=== PATIENT | female | born 1965 | race African-American/Black ===

== ENCOUNTER 2017-02-03 07:00 | Inpatient (IN) ==
[2017-02-03] MEDS ORDERED: CEFUROXIME INJ 1,500 MG in SYRINGE 1 EACH IV ONE (07:38)
[2017-02-03] MEDS ORDERED: GLUCAGON 1 MG VIAL IM PRN (07:38)
[2017-02-03] MEDS ORDERED: DEXTROSE 50% 25 GM/50 ML VIAL IV PRN (07:38)
[2017-02-03] MEDS ORDERED: SODIUM CHLORIDE 0.9% 1,000 ML IV SCH (08:00)
[2017-02-03] MEDS ORDERED: oxyCODONE/ACETAMINOPHEN 5-325 MG TABLET PO PRN (08:30)
[2017-02-03] MEDS ORDERED: ZALEPLON 5 MG CAPSULE PO PRN (08:31)
[2017-02-03] MEDS ORDERED: GABAPENTIN 100 MG CAPSULE PO SCH (09:00)
[2017-02-03] MEDS ORDERED: INFLUENZA VIRUS VACCINE 0.5 ML SYRINGE IM ONE (18:21)
[2017-02-03 18:49] LABS: ABG Base Excess 0.2 MMOL/L (-2.5-2.5); ABG HCO3 24.6 MMOL/L (20-26); ABG Oxygen Saturation 97.9 % (95-100); ABG PH 7.448 (7.35-7.45); ABG TCO2 20.2 MMOL/L (23-27)
[2017-02-03 19:42] LABS: Basophils # 0.1 10*3/uL (0.0-0.2); Basophils % 0.4 % (0.0-0.8); Eosinophils # 0.2 10*3/uL (0.0-0.87); Eosinophils % 1.6 % (0.00-10.9); Hematocrit 39.3 VOL% (35.7-47.0); Hemoglobin 14.4 GM/DL (12.0-16.0); Immature Granulocytes % 0.3 %; Immature Granulocytes Absolute 0.03 #; Lymphocytes # 3.9 10*3/uL (1.4-4.0); Lymphocytes % 34.2 % (21.3-54.2); Mean Corpuscular HGB Conc 36.6 GM/DL (32-36); Mean Corpuscular Hemoglobin 29 PG (27-34); Mean Corpuscular Volume 78.3 FL (87-102); Mean Platelet Volume 11.5 FL (9.6-12.0); Monocytes # 0.7 10*3/uL (0.11-0.8); Monocytes % 6.2 % (1.7-12.7); Neutrophils # 6.5 10*3/uL (1.4-7.4); Neutrophils % 57.3 % (38.7-73.9); Platelet Count 290 T/CUMM (130-400); Red Blood Count 5.02 MC/CUMM (3.8-5.5); White Blood Count 11.4 T/CUMM (4-12)
[2017-02-03 20:08] LABS: Alanine Aminotransferase 117 U/L (13-56); Albumin 3.9 G/DL (3.4-5.0); Alkaline Phosphatase 127 U/L (45-117); Aspartate Amino Transferase 63 U/L (0-37); Bilirubin,Total < 0.39 MG/DL (0.2-1.0); Blood Urea Nitrogen 15 MG/DL (7-18); Calcium 9.4 MG/DL (8.5-10.1); Glucose 113 MG/DL (74-106); Osmolality,Calculated 278.5 MOS/KG (273-304); Potassium 4.2 MMOL/L (3.5-5.1); Sodium 139 MMOL/L (136-145); Total Protein 7.7 G/DL (6.4-8.3)
[2017-02-03] MEDS ORDERED: CITALOPRAM 40 MG TABLET PO SCH (21:00)
[2017-02-03] MEDS: METOPROLOL TARTRATE 25 MG TABLET PO SCH ×2 (21:14)
[2017-02-03] MEDS: CHLORHEXIDINE 4% SOLN 118 ML BOTTLE TOP SCH (21:14)
[2017-02-03] MEDS: CHLORHEXIDINE 0.12% ORAL RINSE 60 ML BOTTLE SWISH/SPIT SCH (21:15)
[2017-02-04] MEDS: CHLORHEXIDINE 4% SOLN 118 ML BOTTLE TOP SCH (00:51)
[2017-02-04] MEDS: CHLORHEXIDINE 0.12% ORAL RINSE 60 ML BOTTLE SWISH/SPIT SCH ×3 (00:53→21:21)
[2017-02-04] MEDS: DOXYCYCLINE HYCLATE 100 MG CAPSULE PO SCH ×2 (00:53→15:49)
[2017-02-04] MEDS: LISINOPRIL/HCTZ 10-12.5 MG TABLET PO SCH ×2 (00:53→15:49)
[2017-02-04] MEDS ORDERED: PAPAVERINE 60 MG/2 ML VIAL ONE (04:34)
[2017-02-04] MEDS ORDERED: VANCOMYCIN 1,000 MG VIAL ONE (04:35)
[2017-02-04] MEDS ORDERED: FAMOTIDINE 20 MG TABLET PO ONE ×2 (05:21→06:00)
[2017-02-04] MEDS ORDERED: DIAZEPAM 5 MG TABLET PO ONE ×2 (05:21→06:00)
[2017-02-04] MEDS ORDERED: CEFUROXIME INJ 1,500 MG in SYRINGE 1 EACH IV ONE (06:00)
[2017-02-04] MEDS ORDERED: TRANEXAMIC ACID 1,000 MG/10 ML VIAL IV ONE ×2 (06:00→08:30)
[2017-02-04] MEDS ORDERED: SUFentanil 250 MCG/5 ML AMP ONE (06:00)
[2017-02-04 07:46] LABS: ABG Base Excess -2.5 MMOL/L (-2.5-2.5); ABG HCO3 22.4 MMOL/L (20-26); ABG PCO2 32.2 MM HG (35-48); ABG PH 7.424 (7.35-7.45); ABG TCO2 18.6 MMOL/L (23-27); Glucose Heart Surgery 107 MG/DL (74-106); Ionized Calcium Arterial 1.19 MMOL/L (1.21-1.46); PCO2 Patient Temp Arterial 32.2 MMHG; PH Patient Temp Arterial 7.424; Patient Temperature 37 CELCIUS; Sodium Heart/CVR 139 MMOL/L (135-145)
[2017-02-04 08:01] LABS: Apearance,Urine CLEAR (Clear); Bilirubin,Urine Negative (Negative); Blood, Urine Negative (Negative); Glucose,Urine (UA) Negative (Negative); Ketones,Urine Negative (Negative); Nitrite,Urine Negative (Negative); Protein,Urine Negative; RBC,Urine 1 /HPF (0-4); Squamous Epithelial Cell,Urine Occasional /HPF (0-10); Urine Color Yellow (Yellow); Urine Specific Gravity 1.012 (1.001-1.035); Urine Urobilinogen < 2.0 EU/DL (0.2-1.0); WBC,Urine <1 /HPF (0-6)
[2017-02-04] MEDS ORDERED: MIDAZOLAM 10 MG/2 ML VIAL ONE ×2 (08:31→12:01)
[2017-02-04] MEDS ORDERED: PHENYLEPHRINE DRIP 40 MG/250 ML PREMIX IV ONE (08:59)
[2017-02-04] MEDS ORDERED: NITROPRUSSIDE 50 MG/2 ML VIAL ONE (08:59)
[2017-02-04] MEDS ORDERED: POTASSIUM CHLORIDE RIDER 100 ML IV ONE (09:00)
[2017-02-04] MEDS ORDERED: CALCIUM CHLORIDE 1,000 MG/10 ML SYRINGE IV ONE (09:00)
[2017-02-04 09:26] LABS: Hemoglobin Heart Surgery 7.7 G/DL (12.0-16.0); PCO2 Patient Temp Venous 36.5 MM HG; PH Patient Temp Venous 7.417; PO2 Patient Temp Venous 34.9 MM HG; Potassium Heart/CVR 4.8 MMOL/L (3.5-5.1); VBG Base Excess -1.4 MEQ/L (0-4); VBG PCO2 43.5 MMHG (41-51); VBG PH 7.359; VBG PO2 46.2 MMHG (17-40)
[2017-02-04 09:52] LABS: Hemoglobin Heart Surgery 8.6 G/DL (12.0-16.0); PH Patient Temp Venous 7.394; PO2 Patient Temp Venous 35.2 MM HG; Potassium Heart/CVR 4.2 MMOL/L (3.5-5.1); VBG Base Excess -2.1 MEQ/L (0-4); VBG HCO3 23.7 MEQ/L (24-28); VBG Oxygen Saturation 78.1 %; VBG PCO2 45.3 MMHG (41-51); VBG PH 7.337; VBG PO2 46.7 MMHG (17-40)
[2017-02-04 10:27] LABS: Hemoglobin Heart Surgery 9.2 G/DL (12.0-16.0); PCO2 Patient Temp Venous 41.1 MM HG; PH Patient Temp Venous 7.402; PO2 Patient Temp Venous 36.1 MM HG; Potassium Heart/CVR 4.4 MMOL/L (3.5-5.1); VBG Base Excess 0.1 MEQ/L (0-4); VBG HCO3 25.2 MEQ/L (24-28); VBG Oxygen Saturation 71.8 %; VBG PCO2 42.9 MMHG (41-51); VBG PH 7.387; VBG PO2 38.7 MMHG (17-40)
[2017-02-04] MEDS ORDERED: THROMBIN TOPICAL (RECOMBINANT) 5,000 UNIT VIAL TOP ONE (10:42)
[2017-02-04] MEDS ORDERED: MAGNESIUM SULFATE 1 GM/2 ML VIAL ONE (10:53)
[2017-02-04] MEDS ORDERED: ALBUMIN 25% 25 GM/100 ML VIAL IV ONE (10:53)
[2017-02-04] MEDS ORDERED: FUROSEMIDE 20 MG/2 ML VIAL ONE (10:53)
[2017-02-04] MEDS ORDERED: PROTAMINE SULFATE 250 MG/25 ML VIAL IV ONE (10:53)
[2017-02-04] MEDS ORDERED: MANNITOL 12.5 GM/50 ML VIAL IV ONE (10:53)
[2017-02-04] MEDS ORDERED: PHENYLEPHRINE DRIP 20 MG/250 ML PREMIX IV ONE ×2 (10:53→12:00)
[2017-02-04] MEDS ORDERED: SODIUM BICARBONATE 50 MEQ/50 ML SYRINGE IV ONE (10:53)
[2017-02-04] MEDS ORDERED: methylPREDNISolone SOD SUC 1,000 MG/8 ML VIAL ONE (10:53)
[2017-02-04] MEDS ORDERED: DEXTROSE 5% KCL 20 MEQ 20 MEQ/1,000 ML BAG IV ONE (10:53)
[2017-02-04] MEDS ORDERED: HEPARIN 10,000 UNIT/10 ML VIAL ONE (10:53)
[2017-02-04 11:03] LABS: ABG Base Excess -2.7 MMOL/L (-2.5-2.5); ABG HCO3 22.2 MMOL/L (20-26); ABG PCO2 35.7 MM HG (35-48); ABG PH 7.392 (7.35-7.45); ABG TCO2 19.8 MMOL/L (23-27); Glucose Heart Surgery 221 MG/DL (74-106); Hematocrit Heart Surgery 29.9 PERCENT (37-47); Hemoglobin Heart Surgery 9.7 G/DL (12.0-16.0); Ionized Calcium Arterial 1.41 MMOL/L (1.21-1.46); PCO2 Patient Temp Arterial 35.7 MMHG; PH Patient Temp Arterial 7.392; Patient Temperature 37 CELCIUS; Potassium Heart/CVR 3.9 MMOL/L (3.5-5.1); Sodium Heart/CVR 136 MMOL/L (135-145)
[2017-02-04] MEDS ORDERED: CALCIUM CHLORIDE 1,000 MG/10 ML VIAL IV ONE (12:00)
[2017-02-04] MEDS ORDERED: LACTATED RINGERS 1,000 ML IV ONE ×2 (12:00→12:01)
[2017-02-04] MEDS ORDERED: HEPARIN/NACL 0.9% 2 UNITS/ML 500 ML IV ONE (12:00)
[2017-02-04] MEDS ORDERED: NITROGLYCERIN DRIP 50 MG/250 ML BOTTLE IV ONE (12:01)
[2017-02-04] MEDS ORDERED: SODIUM CHLORIDE 0.9% 1,000 ML IV ONE (12:01)
[2017-02-04] MEDS ORDERED: ETOMIDATE 20 MG/10 ML VIAL IV ONE (12:01)
[2017-02-04] MEDS ORDERED: SODIUM CHLORIDE 0.9% 500 ML IV ONE (12:01)
[2017-02-04] MEDS ORDERED: VECURONIUM 10 MG VIAL IV ONE (12:01)
[2017-02-04] MEDS ORDERED: SEVOFLURANE 1 UNIT/15 MINUTE INH ONE (12:01)
[2017-02-04] MEDS ORDERED: MAGNESIUM SULF RIDER 4 GM in PREMIX 1 EACH IV PRN (12:08)
[2017-02-04] MEDS ORDERED: MIDAZOLAM 10 MG/2 ML VIAL IV PRN (12:08)
[2017-02-04] MEDS ORDERED: ACETAMINOPHEN 650 MG SUPP RECTAL PRN (12:08)
[2017-02-04] MEDS ORDERED: INSULIN REGULAR 100 UNIT/ML IV PRN (12:08)
[2017-02-04] MEDS ORDERED: CALCIUM CHLORIDE 1,000 MG/10 ML SYRINGE IV PRN (12:08)
[2017-02-04] MEDS ORDERED: MAGNESIUM SULF RIDER 2 GM in PREMIX 1 EACH IV PRN (12:08)
[2017-02-04] MEDS ORDERED: DEXTROSE 50% 25 GM/50 ML VIAL IV PRN ×2 (12:08)
[2017-02-04] MEDS ORDERED: MIDAZOLAM 2 MG/2 ML VIAL IV PRN (12:08)
[2017-02-04] MEDS ORDERED: INSULIN REGULAR 100 UNIT/ML IV ONE ×2 (12:08→13:00)
[2017-02-04] MEDS ORDERED: PHENYLEPHRINE DRIP 40 MG/250 ML PREMIX IV PRN (12:08)
[2017-02-04] MEDS ORDERED: VECURONIUM 10 MG VIAL IV PRN ×2 (12:08)
[2017-02-04] MEDS ORDERED: LACTATED RINGERS 250 ML IV PRN (12:08)
[2017-02-04] MEDS ORDERED: ePHEDrine 50 MG/ML AMP ONE (12:10)
[2017-02-04] MEDS ORDERED: PROTAMINE SULFATE 50 MG/5 ML VIAL IV ONE ×2 (12:10→12:11)
[2017-02-04] MEDS: SODIUM CHLORIDE 0.45% 1,000 ML IV SCH ×2 (12:25→12:26)
[2017-02-04 12:30] LABS: ABG Base Excess -2.5 MMOL/L (-2.5-2.5); ABG HCO3 22.4 MMOL/L (20-26); ABG Oxygen Saturation 96.8 % (95-100); ABG PCO2 39.2 MM HG (35-48); ABG PH 7.375 (7.35-7.45); ABG PO2 107.4 MM HG (80-95); ABG TCO2 23.6 MMOL/L (23-27); Glucose Heart Surgery 145 MG/DL (74-106); Hemoglobin Heart Surgery 10.4 G/DL (12.0-16.0); Potassium Heart/CVR 3.4 MMOL/L (3.5-5.1)
[2017-02-04 12:33] LABS: Basophils % 0.2 % (0.0-0.8); Eosinophils % 0.2 % (0.00-10.9); Hematocrit 27.6 VOL% (35.7-47.0); Immature Granulocytes % 1.2 %; Immature Granulocytes Absolute 0.22 #; Lymphocytes # 1.8 10*3/uL (1.4-4.0); Lymphocytes % 10.4 % (21.3-54.2); Mean Corpuscular HGB Conc 36.2 GM/DL (32-36); Mean Corpuscular Hemoglobin 29 PG (27-34); Mean Platelet Volume 11.3 FL (9.6-12.0); Monocytes # 0.6 10*3/uL (0.11-0.8); Monocytes % 3.2 % (1.7-12.7); Neutrophils # 14.9 10*3/uL (1.4-7.4); Neutrophils % 84.8 % (38.7-73.9); Platelet Count 190 T/CUMM (130-400); Red Blood Count 3.45 MC/CUMM (3.8-5.5); Red Cell Distribution Width 14.1 % (9.3-17.3); White Blood Count 17.6 T/CUMM (4-12)
[2017-02-04 12:54] LABS: INR 1.1; PT Patient Result 11.4 SECS; Partial Thromboplastin Time 29.3 SECS (0-40)
[2017-02-04 13:01] LABS: Bilirubin,Total 0.7 MG/DL (0.2-1.0); Calcium 8.9 MG/DL (8.5-10.1); Magnesium 2.1 MG/DL (1.8-2.4); Osmolality,Calculated 284.1 MOS/KG (273-304); Potassium 3.7 MMOL/L (3.5-5.1); Total Protein 5.4 G/DL (6.4-8.3)
[2017-02-04 13:07] LABS: Troponin I Only 2.72 NG/ML (0.00-0.045)
[2017-02-04] MEDS: KETOROLAC 30 MG/1 ML VIAL IV SCH ×2 (13:21→18:25)
[2017-02-04] MEDS: POTASSIUM CHLORIDE RIDER 20 MEQ in PREMIX 1 EACH IV PRN ×2 (13:27→17:02)
[2017-02-04 14:02] LABS: VBG Base Excess -0.2 MEQ/L (0-4); VBG PCO2 47.9 MMHG (41-51); VBG PH 7.349; VBG PO2 33.2 MMHG (17-40)
[2017-02-04] MEDS: POTASSIUM CHLORIDE RIDER 10 MEQ in PREMIX 1 EACH IV PRN (14:02)
[2017-02-04 14:03] LABS: Glucose Heart Surgery 120 MG/DL (74-106); Potassium Heart/CVR 4.3 MMOL/L (3.5-5.1); Sodium Heart/CVR 138 MMOL/L (135-145); VBG HCO3 25.8 MEQ/L (24-28); VBG Oxygen Saturation 63.8 %
[2017-02-04 15:36] LABS: ABG Base Excess -1.9 MMOL/L (-2.5-2.5); ABG HCO3 22.8 MMOL/L (20-26); ABG PCO2 37.1 MM HG (35-48); ABG PH 7.392 (7.35-7.45); ABG TCO2 20.1 MMOL/L (23-27); Glucose Heart Surgery 125 MG/DL (74-106); Hematocrit Heart Surgery 36.5 PERCENT (37-47); Hemoglobin Heart Surgery 11.9 G/DL (12.0-16.0); Potassium Heart/CVR 4.1 MMOL/L (3.5-5.1)
[2017-02-04] MEDS: MORPHINE 10 MG/1 ML VIAL IV PRN ×2 (16:15→18:25)
[2017-02-04 16:37] LABS: ABG HCO3 22.7 MMOL/L (20-26); ABG Oxygen Saturation 97.1 % (95-100); ABG PCO2 37.5 MM HG (35-48); ABG PH 7.389 (7.35-7.45); ABG PO2 92.9 MM HG (80-95); ABG TCO2 20.4 MMOL/L (23-27); Glucose Heart Surgery 142 MG/DL (74-106); Hematocrit Heart Surgery 33.4 PERCENT (37-47); Hemoglobin Heart Surgery 10.8 G/DL (12.0-16.0); Potassium Heart/CVR 4.2 MMOL/L (3.5-5.1)
[2017-02-04 17:28] LABS: ABG Base Excess -2.1 MMOL/L (-2.5-2.5); ABG HCO3 22.6 MMOL/L (20-26); ABG Oxygen Saturation 97.2 % (95-100); ABG PCO2 40.1 MM HG (35-48); ABG PH 7.367 (7.35-7.45); ABG PO2 97.8 MM HG (80-95); ABG TCO2 20.8 MMOL/L (23-27); Glucose Heart Surgery 148 MG/DL (74-106); Hematocrit Heart Surgery 32.6 PERCENT (37-47); Hemoglobin Heart Surgery 10.6 G/DL (12.0-16.0); Potassium Heart/CVR 4.9 MMOL/L (3.5-5.1)
[2017-02-04] MEDS: PROPOFOL 1,000 MG/100 ML BOTTLE IV SCH (19:21)
[2017-02-04 19:53] LABS: ABG Base Excess -3.8 MMOL/L (-2.5-2.5); ABG HCO3 21.3 MMOL/L (20-26); ABG Oxygen Saturation 96.1 % (95-100); ABG PCO2 42.6 MM HG (35-48); ABG PH 7.324 (7.35-7.45); ABG PO2 89.3 MM HG (80-95); ABG TCO2 20.2 MMOL/L (23-27); Glucose Heart Surgery 159 MG/DL (74-106); Hematocrit Heart Surgery 32.8 PERCENT (37-47); Hemoglobin Heart Surgery 10.6 G/DL (12.0-16.0); Potassium Heart/CVR 4.6 MMOL/L (3.5-5.1)
[2017-02-04] MEDS: CEFUROXIME INJ 1,500 MG in SYRINGE 1 EACH IV SCH (20:14)
[2017-02-04] MEDS: ALBUMIN 5% 12.5 GM in PREMIX 1 EACH IV PRN ×2 (20:14→20:50)
[2017-02-04] MEDS: MORPHINE 2 MG/1 ML SYRINGE IV PRN (20:30)
[2017-02-04 20:47] LABS: CKMB % 3.8 %
[2017-02-04 20:49] LABS: Troponin I Only 4.64 NG/ML (0.00-0.045)
[2017-02-04] MEDS ORDERED: FUROSEMIDE 40 MG/4 ML VIAL IV ONE (21:09)
[2017-02-04] MEDS: INSULIN REGULAR DRIP 100 ML IV SCH (22:12)
[2017-02-05 00:06] LABS: ABG Base Excess -0.7 MMOL/L (-2.5-2.5); ABG HCO3 24.3 MMOL/L (20-26); ABG Oxygen Saturation 94.5 % (95-100); ABG PCO2 41.2 MM HG (35-48); ABG PH 7.388 (7.35-7.45); ABG PO2 81.1 MM HG (80-95); ABG TCO2 25.5 MMOL/L (23-27); Glucose Heart Surgery 145 MG/DL (74-106); Hemoglobin Heart Surgery 10.2 G/DL (12.0-16.0); Potassium Heart/CVR 4.1 MMOL/L (3.5-5.1)
[2017-02-05] MEDS: KETOROLAC 30 MG/1 ML VIAL IV SCH ×4 (00:13→18:14)
[2017-02-05] MEDS: POTASSIUM CHLORIDE RIDER 20 MEQ in PREMIX 1 EACH IV PRN ×2 (00:13→06:15)
[2017-02-05] MEDS: MORPHINE 2 MG/1 ML SYRINGE IV PRN ×2 (01:36→21:16)
[2017-02-05 01:37] LABS: ABG Base Excess -2.3 MMOL/L (-2.5-2.5); ABG HCO3 22.4 MMOL/L (20-26); ABG Oxygen Saturation 97.7 % (95-100); ABG PCO2 41.5 MM HG (35-48); ABG PH 7.353 (7.35-7.45); ABG TCO2 21.2 MMOL/L (23-27); Glucose Heart Surgery 141 MG/DL (74-106); Hematocrit Heart Surgery 30.2 PERCENT (37-47); Hemoglobin Heart Surgery 9.8 G/DL (12.0-16.0); Potassium Heart/CVR 4.6 MMOL/L (3.5-5.1)
[2017-02-05 02:16] LABS: ABG Base Excess -2.2 MMOL/L (-2.5-2.5); ABG HCO3 22.6 MMOL/L (20-26); ABG Oxygen Saturation 96.1 % (95-100); ABG PCO2 42.3 MM HG (35-48); ABG PO2 85.4 MM HG (80-95); ABG TCO2 21.4 MMOL/L (23-27); Glucose Heart Surgery 145 MG/DL (74-106); Hematocrit Heart Surgery 30.9 PERCENT (37-47); Potassium Heart/CVR 4.5 MMOL/L (3.5-5.1)
[2017-02-05] MEDS: MORPHINE 10 MG/1 ML VIAL IV PRN ×3 (02:56→16:05)
[2017-02-05] MEDS: ALBUMIN 5% 12.5 GM in PREMIX 1 EACH IV PRN (03:21)
[2017-02-05 03:58] LABS: ABG Base Excess -0.4 MMOL/L (-2.5-2.5); ABG Oxygen Saturation 95.1 % (95-100); ABG PCO2 44.3 MM HG (35-48); ABG PH 7.369 (7.35-7.45); ABG PO2 84.2 MM HG (80-95); ABG TCO2 26.3 MMOL/L (23-27); Glucose Heart Surgery 150 MG/DL (74-106); Potassium Heart/CVR 4.2 MMOL/L (3.5-5.1)
[2017-02-05 03:59] LABS: Basophils % 0.1 % (0.0-0.8); Hemoglobin 9.4 GM/DL (12.0-16.0); Immature Granulocytes % 0.3 %; Immature Granulocytes Absolute 0.04 #; Lymphocytes % 7.5 % (21.3-54.2); Mean Corpuscular HGB Conc 36.2 GM/DL (32-36); Mean Corpuscular Hemoglobin 29 PG (27-34); Mean Platelet Volume 11.4 FL (9.6-12.0); Monocytes # 0.3 10*3/uL (0.11-0.8); Monocytes % 2.3 % (1.7-12.7); Neutrophils # 11.4 10*3/uL (1.4-7.4); Neutrophils % 89.8 % (38.7-73.9); Platelet Count 166 T/CUMM (130-400); Red Blood Count 3.25 MC/CUMM (3.8-5.5); Red Cell Distribution Width 14.1 % (9.3-17.3); White Blood Count 12.7 T/CUMM (4-12)
[2017-02-05] MEDS ORDERED: FUROSEMIDE 40 MG/4 ML VIAL IV ONE (04:04)
[2017-02-05 04:31] LABS: Alanine Aminotransferase 60 U/L (13-56); Albumin 3.5 G/DL (3.4-5.0); Alkaline Phosphatase 73 U/L (45-117); Aspartate Amino Transferase 65 U/L (0-37); Bilirubin,Total < 0.39 MG/DL (0.2-1.0); Blood Urea Nitrogen 17 MG/DL (7-18); Glucose 142 MG/DL (74-106); Magnesium 1.9 MG/DL (1.8-2.4); Osmolality,Calculated 282.4 MOS/KG (273-304); Potassium 4.3 MMOL/L (3.5-5.1); Sodium 140 MMOL/L (136-145); Total Protein 5.9 G/DL (6.4-8.3)
[2017-02-05 04:34] LABS: CKMB % 3.9 %
[2017-02-05 04:51] LABS: Troponin I Only 6.19 NG/ML (0.00-0.045)
[2017-02-05] MEDS: NITROPRUSSIDE 100 MG in DEXTROSE 5% 250 ML IV PRN (05:56)
[2017-02-05 06:31] LABS: ABG Base Excess -1.4 MMOL/L (-2.5-2.5); ABG HCO3 23.2 MMOL/L (20-26); ABG Oxygen Saturation 96.5 % (95-100); ABG PCO2 45.6 MM HG (35-48); ABG PH 7.339 (7.35-7.45); ABG PO2 91.2 MM HG (80-95); ABG TCO2 22.4 MMOL/L (23-27); Glucose Heart Surgery 155 MG/DL (74-106); Hematocrit Heart Surgery 31.8 PERCENT (37-47); Hemoglobin Heart Surgery 10.3 G/DL (12.0-16.0); Potassium Heart/CVR 4.3 MMOL/L (3.5-5.1)
[2017-02-05] MEDS ORDERED: ZALEPLON 5 MG CAPSULE PO PRN (08:12)
[2017-02-05] MEDS ORDERED: GLUCAGON 1 MG VIAL IM PRN (08:13)
[2017-02-05] MEDS ORDERED: DEXTROSE 50% 25 GM/50 ML VIAL IV PRN (08:13)
[2017-02-05] MEDS: CEFUROXIME INJ 1,500 MG in SYRINGE 1 EACH IV SCH ×2 (11:41→20:14)
[2017-02-05] MEDS: LISINOPRIL/HCTZ 10-12.5 MG TABLET PO SCH (11:42)
[2017-02-05] MEDS: CITALOPRAM 40 MG TABLET PO SCH (11:43)
[2017-02-05] MEDS: HydrOXYzine PAMOATE 25 MG CAPSULE PO SCH ×3 (11:43→21:17)
[2017-02-05] MEDS: CHLORHEXIDINE 0.12% ORAL RINSE 60 ML BOTTLE SWISH/SPIT SCH ×2 (11:43→21:18)
[2017-02-05] MEDS: GABAPENTIN 100 MG CAPSULE PO SCH ×3 (11:43→21:18)
[2017-02-05] MEDS: DOXYCYCLINE HYCLATE 100 MG CAPSULE PO SCH (11:43)
[2017-02-05] MEDS: METOPROLOL TARTRATE 25 MG TABLET PO SCH ×2 (11:43→21:17)
[2017-02-05 13:39] LABS: CKMB % 2.9 %
[2017-02-05 13:50] LABS: Troponin I Only 6.73 NG/ML (0.00-0.045)
[2017-02-05] MEDS: INSULIN REGULAR DRIP 100 ML IV SCH (17:52)
[2017-02-05] MEDS: SODIUM CHLORIDE 0.45% 1,000 ML IV SCH ×2 (17:52)
[2017-02-05] MEDS: PROPOFOL 1,000 MG/100 ML BOTTLE IV SCH (19:13)
[2017-02-05] MEDS: oxyCODONE/ACETAMINOPHEN 5-325 MG TABLET PO PRN (20:13)
[2017-02-06 05:01] LABS: Basophils % 0.2 % (0.0-0.8); Eosinophils % 0.1 % (0.00-10.9); Hematocrit 26.1 VOL% (35.7-47.0); Hemoglobin 9.2 GM/DL (12.0-16.0); Immature Granulocytes % 0.6 %; Immature Granulocytes Absolute 0.11 #; Lymphocytes # 4.4 10*3/uL (1.4-4.0); Lymphocytes % 22.5 % (21.3-54.2); Mean Corpuscular HGB Conc 35.2 GM/DL (32-36); Mean Corpuscular Hemoglobin 29 PG (27-34); Mean Corpuscular Volume 81.6 FL (87-102); Mean Platelet Volume 12.7 FL (9.6-12.0); Monocytes # 1.2 10*3/uL (0.11-0.8); Monocytes % 6.2 % (1.7-12.7); Neutrophils # 13.7 10*3/uL (1.4-7.4); Neutrophils % 70.4 % (38.7-73.9); Platelet Count 165 T/CUMM (130-400); Red Cell Distribution Width 14.5 % (9.3-17.3); White Blood Count 19.4 T/CUMM (4-12)
[2017-02-06 05:44] LABS: Alanine Aminotransferase 57 U/L (13-56); Albumin 3.3 G/DL (3.4-5.0); Alkaline Phosphatase 72 U/L (45-117); Aspartate Amino Transferase 55 U/L (0-37); Bilirubin,Total < 0.39 MG/DL (0.2-1.0); Blood Urea Nitrogen 34 MG/DL (7-18); Calcium 8.3 MG/DL (8.5-10.1); Glucose 112 MG/DL (74-106); Magnesium 2.1 MG/DL (1.8-2.4); Osmolality,Calculated 287.4 MOS/KG (273-304); Potassium 4.1 MMOL/L (3.5-5.1); Sodium 140 MMOL/L (136-145); Total Protein 5.8 G/DL (6.4-8.3)
[2017-02-06] MEDS: MORPHINE 2 MG/1 ML SYRINGE IV PRN ×3 (05:55→19:33)
[2017-02-06] MEDS: MORPHINE 10 MG/1 ML VIAL IV PRN (07:40)
[2017-02-06] MEDS: oxyCODONE/ACETAMINOPHEN 5-325 MG TABLET PO PRN ×2 (08:16→20:45)
[2017-02-06] MEDS: CITALOPRAM 40 MG TABLET PO SCH (08:16)
[2017-02-06] MEDS: GABAPENTIN 100 MG CAPSULE PO SCH ×3 (08:17→20:46)
[2017-02-06] MEDS: HydrOXYzine PAMOATE 25 MG CAPSULE PO SCH ×3 (08:17→20:46)
[2017-02-06] MEDS: DOXYCYCLINE HYCLATE 100 MG CAPSULE PO SCH (08:17)
[2017-02-06] MEDS: METOPROLOL TARTRATE 25 MG TABLET PO SCH ×2 (08:17→20:46)
[2017-02-06] MEDS: LISINOPRIL/HCTZ 10-12.5 MG TABLET PO SCH (08:17)
[2017-02-06] MEDS: CHLORHEXIDINE 0.12% ORAL RINSE 60 ML BOTTLE SWISH/SPIT SCH ×2 (08:17→20:52)
[2017-02-06] MEDS: CLORAZEPATE 3.75 MG TABLET PO SCH ×3 (10:59→20:46)
[2017-02-06] MEDS ORDERED: NITROGLYCERIN DRIP 50 MG/250 ML BOTTLE IV ONE (18:42)
[2017-02-06] MEDS ORDERED: FUROSEMIDE 40 MG/4 ML VIAL ONE (18:44)
[2017-02-06] MEDS ORDERED: FUROSEMIDE 40 MG/4 ML VIAL IV ONE (18:46)
[2017-02-06] MEDS: NITROGLYCERIN DRIP 50 MG/250 ML BOTTLE IV SCH (18:52)
[2017-02-06 19:20] LABS: ABG Base Excess 3.6 MMOL/L (-2.5-2.5); ABG Oxygen Saturation 92.2 % (95-100); ABG PCO2 41.9 MM HG (35-48); ABG PH 7.443 (7.35-7.45); ABG PO2 62.8 MM HG (80-95); ABG TCO2 29.3 MMOL/L (23-27); Allen Test Positive
[2017-02-06] MEDS: ALBUTEROL/IPRATROPIUM 3 ML NEB RESP TX SCH ×2 (20:20→23:56)
[2017-02-07] MEDS: MORPHINE 10 MG/1 ML VIAL IV PRN ×4 (01:35→17:07)
[2017-02-07 03:52] LABS: Basophils # 0.1 10*3/uL (0.0-0.2); Basophils % 0.5 % (0.0-0.8); Eosinophils # 0.2 10*3/uL (0.0-0.87); Eosinophils % 0.9 % (0.00-10.9); Hematocrit 27.5 VOL% (35.7-47.0); Hemoglobin 9.8 GM/DL (12.0-16.0); Immature Granulocytes % 0.6 %; Immature Granulocytes Absolute 0.11 #; Lymphocytes # 5.3 10*3/uL (1.4-4.0); Lymphocytes % 27.9 % (21.3-54.2); Mean Corpuscular HGB Conc 35.6 GM/DL (32-36); Mean Corpuscular Hemoglobin 29 PG (27-34); Mean Corpuscular Volume 80.2 FL (87-102); Mean Platelet Volume 11.8 FL (9.6-12.0); Monocytes # 1.4 10*3/uL (0.11-0.8); Monocytes % 7.5 % (1.7-12.7); Neutrophils # 11.8 10*3/uL (1.4-7.4); Neutrophils % 62.6 % (38.7-73.9); Platelet Count 194 T/CUMM (130-400); Red Blood Count 3.43 MC/CUMM (3.8-5.5); Red Cell Distribution Width 14.1 % (9.3-17.3); White Blood Count 18.9 T/CUMM (4-12)
[2017-02-07 04:22] LABS: Albumin 3.3 G/DL (3.4-5.0); Bilirubin,Direct 0.23 MG/DL (0.0-0.20); Bilirubin,Total 0.6 MG/DL (0.2-1.0); Calcium 8.3 MG/DL (8.5-10.1); Osmolality,Calculated 280.7 MOS/KG (273-304); Potassium 4.1 MMOL/L (3.5-5.1)
[2017-02-07] MEDS: POTASSIUM CHLORIDE RIDER 20 MEQ in PREMIX 1 EACH IV PRN ×2 (05:23→15:21)
[2017-02-07] MEDS: ALBUTEROL/IPRATROPIUM 3 ML NEB RESP TX SCH ×3 (07:27→19:12)
[2017-02-07] MEDS: FUROSEMIDE 40 MG/4 ML VIAL IV PRN (07:52)
[2017-02-07] MEDS: methylPREDNISolone SOD SUC 40 MG/1 ML VIAL IV SCH ×3 (08:33→21:44)
[2017-02-07] MEDS: DOXYCYCLINE HYCLATE 100 MG CAPSULE PO SCH (08:34)
[2017-02-07] MEDS: CITALOPRAM 40 MG TABLET PO SCH (08:34)
[2017-02-07] MEDS: LISINOPRIL/HCTZ 10-12.5 MG TABLET PO SCH (08:34)
[2017-02-07] MEDS: METOPROLOL TARTRATE 25 MG TABLET PO SCH ×2 (08:34→20:29)
[2017-02-07] MEDS: GABAPENTIN 100 MG CAPSULE PO SCH ×3 (08:34→20:29)
[2017-02-07] MEDS: HydrOXYzine PAMOATE 25 MG CAPSULE PO SCH ×3 (08:34→20:30)
[2017-02-07] MEDS: CLORAZEPATE 3.75 MG TABLET PO SCH ×3 (08:34→20:30)
[2017-02-07] MEDS: CHLORHEXIDINE 0.12% ORAL RINSE 60 ML BOTTLE SWISH/SPIT SCH ×2 (08:54→21:45)
[2017-02-07] MEDS: CEFEPIME 1,000 MG in SYRINGE 1 EACH IV SCH ×2 (09:32→21:45)
[2017-02-07 12:14] LABS: ABG Base Excess 4.4 MMOL/L (-2.5-2.5); ABG HCO3 28.3 MMOL/L (20-26); ABG Oxygen Saturation 92.6 % (95-100); ABG PH 7.423 (7.35-7.45); ABG PO2 66.5 MM HG (80-95); ABG TCO2 26.5 MMOL/L (23-27); Allen Test Positive
[2017-02-07] MEDS: MONTELUKAST 10 MG TABLET PO SCH (16:21)
[2017-02-07] MEDS ORDERED: ETOMIDATE 20 MG/10 ML VIAL IV ONE (17:18)
[2017-02-07] MEDS ORDERED: SUCCINYLCHOLINE 200 MG/10 ML VIAL IV ONE (17:18)
[2017-02-07] MEDS ORDERED: MIDAZOLAM 2 MG/2 ML VIAL IV ONE (17:25)
[2017-02-07] MEDS ORDERED: PROPOFOL 1,000 MG/100 ML BOTTLE IV ONE (17:31)
[2017-02-07 18:04] LABS: ABG Base Excess 2.3 MMOL/L (-2.5-2.5); ABG HCO3 27.7 MMOL/L (20-26); ABG Oxygen Saturation 95.4 % (95-100); ABG PCO2 46.3 MM HG (35-48); ABG PH 7.395 (7.35-7.45); ABG PO2 87.7 MM HG (80-95); ABG TCO2 29.1 MMOL/L (23-27); Allen Test Positive; Pt O2 Delivery Device Ventilator
[2017-02-07] MEDS: PROPOFOL 1,000 MG/100 ML BOTTLE IV SCH ×2 (18:12→21:46)
[2017-02-07] MEDS: NITROGLYCERIN DRIP 50 MG/250 ML BOTTLE IV SCH (19:04)
[2017-02-07] MEDS: VANCOMYCIN INJ 1,500 MG in SODIUM CHLORIDE 0.9% 500 ML IV SCH (20:00)
[2017-02-08] MEDS: ALBUTEROL/IPRATROPIUM 3 ML NEB RESP TX SCH ×4 (00:43→19:53)
[2017-02-08 02:38] LABS: ABG Base Excess 3.6 MMOL/L (-2.5-2.5); ABG HCO3 27.6 MMOL/L (20-26); ABG Oxygen Saturation 98.3 % (95-100); ABG PCO2 37.5 MM HG (35-48); ABG PH 7.471 (7.35-7.45); ABG TCO2 24.9 MMOL/L (23-27); Allen Test Positive; Pt O2 Delivery Device Ventilator
[2017-02-08] MEDS: methylPREDNISolone SOD SUC 40 MG/1 ML VIAL IV SCH ×4 (03:41→19:46)
[2017-02-08] MEDS: VANCOMYCIN INJ 1,500 MG in SODIUM CHLORIDE 0.9% 500 ML IV SCH ×2 (03:41→12:00)
[2017-02-08] MEDS: PROPOFOL 1,000 MG/100 ML BOTTLE IV SCH ×4 (04:36→19:43)
[2017-02-08 04:47] LABS: Basophils % 0.1 % (0.0-0.8); Hematocrit 26.3 VOL% (35.7-47.0); Hemoglobin 9.5 GM/DL (12.0-16.0); Immature Granulocytes % 0.6 %; Lymphocytes # 1.7 10*3/uL (1.4-4.0); Lymphocytes % 10.8 % (21.3-54.2); Mean Corpuscular HGB Conc 36.1 GM/DL (32-36); Mean Corpuscular Hemoglobin 29 PG (27-34); Mean Corpuscular Volume 79.7 FL (87-102); Mean Platelet Volume 12.4 FL (9.6-12.0); Monocytes # 0.3 10*3/uL (0.11-0.8); Monocytes % 2.2 % (1.7-12.7); Neutrophils # 13.4 10*3/uL (1.4-7.4); Neutrophils % 86.3 % (38.7-73.9); Platelet Count 193 T/CUMM (130-400); Red Cell Distribution Width 13.8 % (9.3-17.3); White Blood Count 15.6 T/CUMM (4-12)
[2017-02-08 05:07] LABS: Albumin 2.9 G/DL (3.4-5.0); Bilirubin,Total 1.1 MG/DL (0.2-1.0); Calcium 8.5 MG/DL (8.5-10.1)
[2017-02-08 05:08] LABS: Osmolality,Calculated 286.5 MOS/KG (273-304); Potassium 4.1 MMOL/L (3.5-5.1)
[2017-02-08] MEDS: CHLORHEXIDINE 0.12% ORAL RINSE 60 ML BOTTLE SWISH/SPIT SCH ×2 (08:00→20:28)
[2017-02-08] MEDS: CEFEPIME 1,000 MG in SYRINGE 1 EACH IV SCH ×2 (08:45→20:17)
[2017-02-08] MEDS: CITALOPRAM 40 MG TABLET PO SCH (08:50)
[2017-02-08] MEDS: METOPROLOL TARTRATE 25 MG TABLET PO SCH ×2 (08:50→20:16)
[2017-02-08] MEDS: MONTELUKAST 10 MG TABLET PO SCH (08:50)
[2017-02-08] MEDS: oxyCODONE/ACETAMINOPHEN 5-325 MG TABLET PO PRN ×2 (08:50→15:00)
[2017-02-08] MEDS: GABAPENTIN 100 MG CAPSULE PO SCH ×3 (08:50→20:16)
[2017-02-08] MEDS: LISINOPRIL/HCTZ 10-12.5 MG TABLET PO SCH (08:50)
[2017-02-08] MEDS: HydrOXYzine PAMOATE 25 MG CAPSULE PO SCH ×3 (08:50→20:16)
[2017-02-08] MEDS: CLORAZEPATE 3.75 MG TABLET PO SCH ×3 (08:50→20:17)
[2017-02-08] MEDS: DOXYCYCLINE HYCLATE 100 MG CAPSULE PO SCH (08:50)
[2017-02-08] MEDS ORDERED: FUROSEMIDE 40 MG/4 ML VIAL IV ONE (09:05)
[2017-02-08] MEDS ORDERED: ZALEPLON 5 MG CAPSULE PO PRN (09:05)
[2017-02-08] MEDS ORDERED: oxyCODONE/ACETAMINOPHEN 5-325 MG TABLET PO PRN (09:05)
[2017-02-08] MEDS: NITROGLYCERIN DRIP 50 MG/250 ML BOTTLE IV SCH (19:00)
[2017-02-08 19:18] LABS: Free T4 (Free Thyroxine) 1.24 NG/DL (0.76-1.46); Thyroid Stimulating Hormone 0.196 uIU/ml (0.358-3.74)
[2017-02-08] MEDS ORDERED: METOPROLOL TARTRATE 25 MG TABLET PO SCH (21:00)
[2017-02-09] MEDS: ALBUTEROL/IPRATROPIUM 3 ML NEB RESP TX SCH ×4 (00:12→20:09)
[2017-02-09] MEDS: PROPOFOL 1,000 MG/100 ML BOTTLE IV SCH ×4 (01:33→20:51)
[2017-02-09] MEDS: methylPREDNISolone SOD SUC 40 MG/1 ML VIAL IV SCH ×3 (02:39→18:20)
[2017-02-09 03:29] LABS: ABG Base Excess 4.5 MMOL/L (-2.5-2.5); ABG HCO3 28.5 MMOL/L (20-26); ABG Oxygen Saturation 99.8 % (95-100); ABG PCO2 30.6 MM HG (35-48); ABG PH 7.544 (7.35-7.45); ABG TCO2 23.1 MMOL/L (23-27)
[2017-02-09 03:43] LABS: Calcium 8.5 MG/DL (8.5-10.1); Osmolality,Calculated 293.4 MOS/KG (273-304); Potassium 3.5 MMOL/L (3.5-5.1)
[2017-02-09] MEDS: POTASSIUM CHLORIDE RIDER 20 MEQ in PREMIX 1 EACH IV PRN (05:15)
[2017-02-09] MEDS ORDERED: VANCOMYCIN INJ 1,000 MG in SODIUM CHLORIDE 0.9% 500 ML IV SCH (05:50)
[2017-02-09] MEDS: POTASSIUM CHLORIDE RIDER 10 MEQ in PREMIX 1 EACH IV PRN (06:22)
[2017-02-09] MEDS: CHLORHEXIDINE 0.12% ORAL RINSE 60 ML BOTTLE SWISH/SPIT SCH ×2 (08:00→21:56)
[2017-02-09] MEDS: DOXYCYCLINE HYCLATE 100 MG CAPSULE PO SCH (08:30)
[2017-02-09] MEDS: CLORAZEPATE 3.75 MG TABLET PO SCH ×3 (08:30→20:55)
[2017-02-09] MEDS: LISINOPRIL/HCTZ 10-12.5 MG TABLET PO SCH (08:30)
[2017-02-09] MEDS: MONTELUKAST 10 MG TABLET PO SCH (08:30)
[2017-02-09] MEDS: CEFEPIME 1,000 MG in SYRINGE 1 EACH IV SCH ×2 (08:30→21:56)
[2017-02-09] MEDS: oxyCODONE/ACETAMINOPHEN 5-325 MG TABLET PO PRN ×2 (08:30→20:55)
[2017-02-09] MEDS: GABAPENTIN 100 MG CAPSULE PO SCH ×3 (08:30→20:56)
[2017-02-09] MEDS: METOPROLOL TARTRATE 25 MG TABLET PO SCH ×2 (08:30→21:13)
[2017-02-09] MEDS: CITALOPRAM 40 MG TABLET PO SCH (08:30)
[2017-02-09] MEDS: HydrOXYzine PAMOATE 25 MG CAPSULE PO SCH ×3 (08:30→20:55)
[2017-02-09] MEDS ORDERED: DOXYCYCLINE HYCLATE 100 MG CAPSULE PO SCH (09:00)
[2017-02-09] MEDS ORDERED: LISINOPRIL/HCTZ 10-12.5 MG TABLET PO SCH (09:00)
[2017-02-09] MEDS: VANCOMYCIN INJ 1,000 MG in SODIUM CHLORIDE 0.9% 250 ML IV SCH (10:30)
[2017-02-09] MEDS: NITROGLYCERIN DRIP 50 MG/250 ML BOTTLE IV SCH (21:13)
[2017-02-10] MEDS: ALBUTEROL/IPRATROPIUM 3 ML NEB RESP TX SCH ×5 (00:40→19:35)
[2017-02-10] MEDS: methylPREDNISolone SOD SUC 40 MG/1 ML VIAL IV SCH ×3 (02:45→17:45)
[2017-02-10] MEDS: VANCOMYCIN INJ 1,000 MG in SODIUM CHLORIDE 0.9% 250 ML IV SCH ×2 (05:43→21:43)
[2017-02-10] MEDS ORDERED: FUROSEMIDE 40 MG/4 ML VIAL IV ONE (06:58)
[2017-02-10 07:43] LABS: Allen Test Positive
[2017-02-10 07:46] LABS: ABG Base Excess 2.6 MMOL/L (-2.5-2.5); ABG HCO3 26.4 MMOL/L (20-26); ABG Oxygen Saturation 97.1 % (95-100); ABG PCO2 37.6 MM HG (35-48); ABG PH 7.464 (7.35-7.45); ABG TCO2 27.5 MMOL/L (23-27)
[2017-02-10] MEDS: CITALOPRAM 40 MG TABLET PO SCH (08:20)
[2017-02-10] MEDS: DOXYCYCLINE HYCLATE 100 MG CAPSULE PO SCH (08:20)
[2017-02-10] MEDS: LISINOPRIL/HCTZ 10-12.5 MG TABLET PO SCH (08:20)
[2017-02-10] MEDS: CLORAZEPATE 3.75 MG TABLET PO SCH ×3 (08:20→20:36)
[2017-02-10] MEDS: CHLORHEXIDINE 0.12% ORAL RINSE 60 ML BOTTLE SWISH/SPIT SCH ×2 (08:20→20:37)
[2017-02-10] MEDS: GABAPENTIN 100 MG CAPSULE PO SCH ×3 (08:21→20:37)
[2017-02-10] MEDS: MONTELUKAST 10 MG TABLET PO SCH (08:21)
[2017-02-10] MEDS: METOPROLOL TARTRATE 25 MG TABLET PO SCH ×2 (08:21→20:36)
[2017-02-10] MEDS: HydrOXYzine PAMOATE 25 MG CAPSULE PO SCH ×3 (08:21→20:36)
[2017-02-10] MEDS: CEFEPIME 1,000 MG in SYRINGE 1 EACH IV SCH ×2 (08:49→20:36)
[2017-02-10] MEDS: MORPHINE 10 MG/1 ML VIAL IV PRN ×2 (09:21→21:01)
[2017-02-10] MEDS: NITROPRUSSIDE 100 MG in DEXTROSE 5% 250 ML IV PRN (09:54)
[2017-02-10] MEDS ORDERED: ALBUTEROL/IPRATROPIUM 3 ML NEB RESP TX PRN (10:12)
[2017-02-10 10:52] LABS: ABG Base Excess 3.6 MMOL/L (-2.5-2.5); ABG HCO3 27.8 MMOL/L (20-26); ABG Oxygen Saturation 97.1 % (95-100); ABG PCO2 40.5 MM HG (35-48); ABG PH 7.454 (7.35-7.45); ABG PO2 105.1 MM HG (80-95)
[2017-02-10] MEDS ORDERED: PANTOPRAZOLE 40 MG TABLET PO SCH (17:45)
[2017-02-10] MEDS: METOCLOPRAMIDE 10 MG/2 ML VIAL IV PRN (18:06)
[2017-02-10] MEDS: MORPHINE 2 MG/1 ML SYRINGE IV PRN (18:07)
[2017-02-10] MEDS: ONDANSETRON 4 MG/2 ML VIAL IV PRN (18:08)
[2017-02-10] MEDS: PANTOPRAZOLE 40 MG TABLET PO SCH (18:26)
[2017-02-10] MEDS: NITROGLYCERIN DRIP 50 MG/250 ML BOTTLE IV SCH (18:31)
[2017-02-10 20:01] LABS: Basophils # 0.1 10*3/uL (0.0-0.2); Basophils % 0.2 % (0.0-0.8); Eosinophils % 0.1 % (0.00-10.9); Hematocrit 32.6 VOL% (35.7-47.0); Hemoglobin 11.9 GM/DL (12.0-16.0); Immature Granulocytes % 3.4 %; Immature Granulocytes Absolute 1.11 #; Lymphocytes # 2.4 10*3/uL (1.4-4.0); Lymphocytes % 7.4 % (21.3-54.2); Mean Corpuscular HGB Conc 36.5 GM/DL (32-36); Mean Corpuscular Hemoglobin 29 PG (27-34); Mean Corpuscular Volume 78.6 FL (87-102); Mean Platelet Volume 10.6 FL (9.6-12.0); Monocytes # 1.7 10*3/uL (0.11-0.8); Monocytes % 5.2 % (1.7-12.7); Neutrophils # 27.4 10*3/uL (1.4-7.4); Neutrophils % 83.7 % (38.7-73.9); Platelet Count 367 T/CUMM (130-400); Red Blood Count 4.15 MC/CUMM (3.8-5.5); White Blood Count 32.7 T/CUMM (4-12)
[2017-02-10 20:23] LABS: Alanine Aminotransferase 97 U/L (13-56); Albumin 3.2 G/DL (3.4-5.0); Alkaline Phosphatase 100 U/L (45-117); Aspartate Amino Transferase 54 U/L (0-37); Blood Urea Nitrogen 63 MG/DL (7-18); Calcium 8.9 MG/DL (8.5-10.1); Glucose 176 MG/DL (74-106); Osmolality,Calculated 298.5 MOS/KG (273-304); Potassium 3.8 MMOL/L (3.5-5.1); Sodium 139 MMOL/L (136-145); Total Protein 6.6 G/DL (6.4-8.3)
[2017-02-10] MEDS: DOCUSATE SODIUM 100 MG CAPSULE PO SCH (20:36)
[2017-02-10 22:27] LABS: Lymphocytes 12 % (20-55); Nucleated Red Blood Cells 1 (0-5); Platelet Estimate Normal; Segmented Neutrophils 85 % (50-85); Total Cells Counted 100
[2017-02-11] MEDS: methylPREDNISolone SOD SUC 40 MG/1 ML VIAL IV SCH ×3 (01:47→18:11)
[2017-02-11] MEDS: POTASSIUM CHLORIDE RIDER 20 MEQ in PREMIX 1 EACH IV PRN (01:48)
[2017-02-11] MEDS: POTASSIUM CHLORIDE RIDER 10 MEQ in PREMIX 1 EACH IV PRN (02:24)
[2017-02-11 02:50] LABS: ABG Base Excess 1.7 MMOL/L (-2.5-2.5); ABG HCO3 25.9 MMOL/L (20-26); ABG Oxygen Saturation 93.4 % (95-100); ABG PCO2 39.2 MM HG (35-48); ABG PH 7.438 (7.35-7.45); ABG PO2 69.4 MM HG (80-95); ABG TCO2 27.1 MMOL/L (23-27); Allen Test Positive
[2017-02-11] MEDS: METOCLOPRAMIDE 10 MG/2 ML VIAL IV PRN (03:55)
[2017-02-11] MEDS: MORPHINE 10 MG/1 ML VIAL IV PRN ×2 (03:55)
[2017-02-11 04:44] LABS: Basophils # 0.1 10*3/uL (0.0-0.2); Basophils % 0.2 % (0.0-0.8); Hematocrit 33.7 VOL% (35.7-47.0); Hemoglobin 12.2 GM/DL (12.0-16.0); Immature Granulocytes % 1.5 %; Immature Granulocytes Absolute 0.45 #; Lymphocytes # 2.3 10*3/uL (1.4-4.0); Lymphocytes % 7.5 % (21.3-54.2); Mean Corpuscular HGB Conc 36.2 GM/DL (32-36); Mean Corpuscular Hemoglobin 29 PG (27-34); Mean Corpuscular Volume 78.7 FL (87-102); Mean Platelet Volume 10.8 FL (9.6-12.0); Monocytes # 1.8 10*3/uL (0.11-0.8); Monocytes % 5.9 % (1.7-12.7); Neutrophils # 25.6 10*3/uL (1.4-7.4); Neutrophils % 84.9 % (38.7-73.9); Platelet Count 338 T/CUMM (130-400); Red Blood Count 4.28 MC/CUMM (3.8-5.5); White Blood Count 30.2 T/CUMM (4-12)
[2017-02-11 05:21] LABS: Alanine Aminotransferase 89 U/L (13-56); Alkaline Phosphatase 98 U/L (45-117); Aspartate Amino Transferase 43 U/L (0-37); Blood Urea Nitrogen 51 MG/DL (7-18); Calcium 8.8 MG/DL (8.5-10.1); Glucose 154 MG/DL (74-106); Osmolality,Calculated 295.4 MOS/KG (273-304); Potassium 4.7 MMOL/L (3.5-5.1); Sodium 140 MMOL/L (136-145); Total Protein 6.5 G/DL (6.4-8.3)
[2017-02-11 06:03] LABS: Band Neutrophils 1 % (0-10); Lymphocytes 6 % (20-55); Metamyelocytes 1 %; Platelet Estimate Normal; Segmented Neutrophils 86 % (50-85); Total Cells Counted 100
[2017-02-11] MEDS: ALBUTEROL/IPRATROPIUM 3 ML NEB RESP TX SCH ×4 (07:31→19:39)
[2017-02-11] MEDS ORDERED: fentaNYL 100 MCG/2 ML VIAL ONE ×2 (07:51→21:41)
[2017-02-11] MEDS: PROPOFOL 1,000 MG/100 ML BOTTLE IV SCH ×3 (08:00→23:00)
[2017-02-11] MEDS ORDERED: PROPOFOL 200 MG/20 ML VIAL IV ONE (08:10)
[2017-02-11] MEDS ORDERED: PROPOFOL 1,000 MG/100 ML BOTTLE IV ONE (08:10)
[2017-02-11] MEDS ORDERED: SUCCINYLCHOLINE 200 MG/10 ML VIAL ONE (08:11)
[2017-02-11] MEDS ORDERED: PANTOPRAZOLE 40 MG TABLET PO SCH (09:00)
[2017-02-11 09:07] LABS: ABG Base Excess 1.3 MMOL/L (-2.5-2.5); ABG HCO3 21.8 MMOL/L (20-26); ABG Oxygen Saturation 97.3 % (95-100); ABG PCO2 24.3 MM HG (35-48); ABG PH 7.571 (7.35-7.45); ABG PO2 90.8 MM HG (80-95); ABG TCO2 22.6 MMOL/L (23-27); Allen Test Positive; Pt O2 Delivery Device Ventilator
[2017-02-11] MEDS ORDERED: PANTOPRAZOLE 40 MG VIAL IV SCH (10:00)
[2017-02-11] MEDS: CEFEPIME 1,000 MG in SYRINGE 1 EACH IV SCH (11:07)
[2017-02-11] MEDS ORDERED: HEPARIN/NACL 0.9% 2 UNITS/ML 500 ML IV ONE (15:02)
[2017-02-11] MEDS ORDERED: VANCOMYCIN INJ 1,000 MG in SODIUM CHLORIDE 0.9% 250 ML IV SCH (17:00)
[2017-02-11] MEDS: LACTATED RINGERS 1,000 ML IV SCH (18:11)
[2017-02-11] MEDS: VANCOMYCIN INJ 1,000 MG in SODIUM CHLORIDE 0.9% 250 ML IV SCH (18:12)
[2017-02-11] MEDS: DOXYCYCLINE HYCLATE 100 MG CAPSULE PO SCH (18:19)
[2017-02-11] MEDS: HydrOXYzine PAMOATE 25 MG CAPSULE PO SCH ×2 (18:19→20:55)
[2017-02-11] MEDS: CLORAZEPATE 3.75 MG TABLET PO SCH ×2 (18:19→20:55)
[2017-02-11] MEDS: GABAPENTIN 100 MG CAPSULE PO SCH ×2 (18:20→20:55)
[2017-02-11] MEDS: CHLORHEXIDINE 0.12% ORAL RINSE 60 ML BOTTLE SWISH/SPIT SCH ×2 (18:20→20:56)
[2017-02-11] MEDS: METOPROLOL TARTRATE 25 MG TABLET PO SCH ×2 (18:20→20:55)
[2017-02-11] MEDS: LISINOPRIL/HCTZ 10-12.5 MG TABLET PO SCH (18:20)
[2017-02-11] MEDS: MONTELUKAST 10 MG TABLET PO SCH (18:20)
[2017-02-11] MEDS: PANTOPRAZOLE 40 MG TABLET PO SCH (18:21)
[2017-02-11] MEDS: DOCUSATE SODIUM 100 MG CAPSULE PO SCH ×2 (18:21→20:55)
[2017-02-11] MEDS: CITALOPRAM 40 MG TABLET PO SCH (18:21)
[2017-02-11] MEDS: PIPERACILLIN/TAZOBACTAM 3,375 MG in SODIUM CHLORIDE 0.9% 100 ML IV SCH (19:17)
[2017-02-11 19:18] LABS: Apearance,Urine Slightly Hazy (Clear); Bilirubin,Urine Negative (Negative); Blood, Urine Moderate mg/dL (Negative); Glucose,Urine (UA) Negative (Negative); Granular Casts,Urine 5 /LPF (0-1); Hyaline Casts,Urine 47 /LPF (0-3); Ketones,Urine Negative (Negative); Mucus,Urine Few /LPF (Occasional); Nitrite,Urine Negative (Negative); Protein,Urine 30 MG/DL; RBC,Urine 13 /HPF (0-4); Squamous Epithelial Cell,Urine Occasional /HPF (0-10); Urine Color Yellow (Yellow); Urine Specific Gravity 1.026 (1.001-1.035); Urine Urobilinogen < 2.0 EU/DL (0.2-1.0); WBC,Urine 3 /HPF (0-6)
[2017-02-11] MEDS: HYDROmorphone 2 MG/1 ML VIAL IV PRN ×2 (19:19→22:58)
[2017-02-11] MEDS: NITROGLYCERIN DRIP 50 MG/250 ML BOTTLE IV SCH (19:39)
[2017-02-11 20:01] LABS: ABG HCO3 26.2 MMOL/L (20-26); ABG Oxygen Saturation 98.4 % (95-100); ABG PCO2 29.7 MM HG (35-48); ABG PH 7.519 (7.35-7.45); ABG TCO2 21.6 MMOL/L (23-27)
[2017-02-11] MEDS: PANTOPRAZOLE 40 MG VIAL IV SCH (20:55)
[2017-02-11] MEDS ORDERED: MIDAZOLAM 2 MG/2 ML VIAL ONE (21:41)
[2017-02-11] MEDS ORDERED: PHENYLEPHRINE DRIP 20 MG/250 ML PREMIX IV ONE (21:41)
[2017-02-11] MEDS ORDERED: SEVOFLURANE 1 UNIT/15 MINUTE INH ONE (21:41)
[2017-02-11] MEDS ORDERED: ROCURONIUM 100 MG/10 ML VIAL IV ONE (21:42)
[2017-02-11] MEDS ORDERED: SODIUM CHLORIDE 0.9% 1,000 ML IV ONE (21:42)
[2017-02-11] MEDS: FLUCONAZOLE INJ 200 MG in PREMIX 1 EACH IV SCH (22:29)
[2017-02-12] MEDS: methylPREDNISolone SOD SUC 40 MG/1 ML VIAL IV SCH ×3 (01:49→17:52)
[2017-02-12] MEDS: PIPERACILLIN/TAZOBACTAM 3,375 MG in SODIUM CHLORIDE 0.9% 100 ML IV SCH ×3 (01:49→17:52)
[2017-02-12] MEDS: LACTATED RINGERS 1,000 ML IV SCH ×3 (01:50→17:04)
[2017-02-12] MEDS: PROPOFOL 1,000 MG/100 ML BOTTLE IV SCH ×3 (03:21→19:55)
[2017-02-12 03:32] LABS: ABG Base Excess 1.6 MMOL/L (-2.5-2.5); ABG HCO3 26.3 MMOL/L (20-26); ABG Oxygen Saturation 98.7 % (95-100); ABG PCO2 41.8 MM HG (35-48); ABG PH 7.417 (7.35-7.45); ABG PO2 181.5 MM HG (80-95); ABG TCO2 27.6 MMOL/L (23-27)
[2017-02-12 03:36] LABS: Basophils % 0.1 % (0.0-0.8); Hematocrit 29.1 VOL% (35.7-47.0); Hemoglobin 10.4 GM/DL (12.0-16.0); Immature Granulocytes % 2.2 %; Immature Granulocytes Absolute 0.62 #; Lymphocytes # 2.3 10*3/uL (1.4-4.0); Mean Corpuscular HGB Conc 35.7 GM/DL (32-36); Mean Corpuscular Hemoglobin 28 PG (27-34); Mean Corpuscular Volume 79.5 FL (87-102); Mean Platelet Volume 10.6 FL (9.6-12.0); Monocytes # 1.1 10*3/uL (0.11-0.8); Monocytes % 3.9 % (1.7-12.7); Neutrophils # 24.5 10*3/uL (1.4-7.4); Neutrophils % 85.8 % (38.7-73.9); Platelet Count 273 T/CUMM (130-400); Red Blood Count 3.66 MC/CUMM (3.8-5.5); Red Cell Distribution Width 13.8 % (9.3-17.3); White Blood Count 28.6 T/CUMM (4-12)
[2017-02-12] MEDS: HYDROmorphone 2 MG/1 ML VIAL IV PRN ×5 (04:13→23:21)
[2017-02-12 04:16] LABS: Calcium 7.8 MG/DL (8.5-10.1); Magnesium 2.7 MG/DL (1.8-2.4); Osmolality,Calculated 296.1 MOS/KG (273-304); Potassium 4.6 MMOL/L (3.5-5.1)
[2017-02-12 06:11] LABS: Hypochromasia 2+; Lymphocytes 7 % (20-55); Platelet Estimate Normal; Segmented Neutrophils 89 % (50-85); Total Cells Counted 100
[2017-02-12] MEDS: ALBUTEROL/IPRATROPIUM 3 ML NEB RESP TX SCH ×4 (07:39→19:08)
[2017-02-12] MEDS: LISINOPRIL/HCTZ 10-12.5 MG TABLET PO SCH (09:03)
[2017-02-12] MEDS: METOPROLOL TARTRATE 25 MG TABLET PO SCH ×2 (09:03→20:15)
[2017-02-12] MEDS: DOCUSATE SODIUM 100 MG CAPSULE PO SCH ×2 (09:03→20:14)
[2017-02-12] MEDS: GABAPENTIN 100 MG CAPSULE PO SCH ×3 (09:07→20:14)
[2017-02-12] MEDS: CLORAZEPATE 3.75 MG TABLET PO SCH ×3 (09:07→20:14)
[2017-02-12] MEDS: MONTELUKAST 10 MG TABLET PO SCH (09:07)
[2017-02-12] MEDS: HydrOXYzine PAMOATE 25 MG CAPSULE PO SCH ×3 (09:08→20:15)
[2017-02-12] MEDS: DOXYCYCLINE HYCLATE 100 MG CAPSULE PO SCH (09:08)
[2017-02-12] MEDS: PANTOPRAZOLE 40 MG VIAL IV SCH ×2 (09:08→20:13)
[2017-02-12] MEDS: CHLORHEXIDINE 0.12% ORAL RINSE 60 ML BOTTLE SWISH/SPIT SCH ×2 (10:38→20:15)
[2017-02-12] MEDS: VANCOMYCIN INJ 1,000 MG in SODIUM CHLORIDE 0.9% 250 ML IV SCH (13:42)
[2017-02-12] MEDS ORDERED: VANCOMYCIN INJ 750 MG in SODIUM CHLORIDE 0.9% 150 ML IV ONE (14:00)
[2017-02-12] MEDS: NITROGLYCERIN DRIP 50 MG/250 ML BOTTLE IV SCH (19:32)
[2017-02-12] MEDS: FLUCONAZOLE INJ 200 MG in PREMIX 1 EACH IV SCH (22:38)
[2017-02-13] MEDS: LACTATED RINGERS 1,000 ML IV SCH ×3 (02:38→17:24)
[2017-02-13] MEDS: methylPREDNISolone SOD SUC 40 MG/1 ML VIAL IV SCH ×3 (02:39→18:03)
[2017-02-13] MEDS: VANCOMYCIN INJ 1,750 MG in SODIUM CHLORIDE 0.9% 500 ML IV SCH ×2 (02:39→15:19)
[2017-02-13] MEDS: PIPERACILLIN/TAZOBACTAM 3,375 MG in SODIUM CHLORIDE 0.9% 100 ML IV SCH ×3 (02:39→18:03)
[2017-02-13 03:18] LABS: Basophils % 0.2 % (0.0-0.8); Hematocrit 31.2 VOL% (35.7-47.0); Hemoglobin 11.1 GM/DL (12.0-16.0); Immature Granulocytes % 2.2 %; Immature Granulocytes Absolute 0.37 #; Lymphocytes # 1.5 10*3/uL (1.4-4.0); Mean Corpuscular HGB Conc 35.6 GM/DL (32-36); Mean Corpuscular Hemoglobin 29 PG (27-34); Mean Corpuscular Volume 80.4 FL (87-102); Mean Platelet Volume 11.1 FL (9.6-12.0); Monocytes # 0.8 10*3/uL (0.11-0.8); Monocytes % 4.8 % (1.7-12.7); Neutrophils # 14.1 10*3/uL (1.4-7.4); Neutrophils % 83.8 % (38.7-73.9); Platelet Count 170 T/CUMM (130-400); Red Blood Count 3.88 MC/CUMM (3.8-5.5); Red Cell Distribution Width 14.1 % (9.3-17.3); White Blood Count 16.9 T/CUMM (4-12)
[2017-02-13 03:38] LABS: ABG Base Excess 2.5 MMOL/L (-2.5-2.5); ABG HCO3 26.6 MMOL/L (20-26); ABG Oxygen Saturation 97.2 % (95-100); ABG PH 7.412 (7.35-7.45); ABG PO2 91.2 MM HG (80-95); ABG TCO2 25.6 MMOL/L (23-27)
[2017-02-13 03:44] LABS: Calcium 7.9 MG/DL (8.5-10.1); Osmolality,Calculated 302.6 MOS/KG (273-304); Potassium 4.6 MMOL/L (3.5-5.1)
[2017-02-13] MEDS: HYDROmorphone 2 MG/1 ML VIAL IV PRN ×3 (05:09→18:04)
[2017-02-13] MEDS: PROPOFOL 1,000 MG/100 ML BOTTLE IV SCH ×3 (05:45→17:24)
[2017-02-13] MEDS: ALBUTEROL/IPRATROPIUM 3 ML NEB RESP TX SCH ×4 (07:57→19:50)
[2017-02-13] MEDS: LISINOPRIL/HCTZ 10-12.5 MG TABLET PO SCH (08:31)
[2017-02-13] MEDS: MONTELUKAST 10 MG TABLET PO SCH (08:32)
[2017-02-13] MEDS: METOPROLOL TARTRATE 25 MG TABLET PO SCH ×2 (08:32→20:02)
[2017-02-13] MEDS: DOXYCYCLINE HYCLATE 100 MG CAPSULE PO SCH (08:32)
[2017-02-13] MEDS: GABAPENTIN 100 MG CAPSULE PO SCH ×3 (08:32→20:02)
[2017-02-13] MEDS: HydrOXYzine PAMOATE 25 MG CAPSULE PO SCH ×3 (08:32→20:02)
[2017-02-13] MEDS: CLORAZEPATE 3.75 MG TABLET PO SCH ×3 (08:32→20:02)
[2017-02-13] MEDS: PANTOPRAZOLE 40 MG VIAL IV SCH ×2 (08:32→20:02)
[2017-02-13] MEDS: CHLORHEXIDINE 0.12% ORAL RINSE 60 ML BOTTLE SWISH/SPIT SCH ×2 (08:35→20:06)
[2017-02-13] MEDS: DOCUSATE SODIUM 100 MG CAPSULE PO SCH ×2 (10:31→20:01)
[2017-02-13] MEDS ORDERED: FUROSEMIDE 40 MG/4 ML VIAL IV ONE (18:38)
[2017-02-13] MEDS: NITROGLYCERIN DRIP 50 MG/250 ML BOTTLE IV SCH ×2 (19:01→21:06)
[2017-02-13] MEDS: MORPHINE 2 MG/1 ML SYRINGE IV PRN (19:10)
[2017-02-13] MEDS: ALBUMIN 5% 12.5 GM in PREMIX 1 EACH IV PRN (20:47)
[2017-02-14] MEDS: FLUCONAZOLE INJ 200 MG in PREMIX 1 EACH IV SCH ×2 (01:00→22:43)
[2017-02-14] MEDS: PROPOFOL 1,000 MG/100 ML BOTTLE IV SCH ×4 (01:00→22:15)
[2017-02-14] MEDS: PIPERACILLIN/TAZOBACTAM 3,375 MG in SODIUM CHLORIDE 0.9% 100 ML IV SCH ×3 (01:41→19:00)
[2017-02-14] MEDS: methylPREDNISolone SOD SUC 40 MG/1 ML VIAL IV SCH ×3 (01:42→19:25)
[2017-02-14] MEDS: LACTATED RINGERS 1,000 ML IV SCH ×3 (01:55→19:00)
[2017-02-14] MEDS: VANCOMYCIN INJ 1,750 MG in SODIUM CHLORIDE 0.9% 500 ML IV SCH ×2 (02:50→22:03)
[2017-02-14 03:48] LABS: Allen Test Positive; Pt O2 Delivery Device Ventilator
[2017-02-14 03:49] LABS: ABG Base Excess 2.4 MMOL/L (-2.5-2.5); ABG HCO3 26.6 MMOL/L (20-26); ABG PCO2 29.8 MM HG (35-48); ABG PH 7.529 (7.35-7.45); ABG TCO2 23.2 MMOL/L (23-27)
[2017-02-14] MEDS: HYDROmorphone 2 MG/1 ML VIAL IV PRN (05:23)
[2017-02-14 05:33] LABS: Calcium 7.8 MG/DL (8.5-10.1); Magnesium 2.4 MG/DL (1.8-2.4); Osmolality,Calculated 303.6 MOS/KG (273-304); Potassium 4.2 MMOL/L (3.5-5.1)
[2017-02-14 06:38] LABS: Basophils % 0.1 % (0.0-0.8); Hematocrit 22.3 VOL% (35.7-47.0); Immature Granulocytes % 3.9 %; Immature Granulocytes Absolute 0.71 #; Lymphocytes # 1.8 10*3/uL (1.4-4.0); Lymphocytes % 9.7 % (21.3-54.2); Mean Corpuscular HGB Conc 36.3 GM/DL (32-36); Mean Corpuscular Hemoglobin 29 PG (27-34); Mean Corpuscular Volume 80.5 FL (87-102); Monocytes # 0.8 10*3/uL (0.11-0.8); Monocytes % 4.3 % (1.7-12.7); NRBC # 0.04 10*3/uL; Platelet Count 221 T/CUMM (130-400); Red Blood Count 2.77 MC/CUMM (3.8-5.5); White Blood Count 18.3 T/CUMM (4-12)
[2017-02-14 06:39] LABS: Hemoglobin 8.1 GM/DL (12.0-16.0)
[2017-02-14 07:10] LABS: Basophils % 0.1 % (0.0-0.8); Eosinophils % 0.1 % (0.00-10.9); Hematocrit 22.4 VOL% (35.7-47.0); Immature Granulocytes % 4.4 %; Immature Granulocytes Absolute 0.76 #; Lymphocytes # 1.6 10*3/uL (1.4-4.0); Lymphocytes % 9.3 % (21.3-54.2); Mean Corpuscular HGB Conc 35.7 GM/DL (32-36); Mean Corpuscular Hemoglobin 29 PG (27-34); Mean Platelet Volume 11.5 FL (9.6-12.0); Monocytes # 0.8 10*3/uL (0.11-0.8); Monocytes % 4.4 % (1.7-12.7); NRBC # 0.02 10*3/uL; Neutrophils # 14.1 10*3/uL (1.4-7.4); Neutrophils % 81.7 % (38.7-73.9); Platelet Count 227 T/CUMM (130-400); White Blood Count 17.3 T/CUMM (4-12)
[2017-02-14 07:32] LABS: Band Neutrophils 2 % (0-10); Giant Platelets Few; Hypochromasia 1+; Lymphocytes 11 % (20-55); Platelet Estimate Adequate; Segmented Neutrophils 82 % (50-85); Total Cells Counted 100
[2017-02-14] MEDS: ALBUTEROL/IPRATROPIUM 3 ML NEB RESP TX SCH ×4 (07:41→19:36)
[2017-02-14] MEDS ORDERED: SODIUM CHLORIDE 0.9% 1,000 ML IV PRN (07:45)
[2017-02-14 07:46] LABS: Giant Platelets Few; Hypochromasia 1+; Lymphocytes 9 % (20-55); Nucleated Red Blood Cells 1 (0-5); Platelet Estimate Adequate; Segmented Neutrophils 86 % (50-85); Total Cells Counted 100
[2017-02-14] MEDS: METOPROLOL TARTRATE 25 MG TABLET PO SCH ×2 (09:53→23:56)
[2017-02-14] MEDS: DOCUSATE SODIUM 100 MG CAPSULE PO SCH ×2 (09:53→21:31)
[2017-02-14] MEDS: CLORAZEPATE 3.75 MG TABLET PO SCH ×3 (09:53→21:32)
[2017-02-14] MEDS: LISINOPRIL/HCTZ 10-12.5 MG TABLET PO SCH (09:53)
[2017-02-14] MEDS: PANTOPRAZOLE 40 MG VIAL IV SCH ×2 (09:54→21:28)
[2017-02-14] MEDS: MONTELUKAST 10 MG TABLET PO SCH (09:54)
[2017-02-14] MEDS: DOXYCYCLINE HYCLATE 100 MG CAPSULE PO SCH (09:54)
[2017-02-14] MEDS: GABAPENTIN 100 MG CAPSULE PO SCH ×3 (09:54→21:31)
[2017-02-14] MEDS: HydrOXYzine PAMOATE 25 MG CAPSULE PO SCH ×3 (09:54→21:31)
[2017-02-14] MEDS: CHLORHEXIDINE 0.12% ORAL RINSE 60 ML BOTTLE SWISH/SPIT SCH ×2 (09:57→21:31)
[2017-02-14] MEDS ORDERED: VANCOMYCIN INJ 1,750 MG in SODIUM CHLORIDE 0.9% 500 ML IV SCH (15:00)
[2017-02-14] MEDS: NITROGLYCERIN DRIP 50 MG/250 ML BOTTLE IV SCH (21:23)
[2017-02-14 23:44] LABS: Basophils % 0.1 % (0.0-0.8); Hematocrit 27.8 VOL% (35.7-47.0); Hemoglobin 9.8 GM/DL (12.0-16.0); Immature Granulocytes Absolute 0.92 #; Lymphocytes # 1.7 10*3/uL (1.4-4.0); Lymphocytes % 9.3 % (21.3-54.2); Mean Corpuscular HGB Conc 35.3 GM/DL (32-36); Mean Corpuscular Hemoglobin 28 PG (27-34); Mean Corpuscular Volume 80.1 FL (87-102); Mean Platelet Volume 11.2 FL (9.6-12.0); Monocytes % 5.5 % (1.7-12.7); NRBC # 0.03 10*3/uL; Neutrophils # 14.7 10*3/uL (1.4-7.4); Neutrophils % 80.1 % (38.7-73.9); Platelet Count 214 T/CUMM (130-400); Red Blood Count 3.47 MC/CUMM (3.8-5.5); Red Cell Distribution Width 14.4 % (9.3-17.3); White Blood Count 18.4 T/CUMM (4-12)
[2017-02-15] MEDS: HYDROmorphone 2 MG/1 ML VIAL IV PRN ×4 (00:10→17:16)
[2017-02-15 00:18] LABS: Band Neutrophils 1 % (0-10); Lymphocytes 3 % (20-55); Metamyelocytes 4 %; Myelocytes 1 %; Segmented Neutrophils 83 % (50-85)
[2017-02-15 00:19] LABS: Hypochromasia 1+; Platelet Estimate Normal; Target Cells 1+
[2017-02-15 00:20] LABS: Total Cells Counted 100
[2017-02-15] MEDS: PIPERACILLIN/TAZOBACTAM 3,375 MG in SODIUM CHLORIDE 0.9% 100 ML IV SCH ×3 (01:24→18:08)
[2017-02-15] MEDS: ALBUMIN 5% 12.5 GM in PREMIX 1 EACH IV PRN (02:17)
[2017-02-15] MEDS: FUROSEMIDE 40 MG/4 ML VIAL IV PRN (03:06)
[2017-02-15 03:28] LABS: ABG Base Excess -0.3 MMOL/L (-2.5-2.5); ABG Oxygen Saturation 96.2 % (95-100); ABG PH 7.419 (7.35-7.45); ABG PO2 95.5 MM HG (80-95); ABG TCO2 25.2 MMOL/L (23-27); Allen Test Positive; Pt O2 Delivery Device Ventilator
[2017-02-15] MEDS: LACTATED RINGERS 1,000 ML IV SCH ×3 (03:39→20:32)
[2017-02-15 03:55] LABS: Basophils # 0.1 10*3/uL (0.0-0.2); Basophils % 0.3 % (0.0-0.8); Hematocrit 27.9 VOL% (35.7-47.0); Hemoglobin 9.9 GM/DL (12.0-16.0); Immature Granulocytes % 5.3 %; Immature Granulocytes Absolute 0.95 #; Lymphocytes # 1.7 10*3/uL (1.4-4.0); Lymphocytes % 9.3 % (21.3-54.2); Mean Corpuscular HGB Conc 35.5 GM/DL (32-36); Mean Corpuscular Hemoglobin 29 PG (27-34); Mean Corpuscular Volume 80.6 FL (87-102); Mean Platelet Volume 11.5 FL (9.6-12.0); Monocytes % 5.6 % (1.7-12.7); NRBC # 0.03 10*3/uL; Neutrophils # 14.4 10*3/uL (1.4-7.4); Neutrophils % 79.5 % (38.7-73.9); Platelet Count 216 T/CUMM (130-400); Red Blood Count 3.46 MC/CUMM (3.8-5.5); Red Cell Distribution Width 14.4 % (9.3-17.3); White Blood Count 18.1 T/CUMM (4-12)
[2017-02-15 04:04] LABS: INR 1.1; PT Patient Result 11.4 SECS; Partial Thromboplastin Time 22.4 SECS (0-40)
[2017-02-15] MEDS: PROPOFOL 1,000 MG/100 ML BOTTLE IV SCH ×3 (04:09→21:07)
[2017-02-15 04:24] LABS: Calcium 7.8 MG/DL (8.5-10.1); Magnesium 2.2 MG/DL (1.8-2.4); Osmolality,Calculated 300.7 MOS/KG (273-304); Potassium 4.6 MMOL/L (3.5-5.1)
[2017-02-15 04:25] LABS: Band Neutrophils 2 % (0-10); Lymphocytes 10 % (20-55); Nucleated Red Blood Cells 1 (0-5); Segmented Neutrophils 85 % (50-85)
[2017-02-15 04:27] LABS: Hypochromasia 1+; Platelet Estimate Normal; Target Cells 1+
[2017-02-15 04:28] LABS: Total Cells Counted 100
[2017-02-15] MEDS: methylPREDNISolone SOD SUC 40 MG/1 ML VIAL IV SCH ×2 (06:32→18:08)
[2017-02-15] MEDS: ALBUTEROL/IPRATROPIUM 3 ML NEB RESP TX SCH ×4 (07:25→19:53)
[2017-02-15] MEDS: LISINOPRIL/HCTZ 10-12.5 MG TABLET PO SCH (10:46)
[2017-02-15] MEDS: CLORAZEPATE 3.75 MG TABLET PO SCH ×3 (10:46→20:46)
[2017-02-15] MEDS: GABAPENTIN 100 MG CAPSULE PO SCH ×3 (10:47→20:46)
[2017-02-15] MEDS: MONTELUKAST 10 MG TABLET PO SCH (10:47)
[2017-02-15] MEDS: DOXYCYCLINE HYCLATE 100 MG CAPSULE PO SCH (10:47)
[2017-02-15] MEDS: HydrOXYzine PAMOATE 25 MG CAPSULE PO SCH ×3 (10:47→20:46)
[2017-02-15] MEDS: PANTOPRAZOLE 40 MG VIAL IV SCH ×2 (10:48→20:45)
[2017-02-15] MEDS: DOCUSATE SODIUM 100 MG CAPSULE PO SCH ×2 (10:48→20:45)
[2017-02-15] MEDS: CHLORHEXIDINE 0.12% ORAL RINSE 60 ML BOTTLE SWISH/SPIT SCH ×2 (10:58→20:46)
[2017-02-15] MEDS: METOPROLOL TARTRATE 25 MG TABLET PO SCH ×2 (10:59→21:05)
[2017-02-15] MEDS: VANCOMYCIN INJ 1,750 MG in SODIUM CHLORIDE 0.9% 500 ML IV SCH (15:39)
[2017-02-15] MEDS ORDERED: [UNRECOGNIZED DRUG - OTHER] IV SCH (17:00)
[2017-02-15] MEDS ORDERED: TRACE ELEMENTS IV SCH (17:00)
[2017-02-15] MEDS ORDERED: MULTIVITAMIN IV SCH (17:00)
[2017-02-15] MEDS ORDERED: ELECTROLYTE IV SCH (17:00)
[2017-02-15] MEDS: NITROGLYCERIN DRIP 50 MG/250 ML BOTTLE IV SCH (21:07)
[2017-02-15] MEDS: FLUCONAZOLE INJ 200 MG in PREMIX 1 EACH IV SCH (22:16)
[2017-02-16] MEDS: HYDROmorphone 2 MG/1 ML VIAL IV PRN ×5 (03:19→19:30)
[2017-02-16] MEDS: PIPERACILLIN/TAZOBACTAM 3,375 MG in SODIUM CHLORIDE 0.9% 100 ML IV SCH ×3 (03:21→18:20)
[2017-02-16 03:46] LABS: ABG Base Excess 1.8 MMOL/L (-2.5-2.5); ABG Oxygen Saturation 95.1 % (95-100); ABG PCO2 41.8 MM HG (35-48); ABG PH 7.411 (7.35-7.45); ABG PO2 79.9 MM HG (80-95); Allen Test Positive; Pt O2 Delivery Device Ventilator
[2017-02-16] MEDS: LACTATED RINGERS 1,000 ML IV SCH ×2 (04:39→10:09)
[2017-02-16 05:47] LABS: Calcium 7.9 MG/DL (8.5-10.1); Osmolality,Calculated 293.1 MOS/KG (273-304); Phosphorous 2.8 MG/DL (2.5-4.9); Potassium 4.2 MMOL/L (3.5-5.1)
[2017-02-16] MEDS: methylPREDNISolone SOD SUC 40 MG/1 ML VIAL IV SCH ×2 (06:08→18:20)
[2017-02-16] MEDS: METOCLOPRAMIDE 10 MG/2 ML VIAL IV PRN ×2 (06:08→20:28)
[2017-02-16] MEDS: PROPOFOL 1,000 MG/100 ML BOTTLE IV SCH ×3 (06:46→21:24)
[2017-02-16] MEDS ORDERED: methylPREDNISolone SOD SUC 40 MG/1 ML VIAL IM SCH (07:00)
[2017-02-16] MEDS: ALBUTEROL/IPRATROPIUM 3 ML NEB RESP TX SCH ×4 (07:25→20:16)
[2017-02-16] MEDS: VANCOMYCIN INJ 1,750 MG in SODIUM CHLORIDE 0.9% 500 ML IV SCH (09:04)
[2017-02-16] MEDS: FUROSEMIDE 20 MG/2 ML VIAL IV SCH ×2 (09:54→17:13)
[2017-02-16] MEDS: MONTELUKAST 10 MG TABLET PO SCH (09:55)
[2017-02-16] MEDS: hydrALAZINE 20 MG/1 ML VIAL IV SCH ×3 (09:55→23:17)
[2017-02-16] MEDS: CLORAZEPATE 3.75 MG TABLET PO SCH ×3 (09:55→20:28)
[2017-02-16] MEDS: LISINOPRIL/HCTZ 10-12.5 MG TABLET PO SCH (09:55)
[2017-02-16] MEDS: PANTOPRAZOLE 40 MG VIAL IV SCH ×2 (09:55→20:27)
[2017-02-16] MEDS: GABAPENTIN 100 MG CAPSULE PO SCH ×3 (09:56→20:30)
[2017-02-16] MEDS: HydrOXYzine PAMOATE 25 MG CAPSULE PO SCH ×3 (09:56→20:30)
[2017-02-16] MEDS: DOCUSATE SODIUM 100 MG CAPSULE PO SCH ×2 (09:56→20:30)
[2017-02-16] MEDS: CHLORHEXIDINE 0.12% ORAL RINSE 60 ML BOTTLE SWISH/SPIT SCH ×2 (10:04→20:31)
[2017-02-16] MEDS ORDERED: DEXTROSE 10% 1,000 ML IV PRN (10:28)
[2017-02-16] MEDS: INSULIN REGULAR 100 UNIT/ML SUBCUT SCH ×3 (12:12→23:50)
[2017-02-16] MEDS: [UNRECOGNIZED DRUG - OTHER] IV SCH (17:14)
[2017-02-16] MEDS: ELECTROLYTE IV SCH (17:14)
[2017-02-16] MEDS: MULTIVITAMIN IV SCH (17:14)
[2017-02-16] MEDS: TRACE ELEMENTS IV SCH (17:14)
[2017-02-16] MEDS: FLUCONAZOLE INJ 200 MG in PREMIX 1 EACH IV SCH (22:10)
[2017-02-17] MEDS: FUROSEMIDE 20 MG/2 ML VIAL IV SCH ×2 (02:41→09:23)
[2017-02-17] MEDS: PIPERACILLIN/TAZOBACTAM 3,375 MG in SODIUM CHLORIDE 0.9% 100 ML IV SCH ×3 (02:42→20:38)
[2017-02-17] MEDS: PROPOFOL 1,000 MG/100 ML BOTTLE IV SCH ×3 (03:30→18:30)
[2017-02-17 04:14] LABS: ABG Base Excess 5.2 MMOL/L (-2.5-2.5); ABG HCO3 29.1 MMOL/L (20-26); ABG Oxygen Saturation 98.2 % (95-100); ABG PCO2 31.6 MM HG (35-48); ABG PH 7.544 (7.35-7.45); ABG TCO2 23.8 MMOL/L (23-27)
[2017-02-17] MEDS: VANCOMYCIN INJ 1,750 MG in SODIUM CHLORIDE 0.9% 500 ML IV SCH ×2 (05:07→21:40)
[2017-02-17] MEDS: METOCLOPRAMIDE 10 MG/2 ML VIAL IV PRN (05:07)
[2017-02-17 05:57] LABS: Osmolality,Calculated 285.4 MOS/KG (273-304); Potassium 3.5 MMOL/L (3.5-5.1)
[2017-02-17] MEDS: INSULIN REGULAR 100 UNIT/ML SUBCUT SCH ×2 (06:00→18:51)
[2017-02-17] MEDS: methylPREDNISolone SOD SUC 40 MG/1 ML VIAL IV SCH ×2 (06:32→20:20)
[2017-02-17] MEDS: hydrALAZINE 20 MG/1 ML VIAL IV SCH ×2 (06:33→20:32)
[2017-02-17] MEDS: HYDROmorphone 2 MG/1 ML VIAL IV PRN ×3 (06:35→13:30)
[2017-02-17 07:11] LABS: Basophils # 0.1 10*3/uL (0.0-0.2); Basophils % 0.2 % (0.0-0.8); Eosinophils # 0.2 10*3/uL (0.0-0.87); Eosinophils % 0.8 % (0.00-10.9); Hematocrit 30.8 VOL% (35.7-47.0); Hemoglobin 11.2 GM/DL (12.0-16.0); Immature Granulocytes % 5.2 %; Immature Granulocytes Absolute 1.34 #; Lymphocytes # 4.9 10*3/uL (1.4-4.0); Lymphocytes % 19.2 % (21.3-54.2); Mean Corpuscular HGB Conc 36.4 GM/DL (32-36); Mean Corpuscular Hemoglobin 29 PG (27-34); Mean Corpuscular Volume 78.8 FL (87-102); Monocytes # 1.3 10*3/uL (0.11-0.8); Monocytes % 5.2 % (1.7-12.7); Neutrophils # 17.7 10*3/uL (1.4-7.4); Neutrophils % 69.4 % (38.7-73.9); Platelet Count 205 T/CUMM (130-400); Red Blood Count 3.91 MC/CUMM (3.8-5.5); Red Cell Distribution Width 14.1 % (9.3-17.3); White Blood Count 25.5 T/CUMM (4-12)
[2017-02-17 07:37] LABS: Eosinophils 1 % (0-10); Giant Platelets Few; Hypochromasia 1+; Lymphocytes 13 % (20-55); Platelet Estimate Adequate; Segmented Neutrophils 81 % (50-85); Total Cells Counted 100
[2017-02-17] MEDS: ALBUTEROL/IPRATROPIUM 3 ML NEB RESP TX SCH ×4 (07:45→19:17)
[2017-02-17] MEDS: MONTELUKAST 10 MG TABLET PO SCH (09:22)
[2017-02-17] MEDS: LISINOPRIL/HCTZ 10-12.5 MG TABLET PO SCH (09:22)
[2017-02-17] MEDS: HydrOXYzine PAMOATE 25 MG CAPSULE PO SCH ×3 (09:22→21:10)
[2017-02-17] MEDS: GABAPENTIN 100 MG CAPSULE PO SCH ×3 (09:22→21:10)
[2017-02-17] MEDS: CLORAZEPATE 3.75 MG TABLET PO SCH ×3 (09:23→21:10)
[2017-02-17] MEDS: PANTOPRAZOLE 40 MG VIAL IV SCH ×2 (09:23→21:10)
[2017-02-17] MEDS: DOCUSATE SODIUM 100 MG/10 ML UDCUP PO SCH ×2 (09:23→21:09)
[2017-02-17] MEDS: CHLORHEXIDINE 0.12% ORAL RINSE 60 ML BOTTLE SWISH/SPIT SCH ×2 (09:25→21:11)
[2017-02-17] MEDS: ALBUMIN 5% 12.5 GM in PREMIX 1 EACH IV PRN ×2 (15:00→15:34)
[2017-02-17] MEDS: [UNRECOGNIZED DRUG - OTHER] IV SCH (20:20)
[2017-02-17] MEDS: MULTIVITAMIN IV SCH (20:20)
[2017-02-17] MEDS: ELECTROLYTE IV SCH (20:20)
[2017-02-17] MEDS: TRACE ELEMENTS IV SCH (20:20)
[2017-02-17] MEDS: DOCUSATE SODIUM 100 MG CAPSULE PO SCH (20:32)
[2017-02-17] MEDS: MORPHINE 2 MG/1 ML SYRINGE IV PRN (20:49)
[2017-02-17] MEDS: FLUCONAZOLE INJ 200 MG in PREMIX 1 EACH IV SCH (21:19)
[2017-02-18] MEDS: INSULIN REGULAR 100 UNIT/ML SUBCUT SCH ×4 (00:35→17:35)
[2017-02-18] MEDS: MORPHINE 10 MG/1 ML VIAL IV PRN ×2 (00:35→12:30)
[2017-02-18] MEDS: PIPERACILLIN/TAZOBACTAM 3,375 MG in SODIUM CHLORIDE 0.9% 100 ML IV SCH ×3 (01:55→17:00)
[2017-02-18] MEDS: PROPOFOL 1,000 MG/100 ML BOTTLE IV SCH ×5 (02:15→21:17)
[2017-02-18 04:01] LABS: ABG HCO3 26.2 MMOL/L (20-26); ABG Oxygen Saturation 99.1 % (95-100); ABG PCO2 37.7 MM HG (35-48); ABG PH 7.446 (7.35-7.45); ABG TCO2 23.8 MMOL/L (23-27); Allen Test Positive; Pt O2 Delivery Device Ventilator
[2017-02-18 04:18] LABS: Basophils % 0.1 % (0.0-0.8); Eosinophils # 0.1 10*3/uL (0.0-0.87); Eosinophils % 0.5 % (0.00-10.9); Hematocrit 29.7 VOL% (35.7-47.0); Hemoglobin 10.4 GM/DL (12.0-16.0); Lymphocytes # 2.2 10*3/uL (1.4-4.0); Lymphocytes % 9.3 % (21.3-54.2); Mean Corpuscular Hemoglobin 28 PG (27-34); Mean Corpuscular Volume 80.9 FL (87-102); Mean Platelet Volume 11.5 FL (9.6-12.0); Monocytes # 1.2 10*3/uL (0.11-0.8); Monocytes % 5.3 % (1.7-12.7); Neutrophils # 19.3 10*3/uL (1.4-7.4); Neutrophils % 81.8 % (38.7-73.9); Platelet Count 206 T/CUMM (130-400); Red Blood Count 3.67 MC/CUMM (3.8-5.5); Red Cell Distribution Width 14.3 % (9.3-17.3); White Blood Count 23.5 T/CUMM (4-12)
[2017-02-18 04:48] LABS: Eosinophils 1 % (0-10); Giant Platelets Few; Hypochromasia 1+; Lymphocytes 11 % (20-55); Ovalocytes Slight; Platelet Estimate Normal; Segmented Neutrophils 80 % (50-85); Total Cells Counted 100
[2017-02-18 04:50] LABS: Albumin 2.5 G/DL (3.4-5.0); Bilirubin,Total 0.5 MG/DL (0.2-1.0); Calcium 7.5 MG/DL (8.5-10.1); Magnesium 1.8 MG/DL (1.8-2.4); Osmolality,Calculated 291.1 MOS/KG (273-304); Potassium 3.7 MMOL/L (3.5-5.1); Total Protein 4.7 G/DL (6.4-8.3)
[2017-02-18] MEDS: methylPREDNISolone SOD SUC 40 MG/1 ML VIAL IV SCH ×2 (05:14→17:56)
[2017-02-18] MEDS: ALBUTEROL/IPRATROPIUM 3 ML NEB RESP TX SCH ×4 (07:40→20:08)
[2017-02-18] MEDS: MORPHINE 2 MG/1 ML SYRINGE IV PRN ×3 (08:53→18:29)
[2017-02-18] MEDS: DOCUSATE SODIUM 100 MG/10 ML UDCUP PO SCH ×2 (08:53→20:14)
[2017-02-18] MEDS: PANTOPRAZOLE 40 MG VIAL IV SCH ×2 (08:53→20:13)
[2017-02-18] MEDS: METOCLOPRAMIDE 10 MG/2 ML VIAL IV PRN ×3 (08:54→22:13)
[2017-02-18] MEDS: HydrOXYzine PAMOATE 25 MG CAPSULE PO SCH ×3 (08:54→20:14)
[2017-02-18] MEDS: LISINOPRIL/HCTZ 10-12.5 MG TABLET PO SCH (08:54)
[2017-02-18] MEDS: MONTELUKAST 10 MG TABLET PO SCH (08:54)
[2017-02-18] MEDS: GABAPENTIN 100 MG CAPSULE PO SCH ×3 (08:54→20:14)
[2017-02-18] MEDS: CHLORHEXIDINE 0.12% ORAL RINSE 60 ML BOTTLE SWISH/SPIT SCH ×2 (08:55→20:15)
[2017-02-18] MEDS: CLORAZEPATE 3.75 MG TABLET PO SCH ×3 (08:55→20:13)
[2017-02-18] MEDS: POTASSIUM CHLORIDE RIDER 20 MEQ in PREMIX 1 EACH IV PRN (08:57)
[2017-02-18] MEDS: POTASSIUM CHLORIDE RIDER 10 MEQ in PREMIX 1 EACH IV PRN (10:01)
[2017-02-18] MEDS: VANCOMYCIN INJ 2,000 MG in SODIUM CHLORIDE 0.9% 500 ML IV SCH (14:50)
[2017-02-18] MEDS: [UNRECOGNIZED DRUG - OTHER] IV SCH (16:39)
[2017-02-18] MEDS: TRACE ELEMENTS IV SCH (16:39)
[2017-02-18] MEDS: ELECTROLYTE IV SCH (16:39)
[2017-02-18] MEDS: MULTIVITAMIN IV SCH (16:39)
[2017-02-18] MEDS: HYDROmorphone 2 MG/1 ML VIAL IV PRN (20:21)
[2017-02-18] MEDS: FLUCONAZOLE INJ 200 MG in PREMIX 1 EACH IV SCH (22:11)
[2017-02-19] MEDS: INSULIN REGULAR 100 UNIT/ML SUBCUT SCH ×4 (00:49→18:11)
[2017-02-19] MEDS: PIPERACILLIN/TAZOBACTAM 3,375 MG in SODIUM CHLORIDE 0.9% 100 ML IV SCH ×3 (02:10→18:17)
[2017-02-19] MEDS: PROPOFOL 1,000 MG/100 ML BOTTLE IV SCH ×5 (02:10→21:42)
[2017-02-19] MEDS: METOCLOPRAMIDE 10 MG/2 ML VIAL IV PRN ×3 (03:56→20:35)
[2017-02-19] MEDS: HYDROmorphone 2 MG/1 ML VIAL IV PRN (03:56)
[2017-02-19 04:04] LABS: ABG Base Excess 1.3 MMOL/L (-2.5-2.5); ABG HCO3 25.5 MMOL/L (20-26); ABG Oxygen Saturation 95.8 % (95-100); ABG PCO2 36.2 MM HG (35-48); ABG PH 7.447 (7.35-7.45); ABG PO2 77.7 MM HG (80-95); ABG TCO2 22.4 MMOL/L (23-27); Allen Test Positive; Pt O2 Delivery Device Ventilator
[2017-02-19] MEDS ORDERED: FUROSEMIDE 20 MG/2 ML VIAL IV SCH (05:30)
[2017-02-19 05:46] LABS: Basophils % 0.1 % (0.0-0.8); Eosinophils # 0.4 10*3/uL (0.0-0.87); Eosinophils % 1.6 % (0.00-10.9); Hematocrit 29.6 VOL% (35.7-47.0); Hemoglobin 10.5 GM/DL (12.0-16.0); Immature Granulocytes % 2.6 %; Immature Granulocytes Absolute 0.59 #; Lymphocytes # 2.6 10*3/uL (1.4-4.0); Lymphocytes % 11.6 % (21.3-54.2); Mean Corpuscular HGB Conc 35.5 GM/DL (32-36); Mean Corpuscular Hemoglobin 29 PG (27-34); Mean Corpuscular Volume 80.7 FL (87-102); Mean Platelet Volume 11.4 FL (9.6-12.0); Monocytes # 1.4 10*3/uL (0.11-0.8); Monocytes % 6.2 % (1.7-12.7); Neutrophils # 17.4 10*3/uL (1.4-7.4); Neutrophils % 77.9 % (38.7-73.9); Platelet Count 209 T/CUMM (130-400); Red Blood Count 3.67 MC/CUMM (3.8-5.5); Red Cell Distribution Width 14.4 % (9.3-17.3); White Blood Count 22.4 T/CUMM (4-12)
[2017-02-19] MEDS: methylPREDNISolone SOD SUC 40 MG/1 ML VIAL IV SCH ×2 (06:07→18:16)
[2017-02-19 06:11] LABS: Calcium 7.6 MG/DL (8.5-10.1); Magnesium 2.1 MG/DL (1.8-2.4); Osmolality,Calculated 294.7 MOS/KG (273-304); Phosphorous 2.5 MG/DL (2.5-4.9); Prealbumin 30.9 MG/DL (20-40)
[2017-02-19] MEDS: FUROSEMIDE 40 MG/4 ML VIAL IV SCH ×3 (07:16→22:03)
[2017-02-19] MEDS ORDERED: FUROSEMIDE 20 MG/2 ML VIAL IV ONE (07:17)
[2017-02-19] MEDS: ALBUTEROL/IPRATROPIUM 3 ML NEB RESP TX SCH ×4 (07:43→19:59)
[2017-02-19] MEDS: POTASSIUM CHLORIDE RIDER 20 MEQ in PREMIX 1 EACH IV PRN (07:54)
[2017-02-19 08:24] LABS: Eosinophils 1 % (0-10); Hypochromasia 1+; Lymphocytes 15 % (20-55); Platelet Estimate Adequate; Segmented Neutrophils 79 % (50-85); Total Cells Counted 100
[2017-02-19] MEDS: VANCOMYCIN INJ 2,000 MG in SODIUM CHLORIDE 0.9% 500 ML IV SCH (09:09)
[2017-02-19] MEDS: PANTOPRAZOLE 40 MG VIAL IV SCH ×2 (09:10→20:43)
[2017-02-19] MEDS: MONTELUKAST 10 MG TABLET PO SCH (09:10)
[2017-02-19] MEDS: DOCUSATE SODIUM 100 MG/10 ML UDCUP PO SCH ×2 (09:10→20:32)
[2017-02-19] MEDS: HydrOXYzine PAMOATE 25 MG CAPSULE PO SCH ×3 (09:10→20:32)
[2017-02-19] MEDS: CHLORHEXIDINE 0.12% ORAL RINSE 60 ML BOTTLE SWISH/SPIT SCH ×2 (09:10→20:36)
[2017-02-19] MEDS: CLORAZEPATE 3.75 MG TABLET PO SCH ×3 (09:10→20:32)
[2017-02-19] MEDS: LISINOPRIL/HCTZ 10-12.5 MG TABLET PO SCH (09:10)
[2017-02-19] MEDS: GABAPENTIN 100 MG CAPSULE PO SCH ×3 (09:10→20:32)
[2017-02-19] MEDS: MORPHINE 2 MG/1 ML SYRINGE IV PRN (09:12)
[2017-02-19] MEDS: MORPHINE 10 MG/1 ML VIAL IV PRN ×2 (11:45→19:38)
[2017-02-19] MEDS: [UNRECOGNIZED DRUG - OTHER] IV SCH (16:57)
[2017-02-19] MEDS: MULTIVITAMIN IV SCH (16:57)
[2017-02-19] MEDS: TRACE ELEMENTS IV SCH (16:57)
[2017-02-19] MEDS: ELECTROLYTE IV SCH (16:57)
[2017-02-19] MEDS: FLUCONAZOLE INJ 200 MG in PREMIX 1 EACH IV SCH (21:40)
[2017-02-20] MEDS: INSULIN REGULAR 100 UNIT/ML SUBCUT SCH ×4 (00:18→17:43)
[2017-02-20] MEDS: PIPERACILLIN/TAZOBACTAM 3,375 MG in SODIUM CHLORIDE 0.9% 100 ML IV SCH ×3 (01:18→17:10)
[2017-02-20] MEDS: MORPHINE 2 MG/1 ML SYRINGE IV PRN ×2 (01:49→08:46)
[2017-02-20] MEDS: VANCOMYCIN INJ 2,000 MG in SODIUM CHLORIDE 0.9% 500 ML IV SCH ×2 (02:00→20:47)
[2017-02-20] MEDS: PROPOFOL 1,000 MG/100 ML BOTTLE IV SCH ×4 (02:24→22:47)
[2017-02-20 02:32] LABS: ABG Base Excess 2.4 MMOL/L (-2.5-2.5); ABG Oxygen Saturation 97.1 % (95-100); ABG PCO2 36.7 MM HG (35-48); ABG PH 7.468 (7.35-7.45); ABG PO2 92.7 MM HG (80-95); ABG TCO2 27.1 MMOL/L (23-27); Allen Test Positive; Pt O2 Delivery Device Ventilator
[2017-02-20 05:45] LABS: Basophils % 0.2 % (0.0-0.8); Eosinophils # 0.3 10*3/uL (0.0-0.87); Eosinophils % 1.6 % (0.00-10.9); Hematocrit 32.5 VOL% (35.7-47.0); Hemoglobin 11.2 GM/DL (12.0-16.0); Lymphocytes # 2.8 10*3/uL (1.4-4.0); Lymphocytes % 13.9 % (21.3-54.2); Mean Corpuscular HGB Conc 34.5 GM/DL (32-36); Mean Corpuscular Hemoglobin 28 PG (27-34); Mean Corpuscular Volume 81.9 FL (87-102); Mean Platelet Volume 11.5 FL (9.6-12.0); Monocytes # 1.5 10*3/uL (0.11-0.8); Monocytes % 7.3 % (1.7-12.7); Platelet Count 215 T/CUMM (130-400); Red Blood Count 3.97 MC/CUMM (3.8-5.5); Red Cell Distribution Width 14.5 % (9.3-17.3)
[2017-02-20] MEDS: FUROSEMIDE 40 MG/4 ML VIAL IV SCH ×3 (06:05→22:35)
[2017-02-20] MEDS: methylPREDNISolone SOD SUC 40 MG/1 ML VIAL IV SCH ×2 (06:11→18:12)
[2017-02-20 06:19] LABS: Calcium 8.3 MG/DL (8.5-10.1); Potassium 4.2 MMOL/L (3.5-5.1)
[2017-02-20] MEDS: ALBUTEROL/IPRATROPIUM 3 ML NEB RESP TX SCH ×4 (07:16→19:59)
[2017-02-20] MEDS: POTASSIUM CHLORIDE RIDER 20 MEQ in PREMIX 1 EACH IV PRN (08:45)
[2017-02-20] MEDS: DOCUSATE SODIUM 100 MG/10 ML UDCUP PO SCH ×2 (08:46→20:43)
[2017-02-20] MEDS: CLORAZEPATE 3.75 MG TABLET PO SCH ×3 (08:46→20:43)
[2017-02-20] MEDS: LISINOPRIL/HCTZ 10-12.5 MG TABLET PO SCH (08:47)
[2017-02-20] MEDS: GABAPENTIN 100 MG CAPSULE PO SCH ×3 (08:47→20:43)
[2017-02-20] MEDS: METOCLOPRAMIDE 10 MG/2 ML VIAL IV PRN ×2 (08:47→14:30)
[2017-02-20] MEDS: PANTOPRAZOLE 40 MG VIAL IV SCH ×2 (08:47→20:43)
[2017-02-20] MEDS: CHLORHEXIDINE 0.12% ORAL RINSE 60 ML BOTTLE SWISH/SPIT SCH ×2 (08:48→22:36)
[2017-02-20] MEDS: MONTELUKAST 10 MG TABLET PO SCH (08:56)
[2017-02-20] MEDS: HydrOXYzine PAMOATE 25 MG CAPSULE PO SCH ×3 (09:02→20:43)
[2017-02-20] MEDS: MORPHINE 10 MG/1 ML VIAL IV PRN (11:52)
[2017-02-20] MEDS: ELECTROLYTE IV SCH (17:11)
[2017-02-20] MEDS: [UNRECOGNIZED DRUG - OTHER] IV SCH (17:11)
[2017-02-20] MEDS: TRACE ELEMENTS IV SCH (17:11)
[2017-02-20] MEDS: MULTIVITAMIN IV SCH (17:11)
[2017-02-20] MEDS: HYDROmorphone 2 MG/1 ML VIAL IV PRN (20:39)
[2017-02-20] MEDS: FLUCONAZOLE INJ 200 MG in PREMIX 1 EACH IV SCH (22:36)
[2017-02-21] MEDS: INSULIN REGULAR 100 UNIT/ML SUBCUT SCH ×4 (00:37→18:09)
[2017-02-21] MEDS: PIPERACILLIN/TAZOBACTAM 3,375 MG in SODIUM CHLORIDE 0.9% 100 ML IV SCH ×3 (01:49→18:09)
[2017-02-21 04:12] LABS: ABG Base Excess 2.5 MMOL/L (-2.5-2.5); ABG HCO3 26.3 MMOL/L (20-26); ABG Oxygen Saturation 97.4 % (95-100); ABG PCO2 37.8 MM HG (35-48); ABG PO2 95.5 MM HG (80-95); ABG TCO2 27.4 MMOL/L (23-27); Allen Test Positive; Pt O2 Delivery Device Ventilator
[2017-02-21] MEDS: methylPREDNISolone SOD SUC 40 MG/1 ML VIAL IV SCH ×2 (06:00→17:23)
[2017-02-21] MEDS: FUROSEMIDE 40 MG/4 ML VIAL IV SCH ×3 (06:05→22:17)
[2017-02-21] MEDS: METOCLOPRAMIDE 10 MG/2 ML VIAL IV PRN ×3 (06:20→20:39)
[2017-02-21] MEDS: ALBUTEROL/IPRATROPIUM 3 ML NEB RESP TX SCH ×4 (07:41→19:59)
[2017-02-21] MEDS: MORPHINE 2 MG/1 ML SYRINGE IV PRN (08:58)
[2017-02-21] MEDS: PANTOPRAZOLE 40 MG VIAL IV SCH ×2 (08:58→20:45)
[2017-02-21] MEDS: DOCUSATE SODIUM 100 MG/10 ML UDCUP PO SCH ×2 (08:59→20:39)
[2017-02-21] MEDS: HydrOXYzine PAMOATE 25 MG CAPSULE PO SCH ×3 (08:59→20:40)
[2017-02-21] MEDS: LISINOPRIL/HCTZ 10-12.5 MG TABLET PO SCH (08:59)
[2017-02-21] MEDS: GABAPENTIN 100 MG CAPSULE PO SCH ×3 (08:59→20:39)
[2017-02-21] MEDS: CHLORHEXIDINE 0.12% ORAL RINSE 60 ML BOTTLE SWISH/SPIT SCH ×2 (08:59→20:40)
[2017-02-21] MEDS: MONTELUKAST 10 MG TABLET PO SCH (08:59)
[2017-02-21] MEDS: CLORAZEPATE 3.75 MG TABLET PO SCH ×3 (08:59→20:40)
[2017-02-21] MEDS: MORPHINE 10 MG/1 ML VIAL IV PRN (11:17)
[2017-02-21] MEDS: DILTIAZEM INJ 100 MG in SODIUM CHLORIDE 0.9% 100 ML IV SCH ×2 (11:41→22:28)
[2017-02-21] MEDS: VANCOMYCIN INJ 2,000 MG in SODIUM CHLORIDE 0.9% 500 ML IV SCH (15:41)
[2017-02-21] MEDS: MULTIVITAMIN IV SCH (18:17)
[2017-02-21] MEDS: [UNRECOGNIZED DRUG - OTHER] IV SCH (18:17)
[2017-02-21] MEDS: ELECTROLYTE IV SCH (18:17)
[2017-02-21] MEDS: TRACE ELEMENTS IV SCH (18:17)
[2017-02-21] MEDS: HYDROmorphone 2 MG/1 ML VIAL IV PRN ×2 (20:08→23:16)
[2017-02-21] MEDS: FLUCONAZOLE INJ 200 MG in PREMIX 1 EACH IV SCH (22:17)
[2017-02-22] MEDS: INSULIN REGULAR 100 UNIT/ML SUBCUT SCH ×4 (00:50→18:28)
[2017-02-22] MEDS: PIPERACILLIN/TAZOBACTAM 3,375 MG in SODIUM CHLORIDE 0.9% 100 ML IV SCH (02:10)
[2017-02-22] MEDS: methylPREDNISolone SOD SUC 40 MG/1 ML VIAL IV SCH (05:56)
[2017-02-22] MEDS: FUROSEMIDE 40 MG/4 ML VIAL IV SCH ×3 (06:00→23:05)
[2017-02-22 06:52] LABS: Calcium 8.6 MG/DL (8.5-10.1); Osmolality,Calculated 295.3 MOS/KG (273-304); Potassium 3.7 MMOL/L (3.5-5.1)
[2017-02-22 06:56] LABS: Magnesium 2.1 MG/DL (1.8-2.4); Phosphorous 3.3 MG/DL (2.5-4.9); Prealbumin 50.3 MG/DL (20-40)
[2017-02-22] MEDS ORDERED: ENOXAPARIN 40 MG/0.4 ML SYRINGE SUBCUT SCH (08:00)
[2017-02-22] MEDS: PANTOPRAZOLE 40 MG VIAL IV SCH ×2 (08:21→21:14)
[2017-02-22] MEDS: POTASSIUM CHLORIDE RIDER 20 MEQ in PREMIX 1 EACH IV PRN (08:21)
[2017-02-22] MEDS: DOCUSATE SODIUM 100 MG/10 ML UDCUP PO SCH ×2 (08:22→21:13)
[2017-02-22] MEDS: GABAPENTIN 100 MG CAPSULE PO SCH ×3 (08:22→21:13)
[2017-02-22] MEDS: LISINOPRIL/HCTZ 10-12.5 MG TABLET PO SCH (08:22)
[2017-02-22] MEDS: CLARITHROMYCIN 500 MG TABLET PO SCH ×2 (08:22→21:13)
[2017-02-22] MEDS: CLORAZEPATE 3.75 MG TABLET PO SCH ×3 (08:22→21:14)
[2017-02-22] MEDS: CHLORHEXIDINE 0.12% ORAL RINSE 60 ML BOTTLE SWISH/SPIT SCH ×2 (08:22→21:15)
[2017-02-22] MEDS: HydrOXYzine PAMOATE 25 MG CAPSULE PO SCH ×3 (08:22→21:13)
[2017-02-22] MEDS: AMOXICILLIN 500 MG CAPSULE PO SCH ×2 (08:22→21:14)
[2017-02-22] MEDS: VANCOMYCIN INJ 2,000 MG in SODIUM CHLORIDE 0.9% 500 ML IV SCH (08:23)
[2017-02-22] MEDS: ALBUTEROL/IPRATROPIUM 3 ML NEB RESP TX SCH ×4 (08:27→19:29)
[2017-02-22] MEDS: MONTELUKAST 10 MG TABLET PO SCH (09:02)
[2017-02-22 09:31] LABS: Basophils # 0.1 10*3/uL (0.0-0.2); Basophils % 0.3 % (0.0-0.8); Eosinophils # 0.1 10*3/uL (0.0-0.87); Eosinophils % 0.4 % (0.00-10.9); Hematocrit 35.1 VOL% (35.7-47.0); Hemoglobin 12.3 GM/DL (12.0-16.0); Immature Granulocytes Absolute 0.26 #; Lymphocytes # 1.7 10*3/uL (1.4-4.0); Lymphocytes % 6.9 % (21.3-54.2); Mean Corpuscular Hemoglobin 28 PG (27-34); Mean Corpuscular Volume 81.1 FL (87-102); Mean Platelet Volume 11.5 FL (9.6-12.0); Monocytes # 1.1 10*3/uL (0.11-0.8); Monocytes % 4.4 % (1.7-12.7); Neutrophils # 21.8 10*3/uL (1.4-7.4); Platelet Count 273 T/CUMM (130-400); Red Blood Count 4.33 MC/CUMM (3.8-5.5); Red Cell Distribution Width 14.5 % (9.3-17.3); White Blood Count 25.1 T/CUMM (4-12)
[2017-02-22 09:51] LABS: Lymphocytes 8 % (20-55); Segmented Neutrophils 90 % (50-85); Total Cells Counted 100
[2017-02-22 09:52] LABS: Hypochromasia 1+; Microcytosis 1+
[2017-02-22 09:53] LABS: Platelet Estimate Normal
[2017-02-22] MEDS: METOCLOPRAMIDE 10 MG/2 ML VIAL IV SCH ×3 (10:19→22:10)
[2017-02-22] MEDS: MORPHINE 2 MG/1 ML SYRINGE IV PRN ×2 (10:19→18:25)
[2017-02-22] MEDS: DILTIAZEM INJ 100 MG in SODIUM CHLORIDE 0.9% 100 ML IV SCH ×2 (11:00→21:25)
[2017-02-22] MEDS: MORPHINE 10 MG/1 ML VIAL IV PRN (13:38)
[2017-02-22] MEDS: POTASSIUM CHLORIDE RIDER 10 MEQ in PREMIX 1 EACH IV PRN (13:39)
[2017-02-22] MEDS: ELECTROLYTE IV SCH (18:27)
[2017-02-22] MEDS: TRACE ELEMENTS IV SCH (18:27)
[2017-02-22] MEDS: [UNRECOGNIZED DRUG - OTHER] IV SCH (18:27)
[2017-02-22] MEDS: MULTIVITAMIN IV SCH (18:27)
[2017-02-23] MEDS: INSULIN REGULAR 100 UNIT/ML SUBCUT SCH ×4 (00:25→18:06)
[2017-02-23] MEDS: MORPHINE 2 MG/1 ML SYRINGE IV PRN ×3 (01:52→16:33)
[2017-02-23] MEDS: VANCOMYCIN INJ 2,000 MG in SODIUM CHLORIDE 0.9% 500 ML IV SCH (02:57)
[2017-02-23] MEDS: METOCLOPRAMIDE 10 MG/2 ML VIAL IV SCH ×4 (04:17→21:35)
[2017-02-23] MEDS ORDERED: methylPREDNISolone SOD SUC 40 MG/1 ML VIAL IV SCH (06:00)
[2017-02-23] MEDS: DILTIAZEM INJ 100 MG in SODIUM CHLORIDE 0.9% 100 ML IV SCH ×3 (06:16→16:20)
[2017-02-23] MEDS: ALBUTEROL/IPRATROPIUM 3 ML NEB RESP TX SCH ×4 (07:29→19:17)
[2017-02-23] MEDS: FUROSEMIDE 40 MG/4 ML VIAL IV SCH ×3 (08:10→23:38)
[2017-02-23 09:26] LABS: Apearance,Urine CLEAR (Clear); Bacteria,Urine Occasional /HPF (Few); Bilirubin,Urine Negative (Negative); Blood, Urine Moderate mg/dL (Negative); Glucose,Urine (UA) Negative (Negative); Ketones,Urine Negative (Negative); Mucus,Urine Occasional /LPF (Occasional); Nitrite,Urine Negative (Negative); Protein,Urine Negative; RBC,Urine 16 /HPF (0-4); Squamous Epithelial Cell,Urine Occasional /HPF (0-10); Urine Color Straw (Yellow); Urine Specific Gravity 1.006 (1.001-1.035); Urine Urobilinogen < 2.0 EU/DL (0.2-1.0); WBC,Urine 7 /HPF (0-6)
[2017-02-23] MEDS: MEROPENEM 1,000 MG in SYRINGE 1 EACH IV SCH ×2 (10:47→18:25)
[2017-02-23] MEDS ORDERED: metroNIDAZOLE INJ 250 MG in IV BAG 1 EACH IV SCH (11:00)
[2017-02-23] MEDS: ONDANSETRON 4 MG/2 ML VIAL IV PRN (11:16)
[2017-02-23] MEDS: HEPARIN DRIP 25,000 UNITS/500 ML PREMIX IV SCH (12:37)
[2017-02-23] MEDS ORDERED: FAMOTIDINE 20 MG/2 ML VIAL IV ONE (12:45)
[2017-02-23] MEDS ORDERED: METOCLOPRAMIDE 10 MG/2 ML VIAL IV ONE (12:45)
[2017-02-23] MEDS: AMOXICILLIN 500 MG CAPSULE PO SCH ×2 (14:23→21:07)
[2017-02-23] MEDS: CLARITHROMYCIN 500 MG TABLET PO SCH ×2 (14:23→21:08)
[2017-02-23] MEDS: DOCUSATE SODIUM 100 MG/10 ML UDCUP PO SCH ×2 (14:23→21:19)
[2017-02-23] MEDS: GABAPENTIN 100 MG CAPSULE PO SCH ×3 (14:24→21:08)
[2017-02-23] MEDS: CHLORHEXIDINE 0.12% ORAL RINSE 60 ML BOTTLE SWISH/SPIT SCH ×2 (14:24→21:19)
[2017-02-23] MEDS: PANTOPRAZOLE 40 MG VIAL IV SCH ×2 (14:24→21:08)
[2017-02-23] MEDS: CLORAZEPATE 3.75 MG TABLET PO SCH ×3 (14:25→21:08)
[2017-02-23] MEDS: HydrOXYzine PAMOATE 25 MG CAPSULE PO SCH ×3 (14:25→21:08)
[2017-02-23] MEDS: LISINOPRIL/HCTZ 10-12.5 MG TABLET PO SCH (15:26)
[2017-02-23] MEDS: MONTELUKAST 10 MG TABLET PO SCH (15:28)
[2017-02-23 20:50] LABS: Albumin 3.1 G/DL (3.4-5.0); Calcium 8.6 MG/DL (8.5-10.1); Osmolality,Calculated 293.1 MOS/KG (273-304); Potassium 4.2 MMOL/L (3.5-5.1); Total Protein 6.6 G/DL (6.4-8.3)
[2017-02-23 21:02] LABS: INR 1.1; PT Patient Result 11.9 SECS
[2017-02-23 21:05] LABS: Partial Thromboplastin Time 101.4 SECS (0-40)
[2017-02-24] MEDS: INSULIN REGULAR 100 UNIT/ML SUBCUT SCH ×4 (00:20→18:40)
[2017-02-24 01:27] LABS: Basophils # 0.2 10*3/uL (0.0-0.2); Basophils % 0.7 % (0.0-0.8); Eosinophils # 0.7 10*3/uL (0.0-0.87); Eosinophils % 2.4 % (0.00-10.9); Hematocrit 32.6 VOL% (35.7-47.0); Hemoglobin 11.3 GM/DL (12.0-16.0); Immature Granulocytes % 1.4 %; Immature Granulocytes Absolute 0.39 #; Lymphocytes # 4.3 10*3/uL (1.4-4.0); Lymphocytes % 15.1 % (21.3-54.2); Mean Corpuscular HGB Conc 34.7 GM/DL (32-36); Mean Corpuscular Hemoglobin 28 PG (27-34); Mean Corpuscular Volume 81.9 FL (87-102); Monocytes # 2.5 10*3/uL (0.11-0.8); Monocytes % 8.9 % (1.7-12.7); Neutrophils # 20.2 10*3/uL (1.4-7.4); Neutrophils % 71.5 % (38.7-73.9); Platelet Count 111 T/CUMM (130-400); Red Blood Count 3.98 MC/CUMM (3.8-5.5); Red Cell Distribution Width 14.7 % (9.3-17.3); White Blood Count 28.2 T/CUMM (4-12)
[2017-02-24 01:37] LABS: INR 1.1; PT Patient Result 11.8 SECS
[2017-02-24] MEDS: DILTIAZEM INJ 100 MG in SODIUM CHLORIDE 0.9% 100 ML IV SCH ×2 (01:37→11:46)
[2017-02-24 01:40] LABS: Partial Thromboplastin Time 45.7 SECS (0-40)
[2017-02-24 01:58] LABS: Band Neutrophils 1 % (0-10); Eosinophils 2 % (0-10); Lymphocytes 16 % (20-55); Segmented Neutrophils 73 % (50-85)
[2017-02-24 01:59] LABS: Platelet Estimate Adequate; Total Cells Counted 100
[2017-02-24 03:43] LABS: ABG Base Excess 3.3 MMOL/L (-2.5-2.5); ABG HCO3 26.1 MMOL/L (20-26); ABG Oxygen Saturation 93.3 % (95-100); ABG PCO2 33.5 MM HG (35-48); ABG PH 7.509 (7.35-7.45); ABG PO2 66.3 MM HG (80-95); ABG TCO2 27.1 MMOL/L (23-27)
[2017-02-24] MEDS: MEROPENEM 1,000 MG in SYRINGE 1 EACH IV SCH ×3 (03:43→17:00)
[2017-02-24] MEDS: HEPARIN DRIP 25,000 UNITS/500 ML PREMIX IV SCH (03:57)
[2017-02-24] MEDS: METOCLOPRAMIDE 10 MG/2 ML VIAL IV SCH ×4 (05:09→22:41)
[2017-02-24] MEDS: ALBUTEROL/IPRATROPIUM 3 ML NEB RESP TX SCH ×5 (07:34→19:28)
[2017-02-24 08:41] LABS: INR 1.1; PT Patient Result 11.9 SECS
[2017-02-24] MEDS: PANTOPRAZOLE 40 MG VIAL IV SCH ×2 (08:45→20:55)
[2017-02-24] MEDS: FUROSEMIDE 40 MG/4 ML VIAL IV SCH ×3 (08:45→22:43)
[2017-02-24] MEDS: CLARITHROMYCIN 500 MG TABLET PO SCH ×2 (08:46→20:56)
[2017-02-24] MEDS: DOCUSATE SODIUM 100 MG/10 ML UDCUP PO SCH ×2 (08:46→20:56)
[2017-02-24] MEDS: AMOXICILLIN 500 MG CAPSULE PO SCH ×2 (08:46→20:56)
[2017-02-24] MEDS: LISINOPRIL/HCTZ 10-12.5 MG TABLET PO SCH (08:46)
[2017-02-24] MEDS: HydrOXYzine PAMOATE 25 MG CAPSULE PO SCH ×2 (08:46→15:47)
[2017-02-24] MEDS: CLORAZEPATE 3.75 MG TABLET PO SCH ×2 (08:46→15:47)
[2017-02-24] MEDS: GABAPENTIN 100 MG CAPSULE PO SCH ×3 (08:46→20:56)
[2017-02-24] MEDS: MONTELUKAST 10 MG TABLET PO SCH (08:46)
[2017-02-24] MEDS: CHLORHEXIDINE 0.12% ORAL RINSE 60 ML BOTTLE SWISH/SPIT SCH (08:47)
[2017-02-24 08:51] LABS: Partial Thromboplastin Time 89.6 SECS (0-40)
[2017-02-24] MEDS ORDERED: APIXABAN 5 MG TABLET PO SCH (11:00)
[2017-02-24] MEDS: APIXABAN 2.5 MG TABLET PO SCH ×2 (11:30→20:56)
[2017-02-24] MEDS: MORPHINE 2 MG/1 ML SYRINGE IV PRN (20:56)
[2017-02-25] MEDS: MEROPENEM 1,000 MG in SYRINGE 1 EACH IV SCH ×3 (02:32→18:15)
[2017-02-25] MEDS: CHLORHEXIDINE 0.12% ORAL RINSE 60 ML BOTTLE SWISH/SPIT SCH ×3 (02:33→20:07)
[2017-02-25] MEDS: INSULIN REGULAR 100 UNIT/ML SUBCUT SCH ×4 (02:33→17:50)
[2017-02-25 03:38] LABS: ABG Base Excess 5.8 MMOL/L (-2.5-2.5); ABG HCO3 29.6 MMOL/L (20-26); ABG PCO2 37.2 MM HG (35-48); ABG PH 7.502 (7.35-7.45); ABG PO2 72.2 MM HG (80-95); Allen Test Positive; Pt O2 Delivery Device Venturi Mask
[2017-02-25] MEDS: METOCLOPRAMIDE 10 MG/2 ML VIAL IV SCH ×4 (03:52→23:10)
[2017-02-25 04:20] LABS: Basophils # 0.1 10*3/uL (0.0-0.2); Basophils % 0.7 % (0.0-0.8); Eosinophils # 0.6 10*3/uL (0.0-0.87); Eosinophils % 3.2 % (0.00-10.9); Hematocrit 28.2 VOL% (35.7-47.0); Immature Granulocytes Absolute 0.19 #; Lymphocytes # 2.9 10*3/uL (1.4-4.0); Lymphocytes % 14.7 % (21.3-54.2); Mean Corpuscular HGB Conc 35.5 GM/DL (32-36); Mean Corpuscular Hemoglobin 29 PG (27-34); Mean Platelet Volume 11.7 FL (9.6-12.0); Monocytes # 1.7 10*3/uL (0.11-0.8); Monocytes % 8.6 % (1.7-12.7); Neutrophils # 14.3 10*3/uL (1.4-7.4); Neutrophils % 71.8 % (38.7-73.9); Platelet Count 237 T/CUMM (130-400); Red Blood Count 3.48 MC/CUMM (3.8-5.5); Red Cell Distribution Width 14.5 % (9.3-17.3); White Blood Count 19.9 T/CUMM (4-12)
[2017-02-25 04:41] LABS: Calcium 8.3 MG/DL (8.5-10.1); Magnesium 2.3 MG/DL (1.8-2.4); Osmolality,Calculated 303.8 MOS/KG (273-304); Potassium 3.6 MMOL/L (3.5-5.1)
[2017-02-25 05:01] LABS: Phosphorous 3.6 MG/DL (2.5-4.9); Prealbumin 26.1 MG/DL (20-40)
[2017-02-25] MEDS: FUROSEMIDE 40 MG/4 ML VIAL IV SCH ×3 (06:17→23:13)
[2017-02-25] MEDS: POTASSIUM CHLORIDE RIDER 20 MEQ in PREMIX 1 EACH IV PRN (06:22)
[2017-02-25] MEDS: ALBUTEROL/IPRATROPIUM 3 ML NEB RESP TX SCH ×4 (07:32→19:47)
[2017-02-25] MEDS: PANTOPRAZOLE 40 MG VIAL IV SCH ×2 (09:30→20:04)
[2017-02-25] MEDS: GABAPENTIN 100 MG CAPSULE PO SCH ×3 (09:30→20:07)
[2017-02-25] MEDS: MONTELUKAST 10 MG TABLET PO SCH (09:30)
[2017-02-25] MEDS: CLARITHROMYCIN 500 MG TABLET PO SCH ×2 (09:30→20:07)
[2017-02-25] MEDS: DOCUSATE SODIUM 100 MG/10 ML UDCUP PO SCH ×2 (09:30→20:07)
[2017-02-25] MEDS: AMOXICILLIN 500 MG CAPSULE PO SCH ×2 (09:30→20:07)
[2017-02-25] MEDS: APIXABAN 2.5 MG TABLET PO SCH ×2 (09:30→20:07)
[2017-02-25] MEDS: POTASSIUM CHLORIDE RIDER 10 MEQ in PREMIX 1 EACH IV PRN (10:23)
[2017-02-25] MEDS: LISINOPRIL/HCTZ 10-12.5 MG TABLET PO SCH ×2 (10:28→16:40)
[2017-02-25] MEDS ORDERED: ACETAMINOPHEN 325 MG TABLET ONE (16:48)
[2017-02-25] MEDS: ACETAMINOPHEN 325 MG TABLET PO PRN (16:58)
[2017-02-25] MEDS: METOPROLOL TARTRATE 25 MG TABLET PO SCH (20:07)
[2017-02-26] MEDS: INSULIN REGULAR 100 UNIT/ML SUBCUT SCH ×4 (00:16→17:54)
[2017-02-26] MEDS: MEROPENEM 1,000 MG in SYRINGE 1 EACH IV SCH ×3 (02:25→17:54)
[2017-02-26] MEDS: ACETAMINOPHEN 325 MG TABLET PO PRN (03:34)
[2017-02-26] MEDS: METOCLOPRAMIDE 10 MG/2 ML VIAL IV SCH ×4 (03:34→22:59)
[2017-02-26 04:02] LABS: Basophils # 0.1 10*3/uL (0.0-0.2); Basophils % 0.8 % (0.0-0.8); Eosinophils # 0.6 10*3/uL (0.0-0.87); Eosinophils % 3.3 % (0.00-10.9); Hematocrit 29.9 VOL% (35.7-47.0); Hemoglobin 10.4 GM/DL (12.0-16.0); Immature Granulocytes % 0.7 %; Immature Granulocytes Absolute 0.13 #; Lymphocytes # 1.6 10*3/uL (1.4-4.0); Lymphocytes % 8.8 % (21.3-54.2); Mean Corpuscular HGB Conc 34.8 GM/DL (32-36); Mean Corpuscular Hemoglobin 28 PG (27-34); Mean Corpuscular Volume 81.7 FL (87-102); Mean Platelet Volume 11.7 FL (9.6-12.0); Monocytes # 1.5 10*3/uL (0.11-0.8); Monocytes % 8.2 % (1.7-12.7); Neutrophils # 13.8 10*3/uL (1.4-7.4); Neutrophils % 78.2 % (38.7-73.9); Platelet Count 246 T/CUMM (130-400); Red Blood Count 3.66 MC/CUMM (3.8-5.5); Red Cell Distribution Width 14.6 % (9.3-17.3); White Blood Count 17.7 T/CUMM (4-12)
[2017-02-26 04:26] LABS: Calcium 8.4 MG/DL (8.5-10.1); Magnesium 2.4 MG/DL (1.8-2.4); Osmolality,Calculated 304.7 MOS/KG (273-304); Potassium 3.7 MMOL/L (3.5-5.1)
[2017-02-26] MEDS: POTASSIUM CHLORIDE RIDER 20 MEQ in PREMIX 1 EACH IV PRN (05:08)
[2017-02-26] MEDS: POTASSIUM CHLORIDE RIDER 10 MEQ in PREMIX 1 EACH IV PRN (06:10)
[2017-02-26] MEDS: FUROSEMIDE 40 MG/4 ML VIAL IV SCH (06:14)
[2017-02-26] MEDS: ALBUTEROL/IPRATROPIUM 3 ML NEB RESP TX SCH ×4 (07:43→19:17)
[2017-02-26] MEDS: GABAPENTIN 100 MG CAPSULE PO SCH ×3 (09:04→20:01)
[2017-02-26] MEDS: DOCUSATE SODIUM 100 MG/10 ML UDCUP PO SCH ×2 (09:04→20:01)
[2017-02-26] MEDS: CLARITHROMYCIN 500 MG TABLET PO SCH (09:04)
[2017-02-26] MEDS: MONTELUKAST 10 MG TABLET PO SCH (09:04)
[2017-02-26] MEDS: APIXABAN 2.5 MG TABLET PO SCH ×2 (09:04→20:01)
[2017-02-26] MEDS: PANTOPRAZOLE 40 MG VIAL IV SCH ×2 (09:04→20:02)
[2017-02-26] MEDS: AMOXICILLIN 500 MG CAPSULE PO SCH (09:04)
[2017-02-26] MEDS: METOPROLOL TARTRATE 25 MG TABLET PO SCH ×2 (09:05→20:01)
[2017-02-26] MEDS: CHLORHEXIDINE 0.12% ORAL RINSE 60 ML BOTTLE SWISH/SPIT SCH ×2 (09:16→20:02)
[2017-02-26] MEDS: FUROSEMIDE 20 MG/2 ML VIAL IV SCH ×2 (11:21→18:32)
[2017-02-26] MEDS: MORPHINE 2 MG/1 ML SYRINGE IV PRN (17:53)
[2017-02-27] MEDS: ACETAMINOPHEN 325 MG TABLET PO PRN (00:35)
[2017-02-27] MEDS: INSULIN REGULAR 100 UNIT/ML SUBCUT SCH ×4 (00:55→19:54)
[2017-02-27] MEDS: MEROPENEM 1,000 MG in SYRINGE 1 EACH IV SCH ×3 (02:31→19:52)
[2017-02-27] MEDS: FUROSEMIDE 20 MG/2 ML VIAL IV SCH ×3 (03:41→20:04)
[2017-02-27] MEDS: METOCLOPRAMIDE 10 MG/2 ML VIAL IV SCH ×4 (03:42→22:33)
[2017-02-27 04:15] LABS: Basophils # 0.1 10*3/uL (0.0-0.2); Basophils % 0.9 % (0.0-0.8); Eosinophils # 0.8 10*3/uL (0.0-0.87); Hematocrit 31.5 VOL% (35.7-47.0); Hemoglobin 10.9 GM/DL (12.0-16.0); Immature Granulocytes % 0.5 %; Immature Granulocytes Absolute 0.07 #; Lymphocytes % 15.9 % (21.3-54.2); Mean Corpuscular HGB Conc 34.6 GM/DL (32-36); Mean Corpuscular Hemoglobin 29 PG (27-34); Mean Corpuscular Volume 82.2 FL (87-102); Mean Platelet Volume 12.1 FL (9.6-12.0); Monocytes % 7.9 % (1.7-12.7); Neutrophils # 8.9 10*3/uL (1.4-7.4); Neutrophils % 68.8 % (38.7-73.9); Platelet Count 226 T/CUMM (130-400); Red Blood Count 3.83 MC/CUMM (3.8-5.5); Red Cell Distribution Width 14.3 % (9.3-17.3); White Blood Count 12.9 T/CUMM (4-12)
[2017-02-27 05:06] LABS: Calcium 8.9 MG/DL (8.5-10.1); Magnesium 2.7 MG/DL (1.8-2.4); Osmolality,Calculated 309.4 MOS/KG (273-304)
[2017-02-27] MEDS: POTASSIUM CHLORIDE RIDER 20 MEQ in PREMIX 1 EACH IV PRN (06:14)
[2017-02-27] MEDS: ALBUTEROL/IPRATROPIUM 3 ML NEB RESP TX SCH ×4 (07:20→18:17)
[2017-02-27] MEDS: GABAPENTIN 100 MG CAPSULE PO SCH ×3 (09:28→20:04)
[2017-02-27] MEDS: METOPROLOL TARTRATE 25 MG TABLET PO SCH ×2 (09:28→20:04)
[2017-02-27] MEDS: DOCUSATE SODIUM 100 MG/10 ML UDCUP PO SCH ×2 (09:29→20:09)
[2017-02-27] MEDS: PANTOPRAZOLE 40 MG VIAL IV SCH ×2 (09:29→20:04)
[2017-02-27] MEDS: CHLORHEXIDINE 0.12% ORAL RINSE 60 ML BOTTLE SWISH/SPIT SCH ×2 (09:29→20:09)
[2017-02-27] MEDS: MONTELUKAST 10 MG TABLET PO SCH (09:29)
[2017-02-27] MEDS: APIXABAN 2.5 MG TABLET PO SCH ×2 (09:29→20:04)
[2017-02-27] MEDS: MORPHINE 2 MG/1 ML SYRINGE IV PRN (23:11)
[2017-02-28] MEDS: INSULIN REGULAR 100 UNIT/ML SUBCUT SCH ×5 (00:37→20:20)
[2017-02-28] MEDS: MEROPENEM 1,000 MG in SYRINGE 1 EACH IV SCH ×3 (02:21→17:16)
[2017-02-28] MEDS: FUROSEMIDE 20 MG/2 ML VIAL IV SCH ×3 (02:22→12:26)
[2017-02-28] MEDS: METOCLOPRAMIDE 10 MG/2 ML VIAL IV SCH ×3 (03:34→17:16)
[2017-02-28 04:28] LABS: Basophils # 0.1 10*3/uL (0.0-0.2); Basophils % 0.6 % (0.0-0.8); Eosinophils % 8.9 % (0.00-10.9); Hematocrit 28.9 VOL% (35.7-47.0); Hemoglobin 9.8 GM/DL (12.0-16.0); Immature Granulocytes % 0.5 %; Immature Granulocytes Absolute 0.06 #; Lymphocytes # 2.5 10*3/uL (1.4-4.0); Lymphocytes % 21.2 % (21.3-54.2); Mean Corpuscular HGB Conc 33.9 GM/DL (32-36); Mean Corpuscular Hemoglobin 28 PG (27-34); Mean Corpuscular Volume 82.3 FL (87-102); Mean Platelet Volume 12.4 FL (9.6-12.0); Monocytes % 8.5 % (1.7-12.7); Neutrophils % 60.3 % (38.7-73.9); Platelet Count 250 T/CUMM (130-400); Red Blood Count 3.51 MC/CUMM (3.8-5.5); Red Cell Distribution Width 14.5 % (9.3-17.3); White Blood Count 11.6 T/CUMM (4-12)
[2017-02-28 04:54] LABS: Calcium 8.7 MG/DL (8.5-10.1); Magnesium 2.6 MG/DL (1.8-2.4); Osmolality,Calculated 302.6 MOS/KG (273-304); Potassium 3.9 MMOL/L (3.5-5.1)
[2017-02-28] MEDS: POTASSIUM CHLORIDE RIDER 20 MEQ in PREMIX 1 EACH IV PRN (06:14)
[2017-02-28] MEDS: ALBUTEROL/IPRATROPIUM 3 ML NEB RESP TX SCH ×4 (07:44→20:14)
[2017-02-28] MEDS: DOCUSATE SODIUM 100 MG/10 ML UDCUP PO SCH (09:30)
[2017-02-28] MEDS: MONTELUKAST 10 MG TABLET PO SCH (09:31)
[2017-02-28] MEDS: GABAPENTIN 100 MG CAPSULE PO SCH ×3 (09:31→20:42)
[2017-02-28] MEDS: METOPROLOL TARTRATE 25 MG TABLET PO SCH ×2 (09:31→20:43)
[2017-02-28] MEDS: CHLORHEXIDINE 0.12% ORAL RINSE 60 ML BOTTLE SWISH/SPIT SCH ×2 (09:31→20:43)
[2017-02-28] MEDS: APIXABAN 2.5 MG TABLET PO SCH ×2 (09:31→20:43)
[2017-02-28] MEDS: PANTOPRAZOLE 40 MG VIAL IV SCH ×2 (09:31→20:40)
[2017-02-28] MEDS: POTASSIUM CHLORIDE RIDER 10 MEQ in PREMIX 1 EACH IV PRN (10:41)
[2017-02-28] MEDS ORDERED: EPINEPHrine 1 MG/10 ML SYRINGE ONE (14:10)
[2017-02-28] MEDS: MORPHINE 2 MG/1 ML SYRINGE IV PRN (20:50)
[2017-03-01] MEDS: FUROSEMIDE 20 MG/2 ML VIAL IV SCH ×2 (03:09→09:23)
[2017-03-01] MEDS: MEROPENEM 1,000 MG in SYRINGE 1 EACH IV SCH ×3 (03:09→18:30)
[2017-03-01] MEDS: MORPHINE 2 MG/1 ML SYRINGE IV PRN ×2 (03:42→21:15)
[2017-03-01 04:10] LABS: Basophils # 0.1 10*3/uL (0.0-0.2); Basophils % 0.7 % (0.0-0.8); Eosinophils # 1.2 10*3/uL (0.0-0.87); Eosinophils % 10.4 % (0.00-10.9); Hematocrit 27.6 VOL% (35.7-47.0); Hemoglobin 9.7 GM/DL (12.0-16.0); Immature Granulocytes % 0.6 %; Immature Granulocytes Absolute 0.07 #; Lymphocytes # 2.6 10*3/uL (1.4-4.0); Lymphocytes % 22.4 % (21.3-54.2); Mean Corpuscular HGB Conc 35.1 GM/DL (32-36); Mean Corpuscular Hemoglobin 29 PG (27-34); Mean Corpuscular Volume 81.2 FL (87-102); Mean Platelet Volume 12.3 FL (9.6-12.0); Monocytes # 0.8 10*3/uL (0.11-0.8); Monocytes % 6.9 % (1.7-12.7); Neutrophils # 6.8 10*3/uL (1.4-7.4); Platelet Count 251 T/CUMM (130-400); Red Cell Distribution Width 14.2 % (9.3-17.3); White Blood Count 11.4 T/CUMM (4-12)
[2017-03-01 04:28] LABS: Calcium 8.3 MG/DL (8.5-10.1); Magnesium 2.3 MG/DL (1.8-2.4); Potassium 3.7 MMOL/L (3.5-5.1)
[2017-03-01 04:58] LABS: Hypochromasia 1+; Platelet Estimate Normal; Target Cells Few; Tear Drop Cells Few
[2017-03-01 04:59] LABS: Polychromasia Few
[2017-03-01 05:01] LABS: Prealbumin 19.3 MG/DL (20-40)
[2017-03-01] MEDS: POTASSIUM CHLORIDE RIDER 20 MEQ in PREMIX 1 EACH IV PRN (05:18)
[2017-03-01] MEDS: ALBUTEROL/IPRATROPIUM 3 ML NEB RESP TX SCH ×5 (07:40→19:31)
[2017-03-01] MEDS: INSULIN REGULAR 100 UNIT/ML SUBCUT SCH ×4 (08:15→22:25)
[2017-03-01] MEDS: APIXABAN 2.5 MG TABLET PO SCH ×2 (09:23→20:01)
[2017-03-01] MEDS: GABAPENTIN 100 MG CAPSULE PO SCH ×3 (09:23→20:01)
[2017-03-01] MEDS: MONTELUKAST 10 MG TABLET PO SCH (09:23)
[2017-03-01] MEDS: METOPROLOL TARTRATE 25 MG TABLET PO SCH ×2 (09:23→20:01)
[2017-03-01] MEDS: CHLORHEXIDINE 0.12% ORAL RINSE 60 ML BOTTLE SWISH/SPIT SCH ×2 (09:28→20:01)
[2017-03-01] MEDS: PANTOPRAZOLE 40 MG VIAL IV SCH ×2 (09:33→20:01)
[2017-03-01] MEDS ORDERED: LOPERAMIDE 2 MG CAPSULE PO PRN (17:44)
[2017-03-01] MEDS: ONDANSETRON 4 MG/2 ML VIAL IV PRN (19:51)
[2017-03-01] MEDS: CLORAZEPATE 3.75 MG TABLET PO PRN (20:01)
[2017-03-01] MEDS: WHEAT DEXTRIN POWDER 244 GM BOTTLE PO SCH (20:05)
[2017-03-02] MEDS: oxyCODONE/ACETAMINOPHEN 5-325 MG TABLET PO PRN (01:18)
[2017-03-02] MEDS: MEROPENEM 1,000 MG in SYRINGE 1 EACH IV SCH ×3 (01:18→19:42)
[2017-03-02] MEDS: ALBUTEROL/IPRATROPIUM 3 ML NEB RESP TX SCH ×4 (07:27→20:12)
[2017-03-02] MEDS: INSULIN REGULAR 100 UNIT/ML SUBCUT SCH ×4 (08:52→20:33)
[2017-03-02] MEDS: WHEAT DEXTRIN POWDER 244 GM BOTTLE PO SCH ×3 (09:12→20:33)
[2017-03-02] MEDS: PANTOPRAZOLE 40 MG VIAL IV SCH ×2 (09:15→20:31)
[2017-03-02] MEDS: FUROSEMIDE 20 MG/2 ML VIAL IV SCH (09:15)
[2017-03-02] MEDS: METOPROLOL TARTRATE 25 MG TABLET PO SCH ×2 (09:16→20:33)
[2017-03-02] MEDS: MONTELUKAST 10 MG TABLET PO SCH (09:16)
[2017-03-02] MEDS: GABAPENTIN 100 MG CAPSULE PO SCH ×2 (09:16→17:02)
[2017-03-02] MEDS: APIXABAN 2.5 MG TABLET PO SCH ×2 (09:16→20:31)
[2017-03-02] MEDS: CHLORHEXIDINE 0.12% ORAL RINSE 60 ML BOTTLE SWISH/SPIT SCH ×2 (09:29→20:34)
[2017-03-02] MEDS: LACTOBACILLUS ACIDOPHILUS/BULGARICUS CAPLET PO SCH (19:37)
[2017-03-02] MEDS: CLORAZEPATE 3.75 MG TABLET PO PRN (20:30)
[2017-03-02] MEDS: DESITIN 4OZ/NYSTATIN 15 GRAM MIXTURE PASTE TOP SCH (20:34)
[2017-03-02] MEDS ORDERED: HALOPERIDOL 5 MG/ML AMP IM ONE (21:23)
[2017-03-02] MEDS ORDERED: HALOPERIDOL 5 MG/ML AMP IM PRN (22:30)
[2017-03-03] MEDS ORDERED: HALOPERIDOL 5 MG/ML AMP IM PRN (01:00)
[2017-03-03] MEDS: MEROPENEM 1,000 MG in SYRINGE 1 EACH IV SCH ×3 (01:46→21:13)
[2017-03-03 04:14] LABS: Allen Test Positive; Pt O2 Delivery Device Room Air
[2017-03-03 04:15] LABS: ABG Base Excess 3.7 MMOL/L (-2.5-2.5); ABG HCO3 27.6 MMOL/L (20-26); ABG Oxygen Saturation 94.8 % (95-100); ABG PH 7.494 (7.35-7.45); ABG PO2 72.3 MM HG (80-95); ABG TCO2 24.4 MMOL/L (23-27)
[2017-03-03] MEDS: ALBUTEROL/IPRATROPIUM 3 ML NEB RESP TX SCH ×3 (07:45→15:22)
[2017-03-03] MEDS: INSULIN REGULAR 100 UNIT/ML SUBCUT SCH ×2 (08:00→12:34)
[2017-03-03] MEDS: PANTOPRAZOLE 40 MG VIAL IV SCH (08:59)
[2017-03-03] MEDS: CHLORHEXIDINE 0.12% ORAL RINSE 60 ML BOTTLE SWISH/SPIT SCH ×2 (09:00→21:15)
[2017-03-03] MEDS ORDERED: APIXABAN 5 MG TABLET PO SCH (09:00)
[2017-03-03] MEDS: MONTELUKAST 10 MG TABLET PO SCH (09:00)
[2017-03-03] MEDS: APIXABAN 2.5 MG TABLET PO SCH ×2 (09:00→21:13)
[2017-03-03] MEDS: LACTOBACILLUS ACIDOPHILUS/BULGARICUS CAPLET PO SCH (09:00)
[2017-03-03] MEDS: FUROSEMIDE 20 MG/2 ML VIAL IV SCH (09:00)
[2017-03-03] MEDS: METOPROLOL TARTRATE 25 MG TABLET PO SCH ×2 (09:00→21:13)
[2017-03-03] MEDS: DESITIN 4OZ/NYSTATIN 15 GRAM MIXTURE PASTE TOP SCH ×2 (09:01→21:15)
[2017-03-03] MEDS: WHEAT DEXTRIN POWDER 244 GM BOTTLE PO SCH ×3 (09:01→21:15)
[2017-03-03] MEDS ORDERED: ALUMINUM/MAGNES/SIMETH MAX STR 30 ML UDCUP PO PRN (18:15)
[2017-03-03] MEDS ORDERED: GLUCAGON 1 MG VIAL IM PRN (18:15)
[2017-03-03] MEDS ORDERED: MAGNESIUM HYDROXIDE SUSP 30 ML UDCUP PO PRN (18:15)
[2017-03-03] MEDS ORDERED: DEXTROSE 50% 25 GM/50 ML VIAL IV PRN (18:15)
[2017-03-03] MEDS ORDERED: MAGNESIUM SULF RIDER 2 GM in PREMIX 1 EACH IV PRN (18:15)
[2017-03-03] MEDS ORDERED: SODIUM CHLOR 0.45% KCL 20 MEQ 20 MEQ/1,000 ML BAG IV SCH (18:15)
[2017-03-03] MEDS ORDERED: ACETAMINOPHEN 325 MG TABLET PO PRN (18:15)
[2017-03-03] MEDS ORDERED: MAGNESIUM SULF RIDER 4 GM in PREMIX 1 EACH IV PRN (18:15)
[2017-03-03] MEDS: oxyCODONE/ACETAMINOPHEN 5-325 MG TABLET PO PRN (18:47)
[2017-03-03] MEDS: PANTOPRAZOLE 40 MG TABLET PO SCH (21:13)
[2017-03-03] MEDS: CLORAZEPATE 3.75 MG TABLET PO PRN (21:13)
[2017-03-04] MEDS: oxyCODONE/ACETAMINOPHEN 5-325 MG TABLET PO PRN ×2 (04:18→10:56)
[2017-03-04] MEDS: MEROPENEM 1,000 MG in SYRINGE 1 EACH IV SCH ×3 (06:10→21:39)
[2017-03-04 06:30] LABS: Basophils % 0.4 % (0.0-0.8); Eosinophils # 1.2 10*3/uL (0.0-0.87); Eosinophils % 14.6 % (0.00-10.9); Hematocrit 27.1 VOL% (35.7-47.0); Hemoglobin 9.5 GM/DL (12.0-16.0); Immature Granulocytes % 0.6 %; Immature Granulocytes Absolute 0.05 #; Lymphocytes # 1.9 10*3/uL (1.4-4.0); Lymphocytes % 23.3 % (21.3-54.2); Mean Corpuscular HGB Conc 35.1 GM/DL (32-36); Mean Corpuscular Hemoglobin 29 PG (27-34); Mean Corpuscular Volume 81.4 FL (87-102); Mean Platelet Volume 12.7 FL (9.6-12.0); Monocytes # 0.4 10*3/uL (0.11-0.8); Monocytes % 5.4 % (1.7-12.7); Neutrophils # 4.5 10*3/uL (1.4-7.4); Neutrophils % 55.7 % (38.7-73.9); Platelet Count 273 T/CUMM (130-400); Red Blood Count 3.33 MC/CUMM (3.8-5.5); Red Cell Distribution Width 14.4 % (9.3-17.3); White Blood Count 8.1 T/CUMM (4-12)
[2017-03-04 07:04] LABS: Alanine Aminotransferase 44 U/L (13-56); Albumin 2.3 G/DL (3.4-5.0); Alkaline Phosphatase 100 U/L (45-117); Aspartate Amino Transferase 19 U/L (0-37); Bilirubin,Indirect 0.7 MG/DL (0.0-1.0); Blood Urea Nitrogen 16 MG/DL (7-18); Calcium 8.3 MG/DL (8.5-10.1); Glucose 89 MG/DL (74-106); Magnesium 2.1 MG/DL (1.8-2.4); Osmolality,Calculated 280.3 MOS/KG (273-304); Potassium 3.7 MMOL/L (3.5-5.1); Sodium 141 MMOL/L (136-145); Total Protein 5.8 G/DL (6.4-8.3)
[2017-03-04 07:09] LABS: Troponin I Only 0.059 NG/ML (0.00-0.045)
[2017-03-04] MEDS: FUROSEMIDE 40 MG/4 ML VIAL IV ONE ×2 (07:09→19:15)
[2017-03-04 08:00] LABS: Eosinophils 17 % (0-10); Giant Platelets Few; Hypochromasia 1+; Lymphocytes 23 % (20-55); Microcytosis Slight; Ovalocytes Slight; Platelet Estimate Adequate; Segmented Neutrophils 55 % (50-85); Total Cells Counted 100
[2017-03-04] MEDS: DESITIN 4OZ/NYSTATIN 15 GRAM MIXTURE PASTE TOP SCH ×2 (09:50→21:37)
[2017-03-04] MEDS: ASPIRIN EC 325 MG TABLET PO SCH (09:57)
[2017-03-04] MEDS: PANTOPRAZOLE 40 MG TABLET PO SCH ×2 (09:57→21:37)
[2017-03-04] MEDS: LACTOBACILLUS ACIDOPHILUS/BULGARICUS CAPLET PO SCH (09:57)
[2017-03-04] MEDS: CITALOPRAM 40 MG TABLET PO SCH (09:57)
[2017-03-04] MEDS: FERROUS SULFATE 325 MG TABLET PO SCH (09:57)
[2017-03-04] MEDS: DOCUSATE SODIUM 100 MG CAPSULE PO SCH (09:57)
[2017-03-04] MEDS: MONTELUKAST 10 MG TABLET PO SCH (09:57)
[2017-03-04] MEDS: WHEAT DEXTRIN POWDER 244 GM BOTTLE PO SCH ×3 (09:58→21:38)
[2017-03-04] MEDS: FUROSEMIDE 20 MG/2 ML VIAL IV SCH (09:58)
[2017-03-04] MEDS: APIXABAN 2.5 MG TABLET PO SCH ×2 (09:59→21:37)
[2017-03-04] MEDS: METOPROLOL TARTRATE 25 MG TABLET PO SCH ×2 (09:59→21:37)
[2017-03-04] MEDS: CHLORHEXIDINE 0.12% ORAL RINSE 60 ML BOTTLE SWISH/SPIT SCH ×2 (10:11→21:38)
[2017-03-05 06:02] LABS: Basophils % 0.5 % (0.0-0.8); Eosinophils # 1.2 10*3/uL (0.0-0.87); Eosinophils % 17.7 % (0.00-10.9); Hematocrit 29.7 VOL% (35.7-47.0); Hemoglobin 10.2 GM/DL (12.0-16.0); Immature Granulocytes % 0.6 %; Immature Granulocytes Absolute 0.04 #; Lymphocytes # 1.8 10*3/uL (1.4-4.0); Lymphocytes % 27.5 % (21.3-54.2); Mean Corpuscular HGB Conc 34.3 GM/DL (32-36); Mean Corpuscular Hemoglobin 28 PG (27-34); Mean Corpuscular Volume 81.8 FL (87-102); Mean Platelet Volume 12.1 FL (9.6-12.0); Monocytes # 0.5 10*3/uL (0.11-0.8); Monocytes % 7.2 % (1.7-12.7); Neutrophils # 3.1 10*3/uL (1.4-7.4); Neutrophils % 46.5 % (38.7-73.9); Platelet Count 295 T/CUMM (130-400); Red Blood Count 3.63 MC/CUMM (3.8-5.5); Red Cell Distribution Width 14.2 % (9.3-17.3); White Blood Count 6.6 T/CUMM (4-12)
[2017-03-05] MEDS: MEROPENEM 1,000 MG in SYRINGE 1 EACH IV SCH ×3 (06:24→22:02)
[2017-03-05 06:41] LABS: Alanine Aminotransferase 41 U/L (13-56); Albumin 2.6 G/DL (3.4-5.0); Alkaline Phosphatase 113 U/L (45-117); Aspartate Amino Transferase 20 U/L (0-37); Bilirubin,Indirect 0.4 MG/DL (0.0-1.0); Blood Urea Nitrogen 12 MG/DL (7-18); Calcium 8.3 MG/DL (8.5-10.1); Glucose 92 MG/DL (74-106); Magnesium 1.9 MG/DL (1.8-2.4); Osmolality,Calculated 280.3 MOS/KG (273-304); Potassium 3.5 MMOL/L (3.5-5.1); Sodium 141 MMOL/L (136-145); Total Protein 6.3 G/DL (6.4-8.3); Troponin I Only 0.048 NG/ML (0.00-0.045)
[2017-03-05 06:54] LABS: Band Neutrophils 1 % (0-10); Eosinophils 11 % (0-10); Hypochromasia 1+; Lymphocytes 24 % (20-55); Segmented Neutrophils 54 % (50-85); Total Cells Counted 100
[2017-03-05] MEDS: LACTOBACILLUS ACIDOPHILUS/BULGARICUS CAPLET PO SCH (09:05)
[2017-03-05] MEDS: DOCUSATE SODIUM 100 MG CAPSULE PO SCH (09:05)
[2017-03-05] MEDS: CITALOPRAM 40 MG TABLET PO SCH (09:05)
[2017-03-05] MEDS: MONTELUKAST 10 MG TABLET PO SCH (09:06)
[2017-03-05] MEDS: FERROUS SULFATE 325 MG TABLET PO SCH (09:06)
[2017-03-05] MEDS: ASPIRIN EC 325 MG TABLET PO SCH (09:06)
[2017-03-05] MEDS: FUROSEMIDE 20 MG/2 ML VIAL IV SCH (09:06)
[2017-03-05] MEDS: METOPROLOL TARTRATE 25 MG TABLET PO SCH ×2 (09:06→22:02)
[2017-03-05] MEDS: oxyCODONE/ACETAMINOPHEN 5-325 MG TABLET PO PRN ×2 (09:06→22:01)
[2017-03-05] MEDS: APIXABAN 2.5 MG TABLET PO SCH ×2 (09:06→22:02)
[2017-03-05] MEDS: PANTOPRAZOLE 40 MG TABLET PO SCH ×2 (09:06→22:01)
[2017-03-05] MEDS: WHEAT DEXTRIN POWDER 244 GM BOTTLE PO SCH ×3 (09:07→22:10)
[2017-03-05] MEDS: CHLORHEXIDINE 0.12% ORAL RINSE 60 ML BOTTLE SWISH/SPIT SCH ×2 (09:07→22:04)
[2017-03-05] MEDS: DESITIN 4OZ/NYSTATIN 15 GRAM MIXTURE PASTE TOP SCH ×2 (09:07→22:06)
[2017-03-05] MEDS: ZALEPLON 5 MG CAPSULE PO PRN (22:01)
[2017-03-06] MEDS: MEROPENEM 1,000 MG in SYRINGE 1 EACH IV SCH ×3 (05:55→22:01)
[2017-03-06] MEDS: MONTELUKAST 10 MG TABLET PO SCH (09:33)
[2017-03-06] MEDS: DOCUSATE SODIUM 100 MG CAPSULE PO SCH (09:33)
[2017-03-06] MEDS: FUROSEMIDE 20 MG/2 ML VIAL IV SCH (09:33)
[2017-03-06] MEDS: ASPIRIN EC 325 MG TABLET PO SCH (09:33)
[2017-03-06] MEDS: PANTOPRAZOLE 40 MG TABLET PO SCH ×2 (09:34→22:01)
[2017-03-06] MEDS: METOPROLOL TARTRATE 25 MG TABLET PO SCH ×2 (09:34→22:01)
[2017-03-06] MEDS: CITALOPRAM 40 MG TABLET PO SCH (09:34)
[2017-03-06] MEDS: LACTOBACILLUS ACIDOPHILUS/BULGARICUS CAPLET PO SCH (09:34)
[2017-03-06] MEDS: APIXABAN 2.5 MG TABLET PO SCH ×2 (09:34→22:01)
[2017-03-06] MEDS: WHEAT DEXTRIN POWDER 244 GM BOTTLE PO SCH ×3 (09:34→22:02)
[2017-03-06] MEDS: FERROUS SULFATE 325 MG TABLET PO SCH (09:34)
[2017-03-06] MEDS: DESITIN 4OZ/NYSTATIN 15 GRAM MIXTURE PASTE TOP SCH ×2 (09:34→22:02)
[2017-03-06] MEDS: CHLORHEXIDINE 0.12% ORAL RINSE 60 ML BOTTLE SWISH/SPIT SCH ×2 (10:00→22:02)
[2017-03-06] MEDS: ZALEPLON 5 MG CAPSULE PO PRN (22:01)
[2017-03-06] MEDS: CLORAZEPATE 3.75 MG TABLET PO PRN (22:01)
[2017-03-07] MEDS: MEROPENEM 1,000 MG in SYRINGE 1 EACH IV SCH ×3 (04:17→22:19)
[2017-03-07 06:07] LABS: INR 1.1; PT Patient Result 11.7 SECS; Partial Thromboplastin Time 29.2 SECS (0-40)
[2017-03-07 06:17] LABS: Basophils % 0.5 % (0.0-0.8); Eosinophils # 0.9 10*3/uL (0.0-0.87); Eosinophils % 14.1 % (0.00-10.9); Hematocrit 28.5 VOL% (35.7-47.0); Hemoglobin 10.1 GM/DL (12.0-16.0); Immature Granulocytes % 0.9 %; Immature Granulocytes Absolute 0.06 #; Lymphocytes # 2.3 10*3/uL (1.4-4.0); Lymphocytes % 34.8 % (21.3-54.2); Mean Corpuscular HGB Conc 35.4 GM/DL (32-36); Mean Corpuscular Hemoglobin 29 PG (27-34); Mean Corpuscular Volume 82.4 FL (87-102); Mean Platelet Volume 11.9 FL (9.6-12.0); Monocytes # 0.5 10*3/uL (0.11-0.8); Monocytes % 7.1 % (1.7-12.7); Neutrophils # 2.8 10*3/uL (1.4-7.4); Neutrophils % 42.6 % (38.7-73.9); Platelet Count 313 T/CUMM (130-400); Red Blood Count 3.46 MC/CUMM (3.8-5.5); Red Cell Distribution Width 14.2 % (9.3-17.3); White Blood Count 6.6 T/CUMM (4-12)
[2017-03-07 06:20] LABS: Calcium 8.4 MG/DL (8.5-10.1); Magnesium 1.8 MG/DL (1.8-2.4); Osmolality,Calculated 278.3 MOS/KG (273-304); Potassium 3.4 MMOL/L (3.5-5.1)
[2017-03-07 06:27] LABS: Alanine Aminotransferase 35 U/L (13-56); Albumin 2.5 G/DL (3.4-5.0); Alkaline Phosphatase 108 U/L (45-117); Aspartate Amino Transferase 22 U/L (0-37); Bilirubin,Indirect 0.9 MG/DL (0.0-1.0); Blood Urea Nitrogen 12 MG/DL (7-18); Calcium 8.4 MG/DL (8.5-10.1); Glucose 80 MG/DL (74-106); Osmolality,Calculated 277.4 MOS/KG (273-304); Potassium 3.4 MMOL/L (3.5-5.1); Sodium 140 MMOL/L (136-145); Total Protein 6.1 G/DL (6.4-8.3); Troponin I Only 0.041 NG/ML (0.00-0.045)
[2017-03-07 08:21] LABS: Eosinophils 6 % (0-10); Hypochromasia 2+; Lymphocytes 30 % (20-55); Platelet Estimate Adequate; Polychromasia Slight; Segmented Neutrophils 58 % (50-85); Target Cells Slight; Total Cells Counted 100
[2017-03-07] MEDS: METOPROLOL TARTRATE 25 MG TABLET PO SCH ×2 (10:18→22:18)
[2017-03-07] MEDS: MONTELUKAST 10 MG TABLET PO SCH (10:18)
[2017-03-07] MEDS: ASPIRIN EC 325 MG TABLET PO SCH (10:18)
[2017-03-07] MEDS: APIXABAN 2.5 MG TABLET PO SCH ×2 (10:18→22:18)
[2017-03-07] MEDS: DOCUSATE SODIUM 100 MG CAPSULE PO SCH (10:18)
[2017-03-07] MEDS: PANTOPRAZOLE 40 MG TABLET PO SCH ×2 (10:18→22:18)
[2017-03-07] MEDS: FUROSEMIDE 20 MG/2 ML VIAL IV SCH (10:18)
[2017-03-07] MEDS: LACTOBACILLUS ACIDOPHILUS/BULGARICUS CAPLET PO SCH (10:19)
[2017-03-07] MEDS: CITALOPRAM 40 MG TABLET PO SCH (10:19)
[2017-03-07] MEDS: DESITIN 4OZ/NYSTATIN 15 GRAM MIXTURE PASTE TOP SCH ×2 (10:19→22:29)
[2017-03-07] MEDS: CHLORHEXIDINE 0.12% ORAL RINSE 60 ML BOTTLE SWISH/SPIT SCH ×2 (10:19→22:28)
[2017-03-07] MEDS: FERROUS SULFATE 325 MG TABLET PO SCH (10:19)
[2017-03-07] MEDS: WHEAT DEXTRIN POWDER 244 GM BOTTLE PO SCH ×3 (10:19→22:18)
[2017-03-07] MEDS: POTASSIUM CHLORIDE 20 MEQ TABLET PO PRN ×2 (10:20→13:30)
[2017-03-08 05:41] LABS: Basophils # 0.1 10*3/uL (0.0-0.2); Basophils % 0.6 % (0.0-0.8); Eosinophils # 0.9 10*3/uL (0.0-0.87); Hematocrit 29.6 VOL% (35.7-47.0); Hemoglobin 10.5 GM/DL (12.0-16.0); Immature Granulocytes % 0.6 %; Immature Granulocytes Absolute 0.05 #; Lymphocytes % 38.6 % (21.3-54.2); Mean Corpuscular HGB Conc 35.5 GM/DL (32-36); Mean Corpuscular Hemoglobin 29 PG (27-34); Mean Corpuscular Volume 81.3 FL (87-102); Mean Platelet Volume 12.2 FL (9.6-12.0); Monocytes # 0.6 10*3/uL (0.11-0.8); Monocytes % 7.5 % (1.7-12.7); Neutrophils # 3.1 10*3/uL (1.4-7.4); Neutrophils % 40.7 % (38.7-73.9); Platelet Count 301 T/CUMM (130-400); Red Blood Count 3.64 MC/CUMM (3.8-5.5); Red Cell Distribution Width 14.1 % (9.3-17.3); White Blood Count 7.7 T/CUMM (4-12)
[2017-03-08 06:08] LABS: Band Neutrophils 1 % (0-10); Eosinophils 14 % (0-10); Giant Platelets Few; Hypochromasia 1+; Lymphocytes 32 % (20-55); Ovalocytes Slight; Platelet Estimate Adequate; Segmented Neutrophils 47 % (50-85); Total Cells Counted 100
[2017-03-08] MEDS: MEROPENEM 1,000 MG in SYRINGE 1 EACH IV SCH ×3 (06:12→22:39)
[2017-03-08 07:06] LABS: Potassium 3.8 MMOL/L (3.5-5.1); Sodium 141 MMOL/L (136-145)
[2017-03-08 07:09] LABS: Calcium 8.4 MG/DL (8.5-10.1)
[2017-03-08 07:10] LABS: Albumin 2.6 G/DL (3.4-5.0); Blood Urea Nitrogen 10 MG/DL (7-18); Glucose 79 MG/DL (74-106); Magnesium 1.8 MG/DL (1.8-2.4); Osmolality,Calculated 278.3 MOS/KG (273-304)
[2017-03-08 07:14] LABS: Alanine Aminotransferase 32 U/L (13-56); Aspartate Amino Transferase 18 U/L (0-37)
[2017-03-08 07:15] LABS: Bilirubin,Indirect 0.6 MG/DL (0.0-1.0); Total Protein 6.3 G/DL (6.4-8.3)
[2017-03-08 07:17] LABS: Alkaline Phosphatase 114 U/L (45-117)
[2017-03-08 07:40] LABS: Troponin I Only 0.039 NG/ML (0.00-0.045)
[2017-03-08] MEDS: PANTOPRAZOLE 40 MG TABLET PO SCH ×2 (10:25→22:39)
[2017-03-08] MEDS: METOPROLOL TARTRATE 25 MG TABLET PO SCH ×2 (10:25→22:39)
[2017-03-08] MEDS: CHLORHEXIDINE 0.12% ORAL RINSE 60 ML BOTTLE SWISH/SPIT SCH ×2 (10:25→22:40)
[2017-03-08] MEDS: WHEAT DEXTRIN POWDER 244 GM BOTTLE PO SCH ×3 (10:25→22:40)
[2017-03-08] MEDS: APIXABAN 2.5 MG TABLET PO SCH ×2 (10:25→22:39)
[2017-03-08] MEDS ORDERED: BUPIVACAINE 0.25% 50 ML VIAL ONE (11:29)
[2017-03-08] MEDS: LACTATED RINGERS 1,000 ML IV SCH (11:37)
[2017-03-08] MEDS ORDERED: fentaNYL 100 MCG/2 ML VIAL ONE (12:21)
[2017-03-08] MEDS ORDERED: PROPOFOL 500 MG/50 ML BOTTLE IV ONE (12:21)
[2017-03-08] MEDS: MONTELUKAST 10 MG TABLET PO SCH (17:08)
[2017-03-08] MEDS: FERROUS SULFATE 325 MG TABLET PO SCH (17:08)
[2017-03-08] MEDS: LACTOBACILLUS ACIDOPHILUS/BULGARICUS CAPLET PO SCH (17:08)
[2017-03-08] MEDS: ASPIRIN EC 325 MG TABLET PO SCH (17:08)
[2017-03-08] MEDS: DOCUSATE SODIUM 100 MG CAPSULE PO SCH (17:09)
[2017-03-08] MEDS: CITALOPRAM 40 MG TABLET PO SCH (17:09)
[2017-03-08] MEDS: FUROSEMIDE 20 MG/2 ML VIAL IV SCH (17:13)
[2017-03-08] MEDS: oxyCODONE/ACETAMINOPHEN 5-325 MG TABLET PO PRN (19:37)
[2017-03-08] MEDS: COLLAGENASE OINT 30 GM TUBE TOP SCH (19:38)
[2017-03-08] MEDS: DESITIN 4OZ/NYSTATIN 15 GRAM MIXTURE PASTE TOP SCH ×2 (19:40→22:40)
[2017-03-09] MEDS: MEROPENEM 1,000 MG in SYRINGE 1 EACH IV SCH ×2 (05:50→16:51)
[2017-03-09] MEDS: CITALOPRAM 40 MG TABLET PO SCH (10:30)
[2017-03-09] MEDS: DOCUSATE SODIUM 100 MG CAPSULE PO SCH (10:31)
[2017-03-09] MEDS: METOPROLOL TARTRATE 25 MG TABLET PO SCH ×2 (10:31→21:58)
[2017-03-09] MEDS: LACTOBACILLUS ACIDOPHILUS/BULGARICUS CAPLET PO SCH (10:31)
[2017-03-09] MEDS: PANTOPRAZOLE 40 MG TABLET PO SCH ×2 (10:32→21:58)
[2017-03-09] MEDS: MONTELUKAST 10 MG TABLET PO SCH (10:32)
[2017-03-09] MEDS: FERROUS SULFATE 325 MG TABLET PO SCH (10:32)
[2017-03-09] MEDS: ASPIRIN EC 325 MG TABLET PO SCH (10:32)
[2017-03-09] MEDS: APIXABAN 2.5 MG TABLET PO SCH ×2 (10:33→21:58)
[2017-03-09] MEDS: WHEAT DEXTRIN POWDER 244 GM BOTTLE PO SCH ×3 (10:34→21:56)
[2017-03-09] MEDS: COLLAGENASE OINT 30 GM TUBE TOP SCH (15:40)
[2017-03-09] MEDS: DESITIN 4OZ/NYSTATIN 15 GRAM MIXTURE PASTE TOP SCH (15:50)
[2017-03-09] MEDS: FUROSEMIDE 20 MG TABLET PO SCH (16:51)
[2017-03-09] MEDS: CHLORHEXIDINE 0.12% ORAL RINSE 60 ML BOTTLE SWISH/SPIT SCH ×2 (21:57→21:59)
[2017-03-09] MEDS: DESITIN 4OZ/NYSTATIN 15 GRAM MIXTURE PASTE TOP PRN (21:57)
[2017-03-09] MEDS: ONDANSETRON 4 MG/2 ML VIAL IV PRN (23:06)
[2017-03-10] MEDS: LACTOBACILLUS ACIDOPHILUS/BULGARICUS CAPLET PO SCH (09:09)
[2017-03-10] MEDS: FERROUS SULFATE 325 MG TABLET PO SCH (09:09)
[2017-03-10] MEDS: CITALOPRAM 40 MG TABLET PO SCH (09:09)
[2017-03-10] MEDS: PANTOPRAZOLE 40 MG TABLET PO SCH ×2 (09:10→21:20)
[2017-03-10] MEDS: FUROSEMIDE 20 MG TABLET PO SCH (09:10)
[2017-03-10] MEDS: CHLORHEXIDINE 0.12% ORAL RINSE 60 ML BOTTLE SWISH/SPIT SCH ×2 (09:10→21:20)
[2017-03-10] MEDS: MONTELUKAST 10 MG TABLET PO SCH (09:10)
[2017-03-10] MEDS: DESITIN 4OZ/NYSTATIN 15 GRAM MIXTURE PASTE TOP PRN ×2 (09:10→21:21)
[2017-03-10] MEDS: METOPROLOL TARTRATE 25 MG TABLET PO SCH ×2 (09:10→21:20)
[2017-03-10] MEDS: APIXABAN 2.5 MG TABLET PO SCH ×2 (09:10→21:20)
[2017-03-10] MEDS: ASPIRIN EC 325 MG TABLET PO SCH (09:10)
[2017-03-10] MEDS: COLLAGENASE OINT 30 GM TUBE TOP SCH (09:11)
[2017-03-10] MEDS: WHEAT DEXTRIN POWDER 244 GM BOTTLE PO SCH ×3 (09:11→21:21)
[2017-03-10] MEDS: DOCUSATE SODIUM 100 MG CAPSULE PO SCH (09:12)
[2017-03-10] MEDS: ONDANSETRON 4 MG/2 ML VIAL IV PRN (10:53)
[2017-03-10] MEDS: LACTATED RINGERS 1,000 ML IV SCH (14:11)
[2017-03-10] MEDS: ZALEPLON 5 MG CAPSULE PO PRN (21:20)
[2017-03-11] MEDS: PANTOPRAZOLE 40 MG TABLET PO SCH ×2 (09:30→21:02)
[2017-03-11] MEDS: FUROSEMIDE 20 MG TABLET PO SCH (09:30)
[2017-03-11] MEDS: DOCUSATE SODIUM 100 MG CAPSULE PO SCH (09:30)
[2017-03-11] MEDS: APIXABAN 2.5 MG TABLET PO SCH ×2 (09:30→21:02)
[2017-03-11] MEDS: FERROUS SULFATE 325 MG TABLET PO SCH (09:30)
[2017-03-11] MEDS: MONTELUKAST 10 MG TABLET PO SCH (09:30)
[2017-03-11] MEDS: ASPIRIN EC 325 MG TABLET PO SCH (09:30)
[2017-03-11] MEDS: METOPROLOL TARTRATE 25 MG TABLET PO SCH ×2 (09:30→21:02)
[2017-03-11] MEDS: LACTOBACILLUS ACIDOPHILUS/BULGARICUS CAPLET PO SCH (09:30)
[2017-03-11] MEDS: CITALOPRAM 40 MG TABLET PO SCH (09:30)
[2017-03-11] MEDS: COLLAGENASE OINT 30 GM TUBE TOP SCH (09:31)
[2017-03-11] MEDS: DESITIN 4OZ/NYSTATIN 15 GRAM MIXTURE PASTE TOP PRN (09:31)
[2017-03-11] MEDS: WHEAT DEXTRIN POWDER 244 GM BOTTLE PO SCH ×3 (09:31→21:03)
[2017-03-11] MEDS: CHLORHEXIDINE 0.12% ORAL RINSE 60 ML BOTTLE SWISH/SPIT SCH ×2 (09:31→21:03)
[2017-03-11] MEDS: LACTATED RINGERS 1,000 ML IV SCH (15:53)
[2017-03-11] MEDS: ZALEPLON 5 MG CAPSULE PO PRN (21:02)
[2017-03-12] MEDS: MONTELUKAST 10 MG TABLET PO SCH (10:38)
[2017-03-12] MEDS: ASPIRIN EC 325 MG TABLET PO SCH (10:38)
[2017-03-12] MEDS: FERROUS SULFATE 325 MG TABLET PO SCH (10:38)
[2017-03-12] MEDS: FUROSEMIDE 20 MG TABLET PO SCH (10:38)
[2017-03-12] MEDS: CITALOPRAM 40 MG TABLET PO SCH (10:38)
[2017-03-12] MEDS: PANTOPRAZOLE 40 MG TABLET PO SCH ×2 (10:38→20:52)
[2017-03-12] MEDS: LACTOBACILLUS ACIDOPHILUS/BULGARICUS CAPLET PO SCH (10:39)
[2017-03-12] MEDS: METOPROLOL TARTRATE 25 MG TABLET PO SCH ×2 (10:39→20:52)
[2017-03-12] MEDS: APIXABAN 2.5 MG TABLET PO SCH ×2 (10:39→20:52)
[2017-03-12] MEDS: WHEAT DEXTRIN POWDER 244 GM BOTTLE PO SCH ×3 (10:40→20:52)
[2017-03-12] MEDS: DOCUSATE SODIUM 100 MG CAPSULE PO SCH (10:40)
[2017-03-12] MEDS: CHLORHEXIDINE 0.12% ORAL RINSE 60 ML BOTTLE SWISH/SPIT SCH ×2 (10:40→20:51)
[2017-03-12] MEDS: COLLAGENASE OINT 30 GM TUBE TOP SCH (10:44)
[2017-03-12] MEDS: DESITIN 4OZ/NYSTATIN 15 GRAM MIXTURE PASTE TOP PRN (20:51)
[2017-03-13] MEDS: COLLAGENASE OINT 30 GM TUBE TOP SCH (10:28)
[2017-03-13] MEDS: LACTOBACILLUS ACIDOPHILUS/BULGARICUS CAPLET PO SCH (10:36)
[2017-03-13] MEDS: FUROSEMIDE 20 MG TABLET PO SCH (10:37)
[2017-03-13] MEDS: FERROUS SULFATE 325 MG TABLET PO SCH (10:37)
[2017-03-13] MEDS: PANTOPRAZOLE 40 MG TABLET PO SCH (10:37)
[2017-03-13] MEDS: APIXABAN 2.5 MG TABLET PO SCH (10:37)
[2017-03-13] MEDS: CITALOPRAM 40 MG TABLET PO SCH (10:37)
[2017-03-13] MEDS: MONTELUKAST 10 MG TABLET PO SCH (10:38)
[2017-03-13] MEDS: METOPROLOL TARTRATE 25 MG TABLET PO SCH (10:38)
[2017-03-13] MEDS: DOCUSATE SODIUM 100 MG CAPSULE PO SCH (10:38)
[2017-03-13] MEDS: ASPIRIN EC 325 MG TABLET PO SCH (10:38)
[2017-03-13] MEDS: WHEAT DEXTRIN POWDER 244 GM BOTTLE PO SCH (10:39)
[2017-03-13 14:12] VITALS: BP 128/84
== END 2017-03-13 10:52 | disposition home health service (06) | DRG 235 ==
LOC: SUPCPDRO 17:55 → N.TELEN 17:55 → N.CVR 02-04 10:53 → N.ICU 02-05 12:10 → N.TELES 03-03 15:03
PROVIDERS: ATTEND Surgery

== ENCOUNTER 2017-05-12 00:56 | Inpatient (IN) ==
[2017-05-12] MEDS ORDERED: DOPamine 800 MG/250 ML PREMIX IV ONE (01:20)
[2017-05-12] MEDS ORDERED: NITROGLYCERIN 2% OINT 1 INCH/GM PACK TOP STA (02:59)
[2017-05-12] MEDS ORDERED: ONDANSETRON 4 MG/2 ML VIAL IV STA (02:59)
[2017-05-12] MEDS ORDERED: MORPHINE 2 MG/1 ML SYRINGE IV STA (02:59)
[2017-05-12] MEDS ORDERED: ASPIRIN 325 MG TABLET PO STA (02:59)
[2017-05-12] MEDS ORDERED: ASPIRIN 325 MG TABLET ONE (03:11)
[2017-05-12] MEDS ORDERED: NITROGLYCERIN 2% OINT 1 INCH/GM PACK TOP ONE (03:11)
[2017-05-12] MEDS ORDERED: ONDANSETRON 4 MG/2 ML VIAL ONE (03:11)
[2017-05-12] MEDS ORDERED: MORPHINE 2 MG/1 ML SYRINGE ONE (03:11)
[2017-05-12 03:34] LABS: Basophils % 0.2 % (0.0-0.8); Eosinophils % 0.1 % (0.00-10.9); Hematocrit 36.5 VOL% (35.7-47.0); Hemoglobin 12.7 GM/DL (12.0-16.0); Immature Granulocytes % 0.5 %; Immature Granulocytes Absolute 0.07 #; Lymphocytes # 2.7 10*3/uL (1.4-4.0); Lymphocytes % 18.7 % (21.3-54.2); Mean Corpuscular HGB Conc 34.8 GM/DL (32-36); Mean Corpuscular Hemoglobin 27 PG (27-34); Mean Corpuscular Volume 77.3 FL (87-102); Mean Platelet Volume 11.8 FL (9.6-12.0); Monocytes # 0.9 10*3/uL (0.11-0.8); Monocytes % 5.9 % (1.7-12.7); Neutrophils # 10.8 10*3/uL (1.4-7.4); Neutrophils % 74.6 % (38.7-73.9); Platelet Count 241 T/CUMM (130-400); Red Blood Count 4.72 MC/CUMM (3.8-5.5); Red Cell Distribution Width 14.9 % (9.3-17.3); White Blood Count 14.5 T/CUMM (4-12)
[2017-05-12 03:58] LABS: Albumin 3.4 G/DL (3.4-5.0); Bilirubin,Total 0.5 MG/DL (0.2-1.0); Calcium 8.9 MG/DL (8.5-10.1); Osmolality,Calculated 277.4 MOS/KG (273-304); Potassium 3.5 MMOL/L (3.5-5.1); Total Protein 7.3 G/DL (6.4-8.3)
[2017-05-12] MEDS ORDERED: ONDANSETRON 4 MG/2 ML VIAL IV PRN (05:00)
[2017-05-12] MEDS ORDERED: ACETAMINOPHEN 325 MG TABLET PO PRN (05:00)
[2017-05-12] MEDS ORDERED: NITROGLYCERIN SL 0.4 MG TABLET SL PRN (05:38)
[2017-05-12] MEDS ORDERED: METOCLOPRAMIDE 10 MG TABLET PO PRN (05:54)
[2017-05-12] MEDS: ENOXAPARIN 40 MG/0.4 ML SYRINGE SUBCUT SCH (06:09)
[2017-05-12] MEDS ORDERED: FUROSEMIDE 20 MG TABLET PO SCH (09:00)
[2017-05-12] MEDS ORDERED: METOPROLOL TARTRATE 25 MG TABLET PO SCH (09:00)
[2017-05-12] MEDS: PANTOPRAZOLE 40 MG TABLET PO SCH (09:45)
[2017-05-12] MEDS: ASPIRIN EC 325 MG TABLET PO SCH (09:45)
[2017-05-12] MEDS ORDERED: ASPIRIN EC 325 MG TABLET PO ONE (10:02)
[2017-05-12] MEDS ORDERED: METOPROLOL TARTRATE 25 MG TABLET ONE (10:02)
[2017-05-12] MEDS ORDERED: FUROSEMIDE 20 MG TABLET ONE (10:02)
[2017-05-12] MEDS ORDERED: PANTOPRAZOLE 40 MG TABLET PO ONE (10:03)
[2017-05-12] MEDS: CITALOPRAM 40 MG TABLET PO SCH (11:15)
[2017-05-12] MEDS: CARVEDILOL 3.125 MG TABLET PO SCH ×2 (14:48→15:01)
[2017-05-12] MEDS: LISINOPRIL 10 MG TABLET PO SCH ×2 (14:48→15:01)
[2017-05-12] MEDS: MORPHINE 2 MG/1 ML SYRINGE IV PRN ×2 (15:04→21:23)
[2017-05-12] MEDS ORDERED: PNEUMOCOCCAL VACCINE (13 VALENT) 0.5 ML SYRINGE IM ONE (15:11)
[2017-05-12] MEDS ORDERED: INFLUENZA VIRUS VACCINE 0.5 ML SYRINGE IM ONE (15:11)
[2017-05-12] MEDS ORDERED: KETOROLAC 30 MG/1 ML VIAL IV PRN (15:18)
[2017-05-12] MEDS ORDERED: oxyCODONE/ACETAMINOPHEN 5-325 MG TABLET PO PRN (15:43)
[2017-05-12] MEDS ORDERED: FUROSEMIDE 40 MG/4 ML VIAL IV ONE (15:50)
[2017-05-12] MEDS: CARVEDILOL 6.25 MG TABLET PO SCH ×2 (17:03→21:23)
[2017-05-12] MEDS: LISINOPRIL 5 MG TABLET PO SCH (21:23)
[2017-05-13] MEDS: ZALEPLON 5 MG CAPSULE PO PRN ×2 (00:20→21:10)
[2017-05-13 04:55] LABS: Basophils # 0.1 10*3/uL (0.0-0.2); Basophils % 0.4 % (0.0-0.8); Eosinophils # 0.1 10*3/uL (0.0-0.87); Eosinophils % 0.6 % (0.00-10.9); Hemoglobin 11.3 GM/DL (12.0-16.0); Immature Granulocytes % 0.8 %; Immature Granulocytes Absolute 0.11 #; Lymphocytes # 3.6 10*3/uL (1.4-4.0); Lymphocytes % 25.4 % (21.3-54.2); Mean Corpuscular HGB Conc 34.2 GM/DL (32-36); Mean Corpuscular Hemoglobin 27 PG (27-34); Mean Corpuscular Volume 78.4 FL (87-102); Mean Platelet Volume 12.6 FL (9.6-12.0); Monocytes # 1.2 10*3/uL (0.11-0.8); Monocytes % 8.3 % (1.7-12.7); Neutrophils # 9.1 10*3/uL (1.4-7.4); Neutrophils % 64.5 % (38.7-73.9); Platelet Count 207 T/CUMM (130-400); Red Blood Count 4.21 MC/CUMM (3.8-5.5); White Blood Count 14.2 T/CUMM (4-12)
[2017-05-13] MEDS: ENOXAPARIN 40 MG/0.4 ML SYRINGE SUBCUT SCH (05:02)
[2017-05-13 05:32] LABS: Calcium 8.3 MG/DL (8.5-10.1); Osmolality,Calculated 277.5 MOS/KG (273-304); Potassium 3.3 MMOL/L (3.5-5.1); Risk Ratio 2.53
[2017-05-13 05:38] LABS: Calcium 8.3 MG/DL (8.5-10.1); Magnesium 1.8 MG/DL (1.8-2.4); Osmolality,Calculated 276.5 MOS/KG (273-304); Potassium 3.3 MMOL/L (3.5-5.1)
[2017-05-13] MEDS: ASPIRIN EC 325 MG TABLET PO SCH (09:41)
[2017-05-13] MEDS: PANTOPRAZOLE 40 MG TABLET PO SCH (09:41)
[2017-05-13] MEDS: CARVEDILOL 6.25 MG TABLET PO SCH ×2 (09:41→21:10)
[2017-05-13] MEDS: CITALOPRAM 40 MG TABLET PO SCH (09:41)
[2017-05-13] MEDS: LISINOPRIL 5 MG TABLET PO SCH ×2 (09:41→21:10)
[2017-05-13] MEDS ORDERED: POTASSIUM CHLORIDE 20 MEQ TABLET PO ONE (10:30)
[2017-05-13] MEDS ORDERED: RACEPINEPHRINE 0.5 ML NEB RESP TX ONE (10:31)
[2017-05-13] MEDS: methylPREDNISolone SOD SUC 40 MG/1 ML VIAL IV SCH ×2 (11:45→21:11)
[2017-05-13] MEDS ORDERED: MAGNESIUM HYDROXIDE SUSP 30 ML UDCUP PO PRN (15:46)
[2017-05-13] MEDS: ALBUTEROL 2.5 MG/3 ML NEB RESP TX PRN (19:50)
[2017-05-13] MEDS: ROSUVASTATIN 20 MG TABLET PO SCH (21:10)
[2017-05-14] MEDS: methylPREDNISolone SOD SUC 40 MG/1 ML VIAL IV SCH ×3 (03:02→20:52)
[2017-05-14 05:15] LABS: Basophils % 0.1 % (0.0-0.8); Hemoglobin 12.4 GM/DL (12.0-16.0); Immature Granulocytes % 0.5 %; Immature Granulocytes Absolute 0.06 #; Lymphocytes # 1.1 10*3/uL (1.4-4.0); Lymphocytes % 9.5 % (21.3-54.2); Mean Corpuscular HGB Conc 35.4 GM/DL (32-36); Mean Corpuscular Hemoglobin 27 PG (27-34); Mean Corpuscular Volume 77.1 FL (87-102); Mean Platelet Volume 13.9 FL (9.6-12.0); Monocytes # 0.3 10*3/uL (0.11-0.8); Monocytes % 2.3 % (1.7-12.7); NRBC # 0.05 10*3/uL; Neutrophils # 9.9 10*3/uL (1.4-7.4); Neutrophils % 87.6 % (38.7-73.9); Platelet Count 208 T/CUMM (130-400); Red Blood Count 4.54 MC/CUMM (3.8-5.5); Red Cell Distribution Width 15.1 % (9.3-17.3); White Blood Count 11.3 T/CUMM (4-12)
[2017-05-14] MEDS: ENOXAPARIN 40 MG/0.4 ML SYRINGE SUBCUT SCH (05:26)
[2017-05-14 05:43] LABS: Calcium 9.2 MG/DL (8.5-10.1); Magnesium 2.2 MG/DL (1.8-2.4); Osmolality,Calculated 281.5 MOS/KG (273-304); Potassium 4.6 MMOL/L (3.5-5.1)
[2017-05-14] MEDS: ASPIRIN EC 325 MG TABLET PO SCH (09:59)
[2017-05-14] MEDS: CARVEDILOL 6.25 MG TABLET PO SCH ×2 (09:59→20:52)
[2017-05-14] MEDS: LISINOPRIL 5 MG TABLET PO SCH ×2 (09:59→20:52)
[2017-05-14] MEDS: PANTOPRAZOLE 40 MG TABLET PO SCH (09:59)
[2017-05-14] MEDS: CITALOPRAM 40 MG TABLET PO SCH (09:59)
[2017-05-14] MEDS: ROSUVASTATIN 20 MG TABLET PO SCH (20:52)
[2017-05-14] MEDS: ALBUTEROL 2.5 MG/3 ML NEB RESP TX PRN (21:44)
[2017-05-14 23:12] LABS: Apearance,Urine Slightly Hazy (Clear); Bilirubin,Urine Negative (Negative); Blood, Urine Negative (Negative); Calcium Oxalate Crystals,Urine Occasional /HPF (Few); Glucose,Urine (UA) Negative (Negative); Hyaline Casts,Urine 4 /LPF (0-3); Ketones,Urine Negative (Negative); Mucus,Urine Occasional /LPF (Occasional); Nitrite,Urine Negative (Negative); Protein,Urine 30 MG/DL; RBC,Urine 6 /HPF (0-4); Squamous Epithelial Cell,Urine Occasional /HPF (0-10); Urine Color Yellow (Yellow); Urine Specific Gravity 1.026 (1.001-1.035); WBC,Urine 2 /HPF (0-6)
[2017-05-15] MEDS: methylPREDNISolone SOD SUC 40 MG/1 ML VIAL IV SCH (02:47)
[2017-05-15] MEDS: ENOXAPARIN 40 MG/0.4 ML SYRINGE SUBCUT SCH (06:11)
[2017-05-15] MEDS: ASPIRIN EC 325 MG TABLET PO SCH (09:08)
[2017-05-15] MEDS: CITALOPRAM 40 MG TABLET PO SCH (09:08)
[2017-05-15] MEDS: CARVEDILOL 6.25 MG TABLET PO SCH ×2 (09:08→21:35)
[2017-05-15] MEDS: LISINOPRIL 5 MG TABLET PO SCH ×2 (09:09→21:35)
[2017-05-15] MEDS: PANTOPRAZOLE 40 MG TABLET PO SCH (09:09)
[2017-05-15] MEDS: CEFDINIR 300 MG CAPSULE PO SCH ×2 (09:42→21:35)
[2017-05-15] MEDS: ROSUVASTATIN 20 MG TABLET PO SCH (21:35)
[2017-05-16] MEDS: ENOXAPARIN 40 MG/0.4 ML SYRINGE SUBCUT SCH (06:11)
[2017-05-16] MEDS: CARVEDILOL 6.25 MG TABLET PO SCH (08:48)
[2017-05-16] MEDS: PANTOPRAZOLE 40 MG TABLET PO SCH (08:48)
[2017-05-16] MEDS: ASPIRIN EC 325 MG TABLET PO SCH (08:48)
[2017-05-16] MEDS: CITALOPRAM 40 MG TABLET PO SCH (08:48)
[2017-05-16] MEDS: CEFDINIR 300 MG CAPSULE PO SCH (08:49)
[2017-05-16] MEDS: LISINOPRIL 5 MG TABLET PO SCH (08:49)
[2017-05-16] MEDS ORDERED: predniSONE 20 MG TABLET PO SCH (09:00)
[2017-05-16 09:46] VITALS: BP 149/88
[2017-05-16] MEDS ORDERED: PNEUMOCOCCAL VACCINE (13 VALENT) 0.5 ML SYRINGE IM ONE (10:00)
[2017-05-16] MEDS ORDERED: INFLUENZA VIRUS VACCINE 0.5 ML SYRINGE IM ONE (10:00)
== END 2017-05-16 12:24 | disposition home or self-care (01) | DRG 314 ==
LOC: EDUNIT# → EDBD → N.EDINP 00:56 → N.ED 00:56 → SUATTDRO 04:57 → N.TELES 13:36
PROVIDERS: ADMIT Internal Medicine; ATTEND Internal Medicine Infectious Disease

== ENCOUNTER 2017-06-07 10:15 | Observation (INO) ==
[2017-06-07] MEDS ORDERED: ASPIRIN 325 MG TABLET PO STA (10:39)
[2017-06-07] MEDS ORDERED: ASPIRIN 325 MG TABLET ONE (10:45)
[2017-06-07 11:16] LABS: Basophils # 0.1 10*3/uL (0.0-0.2); Basophils % 0.3 % (0.0-0.8); Eosinophils # 0.1 10*3/uL (0.0-0.87); Eosinophils % 0.8 % (0.00-10.9); Hematocrit 37.4 VOL% (35.7-47.0); Hemoglobin 12.9 GM/DL (12.0-16.0); Immature Granulocytes % 0.5 %; Immature Granulocytes Absolute 0.08 #; Lymphocytes # 2.1 10*3/uL (1.4-4.0); Lymphocytes % 13.3 % (21.3-54.2); Mean Corpuscular HGB Conc 34.5 GM/DL (32-36); Mean Corpuscular Hemoglobin 27 PG (27-34); Mean Corpuscular Volume 77.9 FL (87-102); Mean Platelet Volume 12.2 FL (9.6-12.0); Monocytes # 1.1 10*3/uL (0.11-0.8); Neutrophils # 12.4 10*3/uL (1.4-7.4); Neutrophils % 78.1 % (38.7-73.9); Platelet Count 196 T/CUMM (130-400); Red Cell Distribution Width 16.6 % (9.3-17.3); White Blood Count 15.9 T/CUMM (4-12)
[2017-06-07 11:24] LABS: PT Patient Result 10.9 SECS; Partial Thromboplastin Time 25.2 SECS (0-40)
[2017-06-07 11:37] LABS: Albumin 3.3 G/DL (3.4-5.0); Bilirubin,Total 1.1 MG/DL (0.2-1.0); Calcium 8.9 MG/DL (8.5-10.1); Osmolality,Calculated 276.5 MOS/KG (273-304); Potassium 3.8 MMOL/L (3.5-5.1)
[2017-06-07] MEDS ORDERED: ACETAMINOPHEN 325 MG TABLET PO PRN (13:08)
[2017-06-07] MEDS ORDERED: MAGNESIUM SULF RIDER 4 GM in PREMIX 1 EACH IV PRN (13:08)
[2017-06-07] MEDS ORDERED: ONDANSETRON 4 MG/2 ML VIAL IV PRN (13:08)
[2017-06-07] MEDS ORDERED: DOCUSATE SODIUM 100 MG CAPSULE PO PRN (13:08)
[2017-06-07] MEDS ORDERED: MORPHINE 2 MG/1 ML SYRINGE IV PRN (13:08)
[2017-06-07] MEDS ORDERED: POTASSIUM CHLORIDE RIDER 10 MEQ in PREMIX 1 EACH IV PRN (13:08)
[2017-06-07] MEDS ORDERED: ZALEPLON 5 MG CAPSULE PO PRN (13:08)
[2017-06-07] MEDS ORDERED: MAGNESIUM SULF RIDER 2 GM in PREMIX 1 EACH IV PRN (13:08)
[2017-06-07] MEDS ORDERED: NITROGLYCERIN SL 0.4 MG TABLET SL PRN (14:54)
[2017-06-07] MEDS: ENOXAPARIN 40 MG/0.4 ML SYRINGE SUBCUT SCH (16:58)
[2017-06-07] MEDS: PANTOPRAZOLE 40 MG TABLET PO SCH (16:58)
[2017-06-07 17:14] LABS: Apearance,Urine CLEAR (Clear); Bilirubin,Urine Negative (Negative); Blood, Urine Small mg/dL (Negative); Glucose,Urine (UA) Negative (Negative); Ketones,Urine Negative (Negative); Nitrite,Urine Negative (Negative); Protein,Urine 30 MG/DL; RBC,Urine 1 /HPF (0-4); Squamous Epithelial Cell,Urine Occasional /HPF (0-10); Urine Color Yellow (Yellow); Urine Specific Gravity 1.017 (1.001-1.035); WBC,Urine 1 /HPF (0-6)
[2017-06-07] MEDS: CLINDAMYCIN INJ 300 MG in PREMIX 1 EACH IV SCH (18:10)
[2017-06-07] MEDS: LEVOFLOXACIN INJ 500 MG in PREMIX 1 EACH IV SCH (18:43)
[2017-06-07] MEDS ORDERED: SODIUM CHLORIDE 0.9% 100 ML IV ONE (19:25)
[2017-06-07] MEDS ORDERED: DILTIAZEM 100 MG VIAL.ADD IV ONE (19:25)
[2017-06-07] MEDS: DILTIAZEM INJ 100 MG in SODIUM CHLORIDE 0.9% 100 ML IV SCH (19:32)
[2017-06-07] MEDS: ALBUTEROL/IPRATROPIUM 3 ML NEB RESP TX SCH (20:16)
[2017-06-07] MEDS ORDERED: CARVEDILOL 6.25 MG TABLET PO SCH (21:00)
[2017-06-07] MEDS: ROSUVASTATIN 20 MG TABLET PO SCH (21:23)
[2017-06-07] MEDS: CARVEDILOL 12.5 MG TABLET PO SCH (21:23)
[2017-06-08] MEDS: CLINDAMYCIN INJ 300 MG in PREMIX 1 EACH IV SCH ×3 (01:18→17:13)
[2017-06-08] MEDS: ALBUTEROL/IPRATROPIUM 3 ML NEB RESP TX SCH ×4 (01:43→19:11)
[2017-06-08 05:26] LABS: Basophils % 0.2 % (0.0-0.8); Eosinophils # 0.1 10*3/uL (0.0-0.87); Eosinophils % 0.9 % (0.00-10.9); Hematocrit 31.6 VOL% (35.7-47.0); Hemoglobin 11.1 GM/DL (12.0-16.0); Immature Granulocytes % 0.4 %; Immature Granulocytes Absolute 0.05 #; Lymphocytes # 3.8 10*3/uL (1.4-4.0); Lymphocytes % 30.3 % (21.3-54.2); Mean Corpuscular HGB Conc 35.1 GM/DL (32-36); Mean Corpuscular Hemoglobin 27 PG (27-34); Mean Corpuscular Volume 77.3 FL (87-102); Mean Platelet Volume 11.9 FL (9.6-12.0); Monocytes % 8.3 % (1.7-12.7); Neutrophils # 7.4 10*3/uL (1.4-7.4); Neutrophils % 59.9 % (38.7-73.9); Platelet Count 166 T/CUMM (130-400); Red Blood Count 4.09 MC/CUMM (3.8-5.5); Red Cell Distribution Width 16.5 % (9.3-17.3); White Blood Count 12.4 T/CUMM (4-12)
[2017-06-08 05:51] LABS: Calcium 8.3 MG/DL (8.5-10.1); Osmolality,Calculated 278.4 MOS/KG (273-304); Potassium 3.6 MMOL/L (3.5-5.1)
[2017-06-08] MEDS ORDERED: predniSONE 20 MG TABLET PO SCH (09:00)
[2017-06-08] MEDS: CITALOPRAM 40 MG TABLET PO SCH (09:19)
[2017-06-08] MEDS: FUROSEMIDE 20 MG TABLET PO SCH (09:19)
[2017-06-08] MEDS: ASPIRIN EC 325 MG TABLET PO SCH (09:19)
[2017-06-08] MEDS: CARVEDILOL 12.5 MG TABLET PO SCH ×2 (09:19→20:26)
[2017-06-08] MEDS: prednisoLONE 5 MG TABLET PO SCH (09:19)
[2017-06-08] MEDS: PANTOPRAZOLE 40 MG TABLET PO SCH (09:19)
[2017-06-08] MEDS: DILTIAZEM INJ 100 MG in SODIUM CHLORIDE 0.9% 100 ML IV SCH (09:21)
[2017-06-08] MEDS: ENOXAPARIN 40 MG/0.4 ML SYRINGE SUBCUT SCH (13:25)
[2017-06-08] MEDS: DILTIAZEM CD 180 MG CAPSULE PO SCH (13:58)
[2017-06-08] MEDS: LEVOFLOXACIN INJ 500 MG in PREMIX 1 EACH IV SCH (17:40)
[2017-06-08] MEDS: ROSUVASTATIN 20 MG TABLET PO SCH (20:26)
[2017-06-09] MEDS: ALBUTEROL/IPRATROPIUM 3 ML NEB RESP TX SCH ×4 (00:33→19:14)
[2017-06-09] MEDS: CLINDAMYCIN INJ 300 MG in PREMIX 1 EACH IV SCH ×3 (02:39→18:41)
[2017-06-09] MEDS: DILTIAZEM CD 180 MG CAPSULE PO SCH (08:07)
[2017-06-09] MEDS: ASPIRIN EC 325 MG TABLET PO SCH (08:07)
[2017-06-09] MEDS: FUROSEMIDE 20 MG TABLET PO SCH (08:08)
[2017-06-09] MEDS: prednisoLONE 5 MG TABLET PO SCH (08:08)
[2017-06-09] MEDS: CITALOPRAM 40 MG TABLET PO SCH (08:08)
[2017-06-09] MEDS: CARVEDILOL 12.5 MG TABLET PO SCH ×2 (08:08→22:11)
[2017-06-09] MEDS: PANTOPRAZOLE 40 MG TABLET PO SCH (08:11)
[2017-06-09] MEDS: ENOXAPARIN 40 MG/0.4 ML SYRINGE SUBCUT SCH (12:50)
[2017-06-09] MEDS ORDERED: guaiFENesin/DM ER 600-30 MG TABLET PO PRN (13:27)
[2017-06-09] MEDS: LEVOFLOXACIN INJ 500 MG in PREMIX 1 EACH IV SCH (19:16)
[2017-06-09] MEDS: ROSUVASTATIN 20 MG TABLET PO SCH (22:11)
[2017-06-10] MEDS: ALBUTEROL/IPRATROPIUM 3 ML NEB RESP TX SCH ×4 (01:25→19:30)
[2017-06-10] MEDS: CLINDAMYCIN INJ 300 MG in PREMIX 1 EACH IV SCH ×3 (02:12→18:02)
[2017-06-10] MEDS: ASPIRIN EC 325 MG TABLET PO SCH ×2 (09:27→13:46)
[2017-06-10] MEDS: CARVEDILOL 12.5 MG TABLET PO SCH ×3 (09:27→20:27)
[2017-06-10] MEDS: FUROSEMIDE 20 MG TABLET PO SCH ×2 (09:27→13:48)
[2017-06-10] MEDS: DILTIAZEM CD 180 MG CAPSULE PO SCH ×2 (09:27→13:46)
[2017-06-10] MEDS: CITALOPRAM 40 MG TABLET PO SCH ×2 (09:27→13:48)
[2017-06-10] MEDS: prednisoLONE 5 MG TABLET PO SCH ×2 (09:28→13:49)
[2017-06-10] MEDS: PANTOPRAZOLE 40 MG TABLET PO SCH ×2 (09:28→13:49)
[2017-06-10] MEDS ORDERED: ALBUTEROL/IPRATROPIUM 3 ML NEB RESP TX STA (10:37)
[2017-06-10] MEDS ORDERED: LIDOCAINE 2% 5 ML VIAL ONE (11:32)
[2017-06-10] MEDS ORDERED: PROPOFOL 200 MG/20 ML VIAL IV ONE (11:32)
[2017-06-10] MEDS: LEVOFLOXACIN INJ 500 MG in PREMIX 1 EACH IV SCH (18:48)
[2017-06-10] MEDS: ROSUVASTATIN 20 MG TABLET PO SCH (20:27)
[2017-06-11] MEDS: ALBUTEROL/IPRATROPIUM 3 ML NEB RESP TX SCH ×3 (00:38→13:26)
[2017-06-11] MEDS: CLINDAMYCIN INJ 300 MG in PREMIX 1 EACH IV SCH ×2 (02:39→09:05)
[2017-06-11 05:08] LABS: Basophils % 0.4 % (0.0-0.8); Eosinophils # 0.1 10*3/uL (0.0-0.87); Eosinophils % 0.5 % (0.00-10.9); Hematocrit 31.3 VOL% (35.7-47.0); Hemoglobin 11.5 GM/DL (12.0-16.0); Immature Granulocytes % 0.3 %; Immature Granulocytes Absolute 0.03 #; Lymphocytes # 2.4 10*3/uL (1.4-4.0); Lymphocytes % 23.2 % (21.3-54.2); Mean Corpuscular HGB Conc 36.7 GM/DL (32-36); Mean Corpuscular Hemoglobin 28 PG (27-34); Mean Corpuscular Volume 75.6 FL (87-102); Monocytes # 0.6 10*3/uL (0.11-0.8); Monocytes % 5.4 % (1.7-12.7); Neutrophils # 7.1 10*3/uL (1.4-7.4); Neutrophils % 70.2 % (38.7-73.9); Platelet Count 247 T/CUMM (130-400); Red Blood Count 4.14 MC/CUMM (3.8-5.5); Red Cell Distribution Width 16.1 % (9.3-17.3); White Blood Count 10.2 T/CUMM (4-12)
[2017-06-11 05:30] LABS: Calcium 8.7 MG/DL (8.5-10.1); Osmolality,Calculated 280.4 MOS/KG (273-304); Potassium 3.9 MMOL/L (3.5-5.1)
[2017-06-11] MEDS: PANTOPRAZOLE 40 MG TABLET PO SCH (09:04)
[2017-06-11] MEDS: ASPIRIN EC 325 MG TABLET PO SCH (09:04)
[2017-06-11] MEDS: CARVEDILOL 12.5 MG TABLET PO SCH (09:04)
[2017-06-11] MEDS: CITALOPRAM 40 MG TABLET PO SCH (09:04)
[2017-06-11] MEDS: DILTIAZEM CD 180 MG CAPSULE PO SCH (09:04)
[2017-06-11] MEDS: FUROSEMIDE 20 MG TABLET PO SCH (09:04)
[2017-06-11] MEDS: prednisoLONE 5 MG TABLET PO SCH (10:43)
[2017-06-11] MEDS ORDERED: CLINDAMYCIN 300 MG CAPSULE PO SCH (14:00)
[2017-06-11 16:07] VITALS: BP 142/87
[2017-06-12] MEDS ORDERED: LEVOFLOXACIN 250 MG TABLET PO SCH (09:00)
== END 2017-06-11 16:16 | disposition home or self-care (01) ==
LOC: N.EDINP 10:15 → N.ED 10:15 → N.EDINP 14:22 → N.TELES 15:26
PROVIDERS: ADMIT Internal Medicine Cardiovascular Disease; ATTEND Internal Medicine Cardiovascular Disease

== ENCOUNTER 2017-09-11 08:05 | Observation (INO) ==
[2017-09-11] MEDS ORDERED: ONDANSETRON 4 MG/2 ML VIAL IV STA (09:12)
[2017-09-11] MEDS ORDERED: NITROGLYCERIN SL 0.4 MG TABLET SL PRN (09:12)
[2017-09-11] MEDS ORDERED: NITROGLYCERIN 2% OINT 1 INCH/GM PACK TOP STA (09:12)
[2017-09-11] MEDS ORDERED: MORPHINE 4 MG/1 ML VIAL IV STA (09:12)
[2017-09-11] MEDS ORDERED: ASPIRIN 325 MG TABLET PO STA (09:12)
[2017-09-11] MEDS ORDERED: ALUM/MAG/SIMETH/LIDO VISC 1:1 30 ML BOTTLE PO STA (09:12)
[2017-09-11] MEDS ORDERED: ENOXAPARIN 100 MG/ML SYRINGE SUBCUT STA (09:12)
[2017-09-11 09:19] LABS: Basophils # 0.1 10*3/uL (0.0-0.2); Basophils % 0.4 % (0.0-0.8); Eosinophils # 0.1 10*3/uL (0.0-0.87); Eosinophils % 0.6 % (0.00-10.9); Hematocrit 37.6 VOL% (35.7-47.0); Hemoglobin 13.1 GM/DL (12.0-16.0); Immature Granulocytes Absolute 0.18 #; Lymphocytes # 3.4 10*3/uL (1.4-4.0); Lymphocytes % 18.4 % (21.3-54.2); Mean Corpuscular HGB Conc 34.8 GM/DL (32-36); Mean Corpuscular Hemoglobin 28 PG (27-34); Mean Platelet Volume 12.2 FL (9.6-12.0); Monocytes # 1.2 10*3/uL (0.11-0.8); Monocytes % 6.4 % (1.7-12.7); Neutrophils # 13.6 10*3/uL (1.4-7.4); Neutrophils % 73.2 % (38.7-73.9); Platelet Count 224 T/CUMM (130-400); Red Blood Count 4.64 MC/CUMM (3.8-5.5); Red Cell Distribution Width 13.9 % (9.3-17.3); White Blood Count 18.6 T/CUMM (4-12)
[2017-09-11 09:27] LABS: PT Patient Result 10.7 SECS; Partial Thromboplastin Time 27.7 SECS (0-40)
[2017-09-11 09:35] LABS: Bilirubin,Total 0.9 MG/DL (0.2-1.0); Calcium 8.4 MG/DL (8.5-10.1); Osmolality,Calculated 278.7 MOS/KG (273-304); Potassium 4.4 MMOL/L (3.5-5.1); Total Protein 6.7 G/DL (6.4-8.3)
[2017-09-11] MEDS ORDERED: MAGNESIUM SULF RIDER 4 GM in PREMIX 1 EACH IV PRN (09:43)
[2017-09-11] MEDS ORDERED: MAGNESIUM SULF RIDER 2 GM in PREMIX 1 EACH IV PRN (09:43)
[2017-09-11 10:30] LABS: Amorphous Crystals,Urine Occasional /HPF (Few); Apearance,Urine CLOUDY (Clear); Bacteria,Urine Occasional /HPF (Few); Bilirubin,Urine Negative (Negative); Blood, Urine Small mg/dL (Negative); Glucose,Urine (UA) Negative (Negative); Hyaline Casts,Urine 3 /LPF (0-3); Ketones,Urine Negative (Negative); Mucus,Urine Many /LPF (Occasional); Nitrite,Urine Negative (Negative); Protein,Urine 100 MG/DL; RBC,Urine 1 /HPF (0-4); Squamous Epithelial Cell,Urine Occasional /HPF (0-10); Urine Specific Gravity 1.023 (1.001-1.035); WBC,Urine 3 /HPF (0-6)
[2017-09-11 10:31] LABS: Urine Color Dark Yellow (Yellow)
[2017-09-11 10:34] LABS: Barbiturates Screen,Urine Negative (Negative); Benzodiazepines Screen,Urine Negative (Negative); Cannabinoid Screen,Urine Negative (Negative); Opiate Screen,Urine Negative (Negative); Phencyclidine Screen,Urine Negative (Negative)
[2017-09-11] MEDS: ENOXAPARIN 40 MG/0.4 ML SYRINGE SUBCUT SCH (12:06)
[2017-09-11] MEDS ORDERED: ALUM/MAG/SIMETH/LIDO VISC 1:1 30 ML BOTTLE PO ONE (18:09)
[2017-09-11] MEDS ORDERED: ACETAMINOPHEN 500 MG TABLET PO PRN (18:44)
[2017-09-11] MEDS ORDERED: MORPHINE 4 MG/1 ML VIAL IV PRN (18:44)
[2017-09-11] MEDS ORDERED: KETOROLAC 30 MG/1 ML VIAL IV ONE (18:44)
[2017-09-11] MEDS ORDERED: METOCLOPRAMIDE 10 MG TABLET PO PRN (18:44)
[2017-09-11] MEDS ORDERED: CYCLOBENZAPRINE 10 MG TABLET PO PRN (18:44)
[2017-09-11] MEDS: CARVEDILOL 12.5 MG TABLET PO SCH (21:07)
[2017-09-11] MEDS: GABAPENTIN 100 MG CAPSULE PO SCH (21:07)
[2017-09-11] MEDS: IBUPROFEN 400 MG TABLET PO SCH (21:07)
[2017-09-12] MEDS: ASPIRIN EC 325 MG TABLET PO SCH (08:31)
[2017-09-12] MEDS: PANTOPRAZOLE 40 MG TABLET PO SCH (08:31)
[2017-09-12] MEDS: GABAPENTIN 100 MG CAPSULE PO SCH ×3 (08:31→20:36)
[2017-09-12] MEDS: FUROSEMIDE 20 MG TABLET PO SCH (08:31)
[2017-09-12] MEDS: CARVEDILOL 12.5 MG TABLET PO SCH ×2 (08:32→20:36)
[2017-09-12] MEDS: IBUPROFEN 400 MG TABLET PO SCH ×2 (08:32→16:25)
[2017-09-12 11:24] LABS: Amorphous Crystals,Urine Occasional /HPF (Few); Apearance,Urine Slightly Hazy (Clear); Bilirubin,Urine Negative (Negative); Blood, Urine Negative (Negative); Glucose,Urine (UA) Negative (Negative); Hyaline Casts,Urine 3 /LPF (0-3); Ketones,Urine Negative (Negative); Mucus,Urine Occasional /LPF (Occasional); Nitrite,Urine Negative (Negative); Protein,Urine Negative; RBC,Urine <1 /HPF (0-4); Squamous Epithelial Cell,Urine Occasional /HPF (0-10); Urine Color Yellow (Yellow); Urine Specific Gravity 1.021 (1.001-1.035); Urine Urobilinogen < 2.0 EU/DL (0.2-1.0); WBC,Urine 3 /HPF (0-6)
[2017-09-12 12:01] LABS: Basophils % 0.2 % (0.0-0.8); Eosinophils # 0.1 10*3/uL (0.0-0.87); Eosinophils % 1.3 % (0.00-10.9); Hematocrit 35.6 VOL% (35.7-47.0); Hemoglobin 12.2 GM/DL (12.0-16.0); Immature Granulocytes % 0.5 %; Immature Granulocytes Absolute 0.05 #; Lymphocytes # 2.1 10*3/uL (1.4-4.0); Lymphocytes % 21.2 % (21.3-54.2); Mean Corpuscular HGB Conc 34.3 GM/DL (32-36); Mean Corpuscular Hemoglobin 28 PG (27-34); Mean Corpuscular Volume 80.9 FL (87-102); Mean Platelet Volume 11.1 FL (9.6-12.0); Monocytes # 0.7 10*3/uL (0.11-0.8); Monocytes % 7.2 % (1.7-12.7); Neutrophils # 6.9 10*3/uL (1.4-7.4); Neutrophils % 69.6 % (38.7-73.9); Platelet Count 255 T/CUMM (130-400); Red Cell Distribution Width 13.8 % (9.3-17.3); White Blood Count 9.9 T/CUMM (4-12)
[2017-09-12 12:21] LABS: Calcium 8.7 MG/DL (8.5-10.1); Osmolality,Calculated 278.7 MOS/KG (273-304); Potassium 3.9 MMOL/L (3.5-5.1)
[2017-09-12] MEDS: ENOXAPARIN 40 MG/0.4 ML SYRINGE SUBCUT SCH (12:41)
[2017-09-13 05:20] LABS: Basophils % 0.3 % (0.0-0.8); Eosinophils # 0.2 10*3/uL (0.0-0.87); Eosinophils % 1.8 % (0.00-10.9); Hematocrit 31.9 VOL% (35.7-47.0); Hemoglobin 10.7 GM/DL (12.0-16.0); Immature Granulocytes % 0.3 %; Immature Granulocytes Absolute 0.03 #; Lymphocytes # 2.8 10*3/uL (1.4-4.0); Lymphocytes % 29.5 % (21.3-54.2); Mean Corpuscular HGB Conc 33.5 GM/DL (32-36); Mean Corpuscular Hemoglobin 28 PG (27-34); Mean Corpuscular Volume 82.2 FL (87-102); Mean Platelet Volume 11.5 FL (9.6-12.0); Monocytes # 0.8 10*3/uL (0.11-0.8); Monocytes % 8.6 % (1.7-12.7); Neutrophils # 5.6 10*3/uL (1.4-7.4); Neutrophils % 59.5 % (38.7-73.9); Platelet Count 216 T/CUMM (130-400); Red Blood Count 3.88 MC/CUMM (3.8-5.5); Red Cell Distribution Width 13.8 % (9.3-17.3); White Blood Count 9.4 T/CUMM (4-12)
[2017-09-13 05:26] LABS: Calcium 8.2 MG/DL (8.5-10.1); Osmolality,Calculated 283.3 MOS/KG (273-304); Potassium 4.2 MMOL/L (3.5-5.1)
[2017-09-13] MEDS: GABAPENTIN 100 MG CAPSULE PO SCH ×3 (08:37→21:24)
[2017-09-13] MEDS: PANTOPRAZOLE 40 MG TABLET PO SCH (08:37)
[2017-09-13] MEDS: ASPIRIN EC 325 MG TABLET PO SCH (08:38)
[2017-09-13] MEDS: ENOXAPARIN 40 MG/0.4 ML SYRINGE SUBCUT SCH ×2 (08:38→10:26)
[2017-09-13] MEDS: FUROSEMIDE 20 MG TABLET PO SCH (08:38)
[2017-09-13] MEDS: CARVEDILOL 12.5 MG TABLET PO SCH ×2 (08:38→21:24)
[2017-09-13] MEDS ORDERED: LISINOPRIL 5 MG TABLET PO SCH (14:00)
[2017-09-13 20:26] LABS: ABG HCO3 24.5 MMOL/L (20-26); ABG Oxygen Saturation 97.2 % (95-100); ABG PCO2 35.3 MM HG (35-48); ABG PH 7.437 (7.35-7.45); ABG PO2 96.2 MM HG (80-95); ABG TCO2 21.1 MMOL/L (23-27); Allen Test Positive
[2017-09-14 05:23] LABS: Basophils % 0.3 % (0.0-0.8); Eosinophils # 0.2 10*3/uL (0.0-0.87); Eosinophils % 1.7 % (0.00-10.9); Hematocrit 33.8 VOL% (35.7-47.0); Hemoglobin 11.8 GM/DL (12.0-16.0); Immature Granulocytes % 0.6 %; Immature Granulocytes Absolute 0.06 #; Lymphocytes # 3.6 10*3/uL (1.4-4.0); Lymphocytes % 34.6 % (21.3-54.2); Mean Corpuscular HGB Conc 34.9 GM/DL (32-36); Mean Corpuscular Hemoglobin 29 PG (27-34); Mean Corpuscular Volume 81.6 FL (87-102); Mean Platelet Volume 10.7 FL (9.6-12.0); Monocytes # 0.7 10*3/uL (0.11-0.8); Monocytes % 6.7 % (1.7-12.7); Neutrophils # 5.8 10*3/uL (1.4-7.4); Neutrophils % 56.1 % (38.7-73.9); Platelet Count 278 T/CUMM (130-400); Red Blood Count 4.14 MC/CUMM (3.8-5.5); Red Cell Distribution Width 13.6 % (9.3-17.3); White Blood Count 10.3 T/CUMM (4-12)
[2017-09-14 05:46] LABS: Calcium 8.8 MG/DL (8.5-10.1); Osmolality,Calculated 283.1 MOS/KG (273-304); Potassium 3.9 MMOL/L (3.5-5.1)
[2017-09-14 08:02] VITALS: BP 125/90
[2017-09-14] MEDS ORDERED: VALSARTAN 80 MG TABLET PO SCH (09:00)
[2017-09-14] MEDS: ASPIRIN EC 325 MG TABLET PO SCH (09:00)
[2017-09-14] MEDS: CARVEDILOL 12.5 MG TABLET PO SCH (09:00)
[2017-09-14] MEDS: FUROSEMIDE 20 MG TABLET PO SCH (09:00)
[2017-09-14] MEDS: PANTOPRAZOLE 40 MG TABLET PO SCH (09:00)
[2017-09-14] MEDS: GABAPENTIN 100 MG CAPSULE PO SCH (09:00)
[2017-09-14] MEDS: ENOXAPARIN 40 MG/0.4 ML SYRINGE SUBCUT SCH (10:34)
== END 2017-09-14 10:54 | disposition home or self-care (01) ==
LOC: EDUNIT# → EDBD → N.EDINP 08:05 → N.ED 08:05 → N.TELEN 10:16
PROVIDERS: ADMIT Internal Medicine Cardiovascular Disease; ATTEND Internal Medicine Cardiovascular Disease

== ENCOUNTER 2017-12-08 14:40 | Observation (INO) ==
[2017-12-08] MEDS ORDERED: ASPIRIN 325 MG TABLET PO STA (15:02)
[2017-12-08] MEDS ORDERED: ENOXAPARIN 100 MG/ML SYRINGE SUBCUT STA (15:02)
[2017-12-08 15:33] LABS: Basophils # 0.1 10*3/uL (0.0-0.2); Basophils % 0.4 % (0.0-0.8); Eosinophils # 0.1 10*3/uL (0.0-0.87); Eosinophils % 0.6 % (0.00-10.9); Hematocrit 38.6 VOL% (35.7-47.0); Hemoglobin 13.7 GM/DL (12.0-16.0); Immature Granulocytes % 0.4 %; Immature Granulocytes Absolute 0.05 #; Lymphocytes # 2.5 10*3/uL (1.4-4.0); Mean Corpuscular HGB Conc 35.5 GM/DL (32-36); Mean Corpuscular Hemoglobin 28 PG (27-34); Mean Corpuscular Volume 79.4 FL (87-102); Mean Platelet Volume 11.7 FL (9.6-12.0); Monocytes % 8.4 % (1.7-12.7); Neutrophils # 8.6 10*3/uL (1.4-7.4); Neutrophils % 70.2 % (38.7-73.9); Platelet Count 250 T/CUMM (130-400); Red Blood Count 4.86 MC/CUMM (3.8-5.5); Red Cell Distribution Width 14.7 % (9.3-17.3); White Blood Count 12.3 T/CUMM (4-12)
[2017-12-08] MEDS ORDERED: ENOXAPARIN 120 MG/0.8 ML SYRINGE SUBCUT ONE (15:33)
[2017-12-08 15:40] LABS: PT Patient Result 10.3 SECS
[2017-12-08 15:52] LABS: Albumin 3.5 G/DL (3.4-5.0); Bilirubin,Total 0.4 MG/DL (0.2-1.0); Calcium 8.9 MG/DL (8.5-10.1); Osmolality,Calculated 280.3 MOS/KG (273-304); Total Protein 7.2 G/DL (6.4-8.3)
[2017-12-08] MEDS ORDERED: BISACODYL 5 MG TABLET PO PRN (16:52)
[2017-12-08] MEDS ORDERED: MAGNESIUM SULF RIDER 4 GM in PREMIX 1 EACH IV PRN (16:52)
[2017-12-08] MEDS ORDERED: guaiFENesin/DM ER 600-30 MG TABLET PO PRN (16:52)
[2017-12-08] MEDS ORDERED: MAGNESIUM SULF RIDER 2 GM in PREMIX 1 EACH IV PRN (16:52)
[2017-12-08] MEDS ORDERED: diphenhydrAMINE CAP 25 MG CAPSULE PO PRN (16:52)
[2017-12-08] MEDS ORDERED: PROMETHAZINE 25 MG TABLET PO PRN (16:52)
[2017-12-08] MEDS ORDERED: DOCUSATE SODIUM 100 MG CAPSULE PO PRN (16:52)
[2017-12-08] MEDS ORDERED: ZALEPLON 5 MG CAPSULE PO PRN (16:52)
[2017-12-08] MEDS ORDERED: ONDANSETRON 4 MG/2 ML VIAL IV PRN (16:52)
[2017-12-08] MEDS ORDERED: ACETAMINOPHEN 325 MG TABLET PO PRN (16:52)
[2017-12-08] MEDS ORDERED: CYCLOBENZAPRINE 10 MG TABLET PO PRN (16:56)
[2017-12-08] MEDS ORDERED: NITROGLYCERIN SL 0.4 MG TABLET SL PRN (16:56)
[2017-12-08] MEDS ORDERED: METOCLOPRAMIDE 10 MG TABLET PO PRN (16:56)
[2017-12-08] MEDS ORDERED: hydrALAZINE 20 MG/1 ML VIAL IV PRN (16:57)
[2017-12-08] MEDS ORDERED: ENOXAPARIN 40 MG/0.4 ML SYRINGE SUBCUT SCH (21:00)
[2017-12-08] MEDS: GABAPENTIN 100 MG CAPSULE PO SCH (21:25)
[2017-12-08] MEDS: CARVEDILOL 12.5 MG TABLET PO SCH (21:25)
[2017-12-08] MEDS: IRBESARTAN 150 MG TABLET PO SCH (21:25)
[2017-12-08] MEDS: ACETAMINOPHEN 325 MG TABLET PO SCH (21:26)
[2017-12-09 04:51] LABS: Calcium 8.4 MG/DL (8.5-10.1); Osmolality,Calculated 282.3 MOS/KG (273-304); Potassium 3.6 MMOL/L (3.5-5.1); Risk Ratio 2.9; Thyroid Stimulating Hormone 1.5 uIU/ml (0.358-3.74); VLDL CHOLESTEROL 16.2 MG/DL
[2017-12-09] MEDS ORDERED: ASPIRIN EC 325 MG TABLET PO SCH (09:00)
[2017-12-09] MEDS ORDERED: amLODIPine 5 MG TABLET PO SCH (09:00)
[2017-12-09] MEDS ORDERED: PANTOPRAZOLE 40 MG TABLET PO SCH (09:00)
[2017-12-09 11:57] VITALS: BP 169/94
[2017-12-09] MEDS: IRBESARTAN 150 MG TABLET PO SCH (12:18)
[2017-12-09] MEDS: GABAPENTIN 100 MG CAPSULE PO SCH (12:19)
[2017-12-09] MEDS: CARVEDILOL 12.5 MG TABLET PO SCH (12:19)
[2017-12-09] MEDS: ACETAMINOPHEN 325 MG TABLET PO SCH (12:20)
== END 2017-12-09 12:50 | disposition home or self-care (01) ==
LOC: EDUNIT# → N.EDINP 14:40 → N.ED 14:40 → N.2W 17:38 → N.TELEN 17:40
PROVIDERS: ADMIT Internal Medicine Cardiovascular Disease; ATTEND Internal Medicine Cardiovascular Disease

== ENCOUNTER 2019-11-18 07:58 | Observation (INO) ==
[2019-11-18] MEDS ORDERED: ONDANSETRON 4 MG/2 ML VIAL IV STA (08:25)
[2019-11-18] MEDS ORDERED: SODIUM CHLORIDE 0.9% 1,000 ML IV STA (08:25)
[2019-11-18] MEDS ORDERED: NITROGLYCERIN SL 0.4 MG TABLET SL PRN (08:37)
[2019-11-18 09:27] LABS: Basophils # 0.1 10*3/uL (0.0-0.2); Basophils % 0.6 % (0.0-0.8); Eosinophils # 0.2 10*3/uL (0.0-0.87); Eosinophils % 2.5 % (0.00-10.9); Hematocrit 36.6 VOL% (35.7-47.0); Hemoglobin 12.7 GM/DL (12.0-16.0); Immature Granulocytes % 0.5 %; Immature Granulocytes Absolute 0.05 #; Lymphocytes % 32.3 % (21.3-54.2); Mean Corpuscular HGB Conc 34.7 GM/DL (32-36); Mean Corpuscular Volume 83.4 FL (87-102); Mean Platelet Volume 10.4 FL (9.6-12.0); Monocytes % 7.1 % (1.7-12.7); Platelet Count 245 T/CUMM (130-400); Red Blood Count 4.39 MC/CUMM (3.8-5.5); Red Cell Distribution Width 13.1 % (9.3-17.3); White Blood Count 9.3 T/CUMM (4-12)
[2019-11-18 09:37] LABS: Apearance,Urine Slightly Hazy (Clear); Bacteria,Urine Occasional /HPF (Few); Bilirubin,Urine Negative (Negative); Blood, Urine Negative (Negative); Calcium Oxalate Crystals,Urine Many /HPF (Few); Glucose,Urine (UA) Negative (Negative); Hyaline Casts,Urine 37 /LPF (0-3); Ketones,Urine Negative (Negative); Mucus,Urine Occasional /LPF (Occasional); Nitrite,Urine Negative (Negative); Protein,Urine Negative; RBC,Urine 2 /HPF (0-4); Squamous Epithelial Cell,Urine Occasional /HPF (0-10); Urine Color Yellow (Yellow); Urine Specific Gravity 1.015 (1.001-1.035); Urine Urobilinogen < 2.0 EU/DL (0.2-1.0); WBC,Urine 1 /HPF (0-6)
[2019-11-18 09:44] LABS: Alanine Aminotransferase 20 U/L (13-56); Albumin 3.3 G/DL (3.4-5.0); Alkaline Phosphatase 72 U/L (45-117); Aspartate Amino Transferase 12 U/L (0-37); Bilirubin,Total < 0.39 MG/DL (0.2-1.0); Blood Urea Nitrogen 20 MG/DL (7-18); Calcium 9.1 MG/DL (8.5-10.1); Estimated Glom Filtration Rate 105 ML/MIN; Glucose 119 MG/DL (74-106); Osmolality,Calculated 280.5 MOS/KG (273-304); Total Protein 7.3 G/DL (6.4-8.3)
[2019-11-18 09:54] LABS: Band Neutrophils 1 % (0-10); Eosinophils 5 % (0-10); Lymphocytes 32 % (20-55); Platelet Estimate Normal; Segmented Neutrophils 57 % (50-85); Total Cells Counted 100
[2019-11-18 09:56] LABS: Polychromasia Few; Reactive Lymphocytes 1+
[2019-11-18] MEDS ORDERED: GLUCAGON 1 MG VIAL IM PRN (13:51)
[2019-11-18] MEDS ORDERED: PROMETHAZINE 25 MG/1 ML VIAL IM PRN (13:51)
[2019-11-18] MEDS ORDERED: ONDANSETRON 4 MG/2 ML VIAL IV PRN (13:51)
[2019-11-18] MEDS ORDERED: ACETAMINOPHEN 325 MG TABLET PO PRN (13:51)
[2019-11-18] MEDS ORDERED: DEXTROSE 50% 25 GM/50 ML VIAL IV PRN (13:51)
[2019-11-18 14:35] LABS: Risk Ratio 2.2; Thyroid Stimulating Hormone 4.24 uIU/ml (0.358-3.74); VLDL CHOLESTEROL 20.6 MG/DL
[2019-11-18] MEDS ORDERED: PANTOPRAZOLE 40 MG TABLET PO SCH (14:45)
[2019-11-18] MEDS: LACTATED RINGERS 1,000 ML IV SCH (15:20)
[2019-11-18] MEDS ORDERED: ENOXAPARIN 40 MG/0.4 ML SYRINGE SUBCUT SCH (21:00)
[2019-11-18] MEDS: carvediloL 12.5 MG TABLET PO SCH (21:12)
[2019-11-18] MEDS: SIMVASTATIN 40 MG TABLET PO SCH (21:12)
[2019-11-18] MEDS: PANTOPRAZOLE 40 MG TABLET PO SCH (21:14)
[2019-11-19] MEDS: LACTATED RINGERS 1,000 ML IV SCH ×2 (03:49→12:15)
[2019-11-19 06:39] LABS: Basophils % 0.1 % (0.0-0.8); Eosinophils # 0.2 10*3/uL (0.0-0.87); Eosinophils % 2.5 % (0.00-10.9); Hematocrit 34.8 VOL% (35.7-47.0); Hemoglobin 12.3 GM/DL (12.0-16.0); Immature Granulocytes % 0.4 %; Immature Granulocytes Absolute 0.03 #; Lymphocytes # 2.3 10*3/uL (1.4-4.0); Lymphocytes % 33.6 % (21.3-54.2); Mean Corpuscular HGB Conc 35.3 GM/DL (32-36); Mean Corpuscular Volume 82.1 FL (87-102); Mean Platelet Volume 10.5 FL (9.6-12.0); Monocytes % 5.4 % (1.7-12.7); Platelet Count 213 T/CUMM (130-400); Red Blood Count 4.24 MC/CUMM (3.8-5.5); Red Cell Distribution Width 13.1 % (9.3-17.3); White Blood Count 6.8 T/CUMM (4-12)
[2019-11-19 06:43] LABS: Calcium 8.5 MG/DL (8.5-10.1); Osmolality,Calculated 279.4 MOS/KG (273-304)
[2019-11-19 07:45] LABS: Anisocytosis 1+; Band Neutrophils 1 % (0-10); Eosinophils 5 % (0-10); Lymphocytes 35 % (20-55); Nucleated Red Blood Cells 1 (0-5); Platelet Estimate Normal; Segmented Neutrophils 55 % (50-85); Total Cells Counted 100
[2019-11-19] MEDS: carvediloL 12.5 MG TABLET PO SCH ×2 (09:51→20:52)
[2019-11-19] MEDS: CLOPIDOGREL 75 MG TABLET PO SCH (09:52)
[2019-11-19] MEDS: PANTOPRAZOLE 40 MG TABLET PO SCH ×2 (09:52→20:52)
[2019-11-19] MEDS: ASPIRIN EC 81 MG TABLET PO SCH (12:15)
[2019-11-19] MEDS: SIMVASTATIN 40 MG TABLET PO SCH (20:52)
[2019-11-20] MEDS: LACTATED RINGERS 1,000 ML IV SCH ×3 (00:30→19:17)
[2019-11-20 06:03] LABS: Basophils % 0.1 % (0.0-0.8); Eosinophils # 0.3 10*3/uL (0.0-0.87); Eosinophils % 4.5 % (0.00-10.9); Hematocrit 34.6 VOL% (35.7-47.0); Hemoglobin 12.2 GM/DL (12.0-16.0); Immature Granulocytes % 0.1 %; Immature Granulocytes Absolute 0.01 #; Lymphocytes # 2.4 10*3/uL (1.4-4.0); Lymphocytes % 33.7 % (21.3-54.2); Mean Corpuscular HGB Conc 35.3 GM/DL (32-36); Mean Corpuscular Volume 82.4 FL (87-102); Mean Platelet Volume 10.6 FL (9.6-12.0); Monocytes % 5.2 % (1.7-12.7); Neutrophils % 56.4 % (38.7-73.9); Platelet Count 212 T/CUMM (130-400); Red Cell Distribution Width 13.2 % (9.3-17.3); White Blood Count 7.1 T/CUMM (4-12)
[2019-11-20 06:27] LABS: Calcium 8.8 MG/DL (8.5-10.1); Osmolality,Calculated 278.3 MOS/KG (273-304)
[2019-11-20] MEDS: ASPIRIN EC 81 MG TABLET PO SCH (09:52)
[2019-11-20] MEDS: PANTOPRAZOLE 40 MG TABLET PO SCH ×2 (09:52→20:48)
[2019-11-20] MEDS: CLOPIDOGREL 75 MG TABLET PO SCH (09:52)
[2019-11-20] MEDS: carvediloL 12.5 MG TABLET PO SCH ×2 (09:53→20:48)
[2019-11-20] MEDS: SACUBITRIL/VALSARTAN 49-51 MG TABLET PO SCH (20:48)
[2019-11-20] MEDS: SIMVASTATIN 40 MG TABLET PO SCH (20:48)
[2019-11-21] MEDS: LACTATED RINGERS 1,000 ML IV SCH ×2 (00:45→08:59)
[2019-11-21 05:59] LABS: Basophils % 0.1 % (0.0-0.8); Eosinophils # 0.5 10*3/uL (0.0-0.87); Eosinophils % 6.6 % (0.00-10.9); Hematocrit 34.8 VOL% (35.7-47.0); Hemoglobin 12.4 GM/DL (12.0-16.0); Immature Granulocytes % 0.4 %; Immature Granulocytes Absolute 0.03 #; Lymphocytes # 2.3 10*3/uL (1.4-4.0); Lymphocytes % 32.3 % (21.3-54.2); Mean Corpuscular HGB Conc 35.6 GM/DL (32-36); Mean Corpuscular Volume 82.1 FL (87-102); Monocytes % 5.9 % (1.7-12.7); Neutrophils % 54.7 % (38.7-73.9); Platelet Count 197 T/CUMM (130-400); Red Blood Count 4.24 MC/CUMM (3.8-5.5); Red Cell Distribution Width 13.2 % (9.3-17.3)
[2019-11-21 06:23] LABS: Calcium 9.1 MG/DL (8.5-10.1); Osmolality,Calculated 278.3 MOS/KG (273-304)
[2019-11-21] MEDS ORDERED: POTASSIUM CHLORIDE 20 MEQ TABLET PO PRN (08:14)
[2019-11-21] MEDS: CLOPIDOGREL 75 MG TABLET PO SCH (08:57)
[2019-11-21] MEDS: PANTOPRAZOLE 40 MG TABLET PO SCH (08:57)
[2019-11-21] MEDS: ASPIRIN EC 81 MG TABLET PO SCH (08:57)
[2019-11-21] MEDS: carvediloL 12.5 MG TABLET PO SCH (08:57)
[2019-11-21] MEDS ORDERED: SPIRONOLACTONE 25 MG TABLET PO SCH (09:00)
[2019-11-21] MEDS ORDERED: propofoL 200 MG/20 ML VIAL IV ONE (09:00)
[2019-11-21] MEDS ORDERED: LIDOCAINE 2% 5 ML VIAL ONE (09:00)
[2019-11-21] MEDS: SACUBITRIL/VALSARTAN 49-51 MG TABLET PO SCH (14:09)
[2019-11-21 15:37] VITALS: BP 128/71
[2019-11-22] MEDS ORDERED: LACTATED RINGERS 1,000 ML IV SCH (08:00)
== END 2019-11-21 15:55 | disposition home or self-care (01) ==
LOC: N.ED 07:58 → N.EDINP 07:58 → SUATTDRO 13:47 → N.TELEN 15:01
PROVIDERS: ADMIT Emergency Medicine; ATTEND Internal Medicine

== ENCOUNTER 2021-05-30 05:53 | Inpatient (IN) ==
[2021-05-26 11:15] LABS: Basophils % 0.5 % (0.0-0.8); Eosinophils # 0.2 10*3/uL (0.0-0.87); Eosinophils % 2.2 % (0.00-10.9); Hematocrit 36.7 VOL% (35.7-47.0); Hemoglobin 12.5 GM/DL (12.0-16.0); Immature Granulocytes % 0.3 %; Immature Granulocytes Absolute 0.02 #; Lymphocytes % 37.8 % (21.3-54.2); Mean Corpuscular HGB Conc 34.1 GM/DL (32-36); Mean Corpuscular Volume 80.8 FL (87-102); Mean Platelet Volume 11.7 FL (9.6-12.0); Monocytes % 6.1 % (1.7-12.7); Neutrophils % 53.1 % (38.7-73.9); Platelet Count 226 T/CUMM (130-400); Red Blood Count 4.54 MC/CUMM (3.8-5.5); Red Cell Distribution Width 13.2 % (9.3-17.3); White Blood Count 7.8 T/CUMM (4-12)
[2021-05-26 11:25] LABS: PT Patient Result 10.9 SECS (10.5-12.0); Partial Thromboplastin Time 25.4 SECS (23.8-32.1)
[2021-05-26 11:30] LABS: Calcium 8.8 MG/DL (8.5-10.1); Osmolality,Calculated 278.7 MOS/KG (273-304); Potassium 4.3 MMOL/L (3.5-5.1)
[2021-05-30] MEDS ORDERED: LACTATED RINGERS 1,000 ML IV SCH (06:00)
[2021-05-30] MEDS ORDERED: ALBUTEROL/IPRATROPIUM 3 ML NEB RESP TX ONE (06:47)
[2021-05-30] MEDS ORDERED: SUCCINYLCHOLINE 200 MG/10 ML VIAL ONE (07:53)
[2021-05-30] MEDS ORDERED: fentaNYL 100 MCG/2 ML VIAL ONE (07:53)
[2021-05-30] MEDS ORDERED: SEVOFLURANE 1 UNIT/15 MINUTE INH ONE ×5 (07:53→10:54)
[2021-05-30] MEDS ORDERED: ROCURONIUM 50 MG/5 ML VIAL IV ONE ×2 (07:53→09:37)
[2021-05-30] MEDS ORDERED: propofoL 200 MG/20 ML VIAL IV ONE (07:53)
[2021-05-30] MEDS ORDERED: ONDANSETRON 4 MG/2 ML VIAL ONE ×2 (07:53→10:54)
[2021-05-30] MEDS ORDERED: ETOMIDATE 40 MG/20 ML VIAL IV ONE (07:53)
[2021-05-30] MEDS ORDERED: LIDOCAINE 2% 5 ML VIAL ONE ×2 (07:53→09:31)
[2021-05-30] MEDS ORDERED: DEXAMETHASONE 4 MG/1 ML VIAL ONE ×3 (08:00→09:29)
[2021-05-30] MEDS ORDERED: ACETAMINOPHEN INJ 1,000 MG/100 ML VIAL IV ONE (08:01)
[2021-05-30] MEDS ORDERED: LIDOCAINE 1% 5 ML VIAL ONE (08:20)
[2021-05-30] MEDS ORDERED: DEXMEDETOMIDINE 200 MCG/2 ML VIAL ONE (08:20)
[2021-05-30] MEDS ORDERED: ROPIVACAINE 0.5% 30 ML VIAL ONE ×2 (08:20→08:21)
[2021-05-30] MEDS ORDERED: ePHEDrine 50 MG/ML VIAL ONE (08:40)
[2021-05-30] MEDS ORDERED: KETOROLAC 30 MG/1 ML VIAL ONE (08:48)
[2021-05-30] MEDS ORDERED: SODIUM CHLORIDE 0.9% 250 ML IV ONE (08:58)
[2021-05-30] MEDS ORDERED: PHENYLEPHRINE 10 MG/1 ML VIAL IV ONE (08:58)
[2021-05-30] MEDS ORDERED: ceFAZolin 1,000 MG VIAL ONE (09:09)
[2021-05-30] MEDS ORDERED: NEOSTIGMINE 10 MG/10 ML VIAL ONE (09:32)
[2021-05-30] MEDS ORDERED: GLYCOPYRROLATE 0.4 MG/2 ML VIAL ONE (09:32)
[2021-05-30] MEDS ORDERED: LACTATED RINGERS 1,000 ML IV ONE (09:33)
[2021-05-30] MEDS ORDERED: PHENYLEPHRINE 1 MG/10 ML SYRINGE IV ONE (09:33)
[2021-05-30] MEDS ORDERED: HYDROmorphone 2 MG/1 ML VIAL ONE (10:54)
[2021-05-30] MEDS ORDERED: ONDANSETRON 4 MG/2 ML VIAL IV PRN ×2 (11:03→11:53)
[2021-05-30] MEDS ORDERED: HYDROmorphone 2 MG/1 ML VIAL IV PRN ×2 (11:03→12:19)
[2021-05-30] MEDS ORDERED: ACETAMINOPHEN 325 MG TABLET PO PRN (11:53)
[2021-05-30] MEDS ORDERED: GLUCAGON 1 MG VIAL IM PRN (11:53)
[2021-05-30] MEDS ORDERED: NITROGLYCERIN SL 0.4 MG TABLET SL PRN (11:53)
[2021-05-30] MEDS ORDERED: PROMETHAZINE 25 MG/1 ML VIAL IM PRN (11:53)
[2021-05-30] MEDS ORDERED: DEXTROSE 10% 250 ML BAG IV PRN (12:21)
[2021-05-30] MEDS: INSULIN REGULAR 100 UNIT/ML SUBCUT SCH ×3 (13:14→20:00)
[2021-05-30] MEDS: KETOROLAC 15 MG/1 ML VIAL IV SCH ×2 (13:15→17:46)
[2021-05-30] MEDS: LACTATED RINGERS 1,000 ML IV SCH ×2 (13:15→22:30)
[2021-05-30] MEDS ORDERED: HydrOXYzine PAMOATE 25 MG CAPSULE PO PRN (15:00)
[2021-05-30] MEDS: GABAPENTIN 100 MG CAPSULE PO SCH ×2 (16:11→20:39)
[2021-05-30] MEDS: carvediloL 12.5 MG TABLET PO SCH (17:38)
[2021-05-30] MEDS: SIMVASTATIN 40 MG TABLET PO SCH (20:38)
[2021-05-30] MEDS: SACUBITRIL/VALSARTAN 49-51 MG TABLET PO SCH (20:38)
[2021-05-30] MEDS: MELATONIN 3 MG TABLET PO SCH (20:39)
[2021-05-31] MEDS: KETOROLAC 15 MG/1 ML VIAL IV SCH ×5 (00:10→23:39)
[2021-05-31] MEDS: ENOXAPARIN 40 MG/0.4 ML SYRINGE SUBCUT SCH (05:24)
[2021-05-31 06:06] LABS: Basophils % 0.3 % (0.0-0.8); Hematocrit 34.1 VOL% (35.7-47.0); Hemoglobin 11.8 GM/DL (12.0-16.0); Immature Granulocytes % 0.5 %; Immature Granulocytes Absolute 0.08 #; Lymphocytes # 1.8 10*3/uL (1.4-4.0); Lymphocytes % 11.8 % (21.3-54.2); Mean Corpuscular HGB Conc 34.6 GM/DL (32-36); Mean Platelet Volume 10.6 FL (9.6-12.0); Monocytes % 5.4 % (1.7-12.7); Platelet Count 206 T/CUMM (130-400); Red Blood Count 4.26 MC/CUMM (3.8-5.5); Red Cell Distribution Width 13.2 % (9.3-17.3); White Blood Count 15.6 T/CUMM (4-12)
[2021-05-31 06:25] LABS: Calcium 8.7 MG/DL (8.5-10.1); Osmolality,Calculated 273.2 MOS/KG (273-304); Potassium 4.6 MMOL/L (3.5-5.1)
[2021-05-31] MEDS: LACTATED RINGERS 1,000 ML IV SCH (06:25)
[2021-05-31 06:28] LABS: Hypochromia Slight; Lymphocytes 10 % (20-55); Microcytosis Slight; Platelet Estimate Adequate; Segmented Neutrophils 85 % (50-85); Total Cells Counted 100
[2021-05-31] MEDS ORDERED: ALBUTEROL 2.5 MG/3 ML NEB RESP TX SCH (07:00)
[2021-05-31] MEDS: INSULIN REGULAR 100 UNIT/ML SUBCUT SCH ×4 (07:14→20:49)
[2021-05-31] MEDS: PANTOPRAZOLE 40 MG TABLET PO SCH (09:03)
[2021-05-31] MEDS: GABAPENTIN 100 MG CAPSULE PO SCH ×3 (09:03→21:17)
[2021-05-31] MEDS: MULTIVITAMIN (CENTRUM) TABLET PO SCH (09:03)
[2021-05-31] MEDS: carvediloL 12.5 MG TABLET PO SCH ×2 (09:03→16:24)
[2021-05-31] MEDS: SERTRALINE 100 MG TABLET PO SCH (09:03)
[2021-05-31] MEDS: ISOSORBIDE MONONITRATE 30 MG TABLET PO SCH (09:03)
[2021-05-31] MEDS: CALCIUM (CARBONATE)/VITAMIN D 600 MG-400 UNIT TABLET PO SCH (09:03)
[2021-05-31] MEDS: ASPIRIN EC 81 MG TABLET PO SCH (09:03)
[2021-05-31] MEDS: SACUBITRIL/VALSARTAN 49-51 MG TABLET PO SCH ×2 (15:07→21:17)
[2021-05-31] MEDS: MELATONIN 3 MG TABLET PO SCH (21:17)
[2021-05-31] MEDS: SIMVASTATIN 40 MG TABLET PO SCH (21:17)
[2021-06-01] MEDS: ENOXAPARIN 40 MG/0.4 ML SYRINGE SUBCUT SCH (05:09)
[2021-06-01] MEDS: KETOROLAC 15 MG/1 ML VIAL IV SCH (05:10)
[2021-06-01] MEDS: carvediloL 12.5 MG TABLET PO SCH (09:24)
[2021-06-01] MEDS: GABAPENTIN 100 MG CAPSULE PO SCH (09:24)
[2021-06-01] MEDS: ISOSORBIDE MONONITRATE 30 MG TABLET PO SCH (09:24)
[2021-06-01] MEDS: ASPIRIN EC 81 MG TABLET PO SCH (09:24)
[2021-06-01] MEDS: MULTIVITAMIN (CENTRUM) TABLET PO SCH (09:24)
[2021-06-01] MEDS: SERTRALINE 100 MG TABLET PO SCH (09:24)
[2021-06-01] MEDS: SACUBITRIL/VALSARTAN 49-51 MG TABLET PO SCH (09:24)
[2021-06-01] MEDS: CALCIUM (CARBONATE)/VITAMIN D 600 MG-400 UNIT TABLET PO SCH (09:24)
[2021-06-01] MEDS: PANTOPRAZOLE 40 MG TABLET PO SCH (09:24)
[2021-06-01 10:15] LABS: Basophils # 0.1 10*3/uL (0.0-0.2); Basophils % 0.5 % (0.0-0.8); Eosinophils # 0.4 10*3/uL (0.0-0.87); Eosinophils % 2.8 % (0.00-10.9); Hematocrit 38.1 VOL% (35.7-47.0); Immature Granulocytes % 0.4 %; Immature Granulocytes Absolute 0.06 #; Lymphocytes # 5.7 10*3/uL (1.4-4.0); Lymphocytes % 38.9 % (21.3-54.2); Mean Corpuscular HGB Conc 34.1 GM/DL (32-36); Mean Corpuscular Volume 81.8 FL (87-102); Mean Platelet Volume 10.6 FL (9.6-12.0); Monocytes % 4.8 % (1.7-12.7); Neutrophils % 52.6 % (38.7-73.9); Platelet Count 236 T/CUMM (130-400); Red Blood Count 4.66 MC/CUMM (3.8-5.5); Red Cell Distribution Width 13.6 % (9.3-17.3); White Blood Count 14.6 T/CUMM (4-12)
[2021-06-01] MEDS: INSULIN REGULAR 100 UNIT/ML SUBCUT SCH ×2 (10:24→11:36)
[2021-06-01 10:36] LABS: Eosinophils 5 % (0-10); Lymphocytes 47 % (20-55); Platelet Estimate Adequate; Segmented Neutrophils 43 % (50-85); Total Cells Counted 100
[2021-06-01 10:37] LABS: Atypical Lymphocytes Few
[2021-06-01] MEDS ORDERED: POLYETHYLENE GLYCOL POWDER 17 GM PACK PO SCH (11:09)
[2021-06-01 12:13] VITALS: BP 130/80
== END 2021-06-01 12:30 | disposition home or self-care (01) | DRG 354 ==
LOC: N.SDSINP 05:53 → N.OR 05:53 → N.SDSINP 05:54 → N.3E 11:39
PROVIDERS: ADMIT Surgery; ATTEND Surgery